=== PATIENT | female | born 1975 | race Caucasian/White ===

== ENCOUNTER 2017-12-26 16:44 | Emergency (ER) | payer BC, MEDICAID ==
[2017-12-26 16:54] VITALS: BP 126/79
--- NOTE | 2017-12-26 18:35 | EDM.PDOC ---
ED HPI GENERAL MEDICAL PROBLEM - General Chief Complaint: [employer] Problem Stated Complaint: CYST ON OVARY Time Seen by Provider: 12/26/17 18:10 Source of Information: Reports: Patient History Limitations: Reports: No Limitations - History of Present Illness INITIAL COMMENTS - FREE TEXT/NARRATIVE: 42-year-old female presents for evaluation and treatment of left pelvic pain. Patient's reports that the pain started about a week ago. She was seen by OB last week and found to have ovarian cyst. She is currently scheduled have the cyst removed on Tuesday. She is to have a preop on Tuesday. Patient states that the pain is not really worsening but she continues to have discomfort despite taking [place]. She is taking 1 [place] at a time and 2 before bed. She states that it "takes the edge off." She is concerned that she is having to miss work due to her pain she feels she cannot wait until surgery on Tuesday. She is here requesting that she go to the OR tonight due to the pain. Reports associated symptoms of a decreased appetite and states that she feels like she was "run over by a truck ". No fevers, chills, nausea, vomiting, lightheadedness or dizziness. She reports that she's had some vaginal bleeding, darker blood and spotting on and off since this all started. [employer] providers Dr. Romero. Treatments ACQUISITION LEAD: Reports: Other (see below) Other Treatments ACQUISITION LEAD: hydrocodone Left Abdomen Pain Score (Numeric/FACES): 7 - Related Data Allergies Allergy/AdvReac Type Severity Reaction Status Date / Time Iodinated Contrast- Oral and Allergy Severe Anaphylactic Verified 11/16/15 12:32 IV Dye Shock [Iodinated Contrast Media - IV Dye] azithromycin Allergy Intermediate Rash Verified 11/16/15 12:32 ciprofloxacin [From Cipro] Allergy Intermediate Hives Verified 11/16/15 12:32 ciprofloxacin HCl Allergy Intermediate Hives Verified 11/16/15 12:32 [From Cipro] erythromycin lactobionate Allergy Intermediate Rash Verified 11/16/15 12:32 [From Erythrocin] Penicillins Allergy Intermediate Rash Verified 11/16/15 12:32 Home Meds: Home Meds Acetaminophen/HYDROcodone [[place] 325-5 MG] 1 tab PO Q4H PRN #20 tablet 12/26/17 [Rx] oxyCODONE HCl/Acetaminophen [oxyCODONE-Acetaminophen 5-325] 5 - 325 mg PO Q6H PRN 12/26/17 [History] Past Medical History - Past Health History Medical/Surgical History: Denies Medical/Surgical History HEENT History: Reports: Impaired Vision Other HEENT History: wears contacts and glasses Cardiovascular History: Reports: Heart Murmur, Other (See Below) Other Cardiovascular History: Mitral valve prolapse [employer] History: Reports: 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, , Other (See Below) Other OB/BYN History: ;ovarian cysts Neurological History: Reports: Migraines - Past Surgical History Cardiovascular Surgical History: Reports: Other (See Below) GI Surgical History: Reports: Appendectomy, Other (See Below) Female Surgical History: Reports: Section Social & Family History - Tobacco Use Smoking Status *Q: Never Smoker Second Hand Smoke Exposure: No - Caffeine Use Caffeine Use: Reports: Coffee, Energy Drinks, Soda, Tea - Recreational Drug Use Recreational Drug Use: No ED ROS GENERAL - Review of Systems Review Of Systems: See Below Constitutional: Denies: Fever, Chills GI/Abdominal: Denies: Abdominal Pain, Nausea, Vomiting : Reports: Pain (left pelvic), Other (intermittent vaginal bleeding) Neurological: Denies: Syncope ED EXAM, GI/ABD - Physical Exam Exam: See Below Exam Limited By: No Limitations General Appearance: Alert, WD/WN, Anxious, Mild Distress Respiratory/Chest: No Respiratory Distress, Lungs Clear, Normal Breath Sounds Cardiovascular: Normal Peripheral Pulses, Regular Rate, Rhythm, No Murmur GI/Abdominal Exam: Normal Bowel Sounds, Soft, Non-Tender (Female) Exam: Other (identifies pain medial to the left iliace creast) Neurological: Alert, Oriented, Normal Cognition Psychiatric: Normal Affect, Normal Mood Skin Exam: Warm, Dry, Normal Color Course - Vital Signs Last Recorded V/S: Last Vital Signs Temp 36.8 C 12/26/17 16:53 Pulse 88 12/26/17 16:53 Resp 20 12/26/17 16:53 BP 126/79 12/26/17 16:53 Pulse Ox 100 12/26/17 16:53 - Re-Assessments/Exams Free Text/Narrative Re-Assessment/Exam: 12/26/17 18:30 I spoke with the patient's [employer] provider Dr. Nick marcelino regarding this patient. Dr. Romero does have some concerns about her cardiac history and would prefer that she has her preop on Tuesday as planned. She states that she is an 8 cm ovarian cyst of the left ovary. No torsion or any findings to suggest she needs an urgent cystectomy. Recommending that she continue with her current plan of care pending there is no any findings tonight to suggest that she needs to go to the ER urgently. The patient does look uncomfortable on the ER but does not look in any obvious distress. Her vitals are normal. I Do not feel she needs to go to the OR tonight for an emergent cystectomy. Does not sound that her pain is any worse. her symptoms have not changed. she just has mostly concerns about missing work due to this. We will discharge her home at this time. Discharge instructions as documented. Departure - Departure Time of Disposition: 18:31 Disposition: Home, Self-Care 01 Condition: Fair Clinical Impression: Ovarian cyst - Discharge Information Prescriptions: Acetaminophen/HYDROcodone [[place] 325-5 MG] 1 tab PO Q4H PRN #20 tablet PRN Reason: Pain Instructions: Ovarian Cyst, [id number] Referrals: PCP,None [Primary Care Provider] - Peggy Romero MD [Physician] - Forms: ED Department Discharge, ED Return to Work/School Form Additional Instructions: Contact Dr. Murrell's office tomorrow. See if there is some of the things he earlier to clear you for surgery. [place] 1 to 2 tabs every 4-6 hours as needed for severe pain not relieved by over -the-counter ibuprofen. norco is habit-forming, take as few of these as needed to control your pain. Do not drive or operate machinery within 12 hours of taking [place]. please return to the er for symptoms change or worsen.
== END 2017-12-26 18:52 | disposition home or self-care (01) ==
LOC: JD.ED 16:44
DX: N83.202 Unspecified ovarian cyst, left side (principal); Z91.041 Radiographic dye allergy status; Z90.49 Acquired absence of other specified parts of digestive tract
CPT/HCPCS: 99283; 99284

== ENCOUNTER 2017-12-30 11:52 | Inpatient (IN) | payer BC ==
[~2017-12-30 11:52] MED LIST: Lactated Ringers 1,000 ML IV SCH; Lidocaine 1%/Sod Bicarbonate in NS 8.4% 1 ML Syringe IDERM PRN; Sodium Chloride 0.9% 10 ML Syringe FLUSH PRN
[2017-12-30] MEDS ORDERED: Propofol 200 MG/20 ML SDV ONE ×2 (12:07→15:32)
[2017-12-30] MEDS ORDERED: Rocuronium 50 MG/5 ML Vial ONE ×2 (12:09→15:05)
[2017-12-30] MEDS ORDERED: fentaNYL 250 MCG/5 ML SDV ONE (12:09)
[2017-12-30] MEDS ORDERED: Bupivacaine 0.5% 30 ML SDV ONE (12:10)
[2017-12-30] MEDS ORDERED: Midazolam 1 MG/ML 2 ML SDV ONE (12:10)
--- NOTE | 2017-12-30 12:35 | PCM.PREANE ---
Preanesthetic Assessment - Anesthesia/Transfusion/Family Hx Anesthesia History: Prior Anesthesia Without Reaction Family History of Anesthesia Reaction: No Transfusion History: No Prior Transfusion(s) Intubation History: Unknown - Review of Systems General: No Symptoms Pulmonary: No Symptoms Cardiovascular: No Symptoms Gastrointestinal: No Symptoms Neurological: No Symptoms Other: Reports: None - Physical Assessment NPO Status Date: 12/29/17 NPO Status Time: 23:00 Pulse: 76 O2 Sat by Pulse Oximetry: 100 Respiratory Rate: 20 Blood Pressure: 118/76 Temperature: 98.5 C ASA Class: 2 Mental Status: Alert & Oriented x3 Airway Class: Mallampati = 1 Dentition: Reports: Normal Dentition Thyro-Mental Finger Breadths: 3 Mouth Opening Finger Breadths: 3 Lungs: Clear to Auscultation, Normal Respiratory Effort Cardiovascular: Regular Rate, Regular Rhythm - Lab Values: Laboratory Last Values Urine HCG, Qual Negative (NEGATIVE) 12/30/17 11:55 - Allergies Allergies/Adverse Reactions: Allergies Allergy/AdvReac Type Severity Reaction Status Date / Time Iodinated Contrast- Oral and Allergy Severe Anaphylactic Verified 11/16/15 12:32 IV Dye Shock [Iodinated Contrast Media - IV Dye] azithromycin Allergy Intermediate Rash Verified 11/16/15 12:32 ciprofloxacin [From Cipro] Allergy Intermediate Hives Verified 11/16/15 12:32 ciprofloxacin HCl Allergy Intermediate Hives Verified 11/16/15 12:32 [From Cipro] erythromycin lactobionate Allergy Intermediate Rash Verified 11/16/15 12:32 [From Erythrocin] Penicillins Allergy Intermediate Rash Verified 11/16/15 12:32 - Acknowledgements Anesthesia Type Planned: General Anesthesia Pt an Appropriate Candidate for the Planned Anesthesia: Yes Alternatives and Risks of Anesthesia Discussed w Pt/Guardian: Yes Pt/Guardian Understands and Agrees with Anesthesia Plan: Yes PreAnesthesia Questionnaire - Past Health History Medical/Surgical History: Denies Medical/Surgical History HEENT History: Reports: Impaired Vision Other HEENT History: wears contacts and glasses Cardiovascular History: Reports: Heart Murmur, Other (See Below) (mitral valve prolapse) Other Cardiovascular History: Mitral valve prolapse Respiratory History: Reports: None Gastrointestinal History: Reports: None Genitourinary History: Reports: None 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, , Other (See Below) Other OB/BYN History: ;ovarian cysts Musculoskeletal History: Reports: None Neurological History: Reports: Migraines (no headache today) Psychiatric History: Reports: None Endocrine/Metabolic History: Reports: None Hematologic History: Reports: None Immunologic History: Reports: None Oncologic (Cancer) History: Reports: None Dermatologic History: Reports: None - Infectious Disease History Infectious Disease History: Reports: None - Past Surgical History Head Surgeries/Procedures: Reports: None HEENT Surgical History: Reports: None, Adenoidectomy, Tonsillectomy Cardiovascular Surgical History: Reports: Other (See Below) (heart cath as a child for murmur per pt mother) GI Surgical History: Reports: Appendectomy, Other (See Below) Female Surgical History: Reports: Section, Other (See Below) ( diagnostic laparoscopies for endometriosis) Male Surgical History: Reports: None - SUBSTANCE USE Smoking Status *Q: Never Smoker Second Hand Smoke Exposure: No Recreational Drug Use History: No - HOME MEDS Home Medications: Home Meds Acetaminophen/HYDROcodone [[place] 325-5 MG] 1 tab PO Q4H PRN #20 tablet 12/26/17 [Rx] oxyCODONE HCl/Acetaminophen [oxyCODONE-Acetaminophen 5-325] 5 - 325 mg PO Q6H PRN 12/26/17 [History] - CURRENT (IN HOUSE) MEDS Current Meds: Current Medications Lactated Ringer's (Ringers, Lactated) 1,000 mls @ 125 mls/hr IV ASDIRECTED MELISSA Stop: 12/30/17 23:00 Lidocaine/Sodium Bicarbonate (Buffered Lidocaine 1% In Ns 8.4%) 0.25 ml IDERM ONETIME PRN PRN Reason: Prior to IV Start Stop: 12/30/17 18:00 Sodium Chloride (Saline Flush) 10 ml FLUSH ASDIRECTED PRN PRN Reason: Keep Vein Open Stop: 12/30/17 18:00 Discontinued Medications Bupivacaine HCl (Marcaine 0.5%) Confirm Administered Dose 30 ml .ROUTE .STK-MED ONE Stop: 12/30/17 12:11 Fentanyl (Sublimaze) Confirm Administered Dose 250 mcg .ROUTE .STK-MED ONE Stop: 12/30/17 12:10 Midazolam HCl (Versed 1 Mg/Ml) Confirm Administered Dose 2 mg .ROUTE .STK-MED ONE Stop: 12/30/17 12:11 Propofol (Diprivan 20 Ml) Confirm Administered Dose 200 mg .ROUTE .STK-MED ONE Stop: 12/30/17 12:08 Rocuronium [place] (Zemuron) Confirm Administered Dose 50 mg .ROUTE .STK-MED ONE Stop: 12/30/17 12:10
[2017-12-30] MEDS ORDERED: Ondansetron 4 MG/2 ML SDV IVPUSH PRN ×2 (13:43→17:56)
[2017-12-30] MEDS ORDERED: fentaNYL 100 MCG/2 ML SDV IVPUSH PRN (13:43)
[2017-12-30] MEDS ORDERED: diphenhydrAMINE 50 MG/ML SDV IVPUSH PRN (13:43)
[2017-12-30] MEDS ORDERED: Meperidine PF 50 MG/ML Syringe IVPUSH PRN ×2 (13:43→16:44)
[2017-12-30] MEDS ORDERED: ceFAZolin 1 GM Vial ONE ×3 (13:50→15:12)
[2017-12-30] MEDS ORDERED: Ondansetron 4 MG/2 ML SDV ONE (13:50)
[2017-12-30] MEDS ORDERED: Ketorolac 30 MG/ML SDV ONE (13:50)
[2017-12-30] MEDS ORDERED: HYDROmorphone 0.5 MG/0.5 ML Syringe ONE ×3 (13:51→16:16)
[2017-12-30] MEDS ORDERED: fentaNYL 100 MCG/2 ML SDV ONE ×2 (14:06→14:31)
[2017-12-30] MEDS ORDERED: HYDROmorphone 0.5 MG/0.5 ML Syringe IVPUSH ONE (14:15)
[2017-12-30] MEDS ORDERED: Dexamethasone 4 MG/ML 5 ML MDV ONE (15:33)
[2017-12-30] MEDS ORDERED: Neostigmine Methylsulfate 1 MG/ML 5 ML Syringe ONE (16:00)
--- NOTE | 2017-12-30 16:32 | PCM.OPNOTE ---
- General Post-Op/Procedure Note Date of Surgery/Procedure: 12/30/17 Operative Procedure(s): Diagnostic laparoscopy with conversion to exploratory laparotomy, extensive lysis of adhesions, and left salpingo-oophorectomy Findings: Enlarged left ovary appearing about 8-9 cm in size. Cyst is simple in appearance. Flimsy and dense adhesive disease between the ovary and bowel and also between the fallopian tube and bowel. Edematous and inflamed infundibulopelvic ligament. Normal appearance of the uterus and right ovary. Pre Op Diagnosis: Ovarian cyst Post-Op Diagnosis: Same Anesthesia Technique: General ET Tube Primary Surgeon: Peggy Romero Anesthesia Provider: Kat Apple Pathology: Left ovary, fallopian tube sent to pathology. Fluid Replacement, Intraop: 2,500 EBL in mLs: 120 Drain/Tube Comments:: None Complications: None Condition: Good Free Text/Narrative:: The risks, benefits, indications, potential complications, and alternatives were explained to the patient and informed consent obtained. The patient was taken to the Operating Room where general anesthesia was induced without complication. The patient was placed in dorsal lithotomy with Triston Stirrups. The patient was then prepped and draped in the usual sterile fashion. A sterile bivalve speculum was placed into the vagina and the anterior lip of the cervix was grasped with a single tooth tenaculum. A [employer] uterine manipulator was then advanced into the cervix and attached to the tenaculum to allow uterine manipulation throughout the procedure. The speculum was removed from the vagina. Attention was then turned to the patients abdomen where a Veress needle was inserted in the left upper quadrant about 2 cm below the inferior margin of the rib and in the midclavicular line. Intraabdominal placement was confirmed with a drop test using a saline filled syringe and low intraabdominal pressure on low flow. A horizontal incision was made and the 5 mm blunt trocar was inserted with the 5 mm laparoscope inserted through the trocar for direct visualization of abdominal entry through the clear view lens. Once intraabdominal placement was confirmed, the blunt obturator was removed and the laparoscope was inserted. A pneumoperitoneum was obtained with C02 gas. The patient was placed in Trendelenburg position and the uterus was manipulated to reveal the pelvic findings detailed above as well. A vertical incision was made in the umbilical fold and an additional 5 mm port was placed. Unfortunately due to adhesive disease between the bowel and ovary/fallopian tube decision made to convert to an open procedure. The two 5 mm trocars were removed under direct visualization. The pneumoperitoneum was allowed to escape. A Pfannenstiel skin incision was made with a scalpel and carried down to the rectus fascia. The fascia was incised and opened the length of the skin incision. The peritoneum was entered sharply and extended. Exploration of the abdomen and pelvis was undertaken with findings noted above. The bowel was then packed with laparotomy sponges and an Manish retractor was placed to optimize visualization of the operating field. Using a combination of sharp dissection and blunt dissection the adhesions between the bowel and the ovary were taken down. The same process was carried out between the fallopian tube and bowel. Bleeding encountered with this dissection was controlled with interrupted sutures of 3-0 vicryl placed in figure of eight fashion and also cautery. Towards the end of this dissection there was rupture of the ovarian cyst with slow release of a large amount of clear fluid. Eventually the infundibulopelvic ligament was able to be isolated , cauterized, and transected with the Ligasure. This was then used to cauterize and transect from the fimbria to the level of the uterine cornua. The utero-ovarian ligament was then cauterized and transected with the Ligasure thus freeing the ovary and fallopian tube. Irrigation performed of the abdomen. All dissection beds and pedicles were inspected one more time and found to be hemostatic. The rectus fascia was closed with a running 0-vicryl suture. Subcutaneous tissues were ensured to be hemostatic and was then closed with a running suture of 0 vicryl. The skin was closed with a running 4-0 Monocryl suture and a sterile dressing applied. The previous laparoscopic skin incisions were re-approximated with 4-0 Monocryl in a running subcuticular fashion. Dermabond was also used to seal the incisions. Attention then turned to the vagina where the hulka manipulator was removed. Hemostasis of site obtained with silver nitrate. A waterman catheter was then placed in a sterile fashion given conversion to open procedure. The patient tolerated the procedure well. All sponge, needle, and instrument counts were correct times two. She was taken to the recovery room in stable condition.
--- NOTE | 2017-12-30 16:44 | PCM.POSTAN ---
POST ANESTHESIA ASSESSMENT - MENTAL STATUS Mental Status: Alert, Oriented - VITAL SIGNS Pulse Rate: 98 SaO2: 100 Resp Rate: 19 Blood Pressure: 107/60 Temperature: 37.3 C - RESPIRATORY Respiratory Status: Respiratory Rate WNL, Airway Patent, O2 Saturation Stable, Supplemental Oxygen - CARDIOVASCULAR CV Status: Pulse Rate WNL, Blood Pressure Stable - GASTROINTESTINAL GI Status: No Symptoms - PAIN Pain Score: 0 - POST OP HYDRATION Hydration Status: Adequate & Stable
[2017-12-30] MEDS: Acetaminophen/oxyCODONE 325-5 MG Tab PO PRN ×2 (18:40→23:22)
[2017-12-30] MEDS ORDERED: Lactated Ringers 1,000 ML IV SCH (18:45)
--- NOTE | 2017-12-30 18:49 | PCM48HPAN ---
Post Anesthesia Note - EVALUATION WITHIN 48HRS OF ANESTHETIC Vital Signs in Normal Range: Yes Patient Participated in Evaluation: Yes Respiratory Function Stable: Yes Airway Patent: Yes Cardiovascular Function Stable: Yes Hydration Status Stable: Yes Pain Control Satisfactory: Yes Nausea and Vomiting Control Satisfactory: Yes Mental Status Recovered: Yes
[2017-12-30] MEDS: ceFAZolin 2 GM in Premix Bag 1 BAG IV SCH (19:00)
[2017-12-30] MEDS: Docusate Sodium 100 MG Cap PO SCH (20:29)
[2017-12-31] MEDS: ceFAZolin 2 GM in Premix Bag 1 BAG IV SCH ×2 (01:55→09:26)
[2017-12-31] MEDS: Ketorolac 15 MG/ML SDV IVPUSH SCH ×2 (01:56→09:24)
[2017-12-31] MEDS: Acetaminophen/oxyCODONE 325-5 MG Tab PO PRN ×5 (05:29→22:46)
--- NOTE | 2017-12-31 08:43 | PCM.SURGPN ---
- General Info Date of Service: 12/31/17 POD#: 1 Functional Status: Reports: Pain Controlled, Tolerating Diet, Ambulating - Review of Systems General: Reports: No Symptoms Pulmonary: Reports: No Symptoms Cardiovascular: Reports: No Symptoms Gastrointestinal: Reports: Abdominal Pain (manageable ) Genitourinary: Reports: No Symptoms Musculoskeletal: Reports: No Symptoms Neurological: Reports: No Symptoms - Patient Data Vitals - Most Recent: Last Vital Signs Temp 36.8 C 12/31/17 08:17 Pulse 76 12/31/17 08:17 Resp 16 12/31/17 08:17 BP 106/85 12/31/17 08:17 Pulse Ox 100 12/31/17 08:17 Weight - Most Recent: 61.32 kg I&O - Last 24 Hours: Intake & Output 12/30/17 12/31/17 12/31/17 22:59 06:59 14:59 Intake Total 3550 925 Output Total 650 1300 Balance 2900 -375 Lab Results Last 24 Hrs: Laboratory Results - last 24 hr 12/30/17 12/30/17 12/30/17 Range/Units 11:55 12:15 12:15 WBC 8.39 (3.98-10.04) K/mm3 RBC 4.53 (3.98-5.22) M/mm3 Hgb 9.7 L (11.2-15.7) gm/L Hct 32.3 L (34.1-44.9) % MCV 71.3 L (79.4-94.8) fl MCH 21.4 L (25.6-32.2) pg MCHC 30.0 L (32.2-35.5) g/dl RDW Std Deviation 37.7 (36.4-46.3) fL Plt Count 304 (182-369) K/mm3 MPV 9.8 (9.4-12.3) fl Neut % (Auto) 71.8 H (34.0-71.1) % Lymph % (Auto) 18.2 L (19.3-51.7) % [place] % (Auto) 8.2 (4.7-12.5) % Eos % (Auto) 1.1 (0.7-5.8) Baso % (Auto) 0.5 (0.1-1.2) % Neut # (Auto) 6.02 (1.56-6.13) K/mm3 Lymph # (Auto) 1.53 (1.18-3.74) K/mm3 [place] # (Auto) 0.69 H (0.24-0.36) K/mm3 Eos # (Auto) 0.09 (0.04-0.36) K/mm3 Baso # (Auto) 0.04 (0.01-0.08) K/mm3 Manual Slide Review Abnormal smear Sodium 138 (136-145) mEq/L Potassium 3.6 (3.5-5.1) mEq/L Chloride 103 (98-107) mEq/L Carbon Dioxide 24 (21-32) mEq/L Anion Gap 14.6 (5-15) BUN 12 (7-18) mg/dL Creatinine 0.6 (0.55-1.02) mg/dL Est Cr Clr Drug Dosing TNP Estimated GFR (MDRD) > 60 (>60) mL/min BUN/Creatinine Ratio 20.0 H (14-18) Glucose 85 (74-106) mg/dL Calcium 9.0 (8.5-10.1) mg/dL Urine HCG, Qual Negative (NEGATIVE) Blood Type Gel Antibody Screen 12/30/17 12/31/17 Range/Units 12:15 05:33 WBC 16.31 H (3.98-10.04) K/mm3 RBC 3.82 L (3.98-5.22) M/mm3 Hgb 8.1 L (11.2-15.7) gm/L Hct 27.5 L (34.1-44.9) % MCV 72.0 L (79.4-94.8) fl MCH 21.2 L (25.6-32.2) pg MCHC 29.5 L (32.2-35.5) g/dl RDW Std Deviation 37.8 (36.4-46.3) fL Plt Count 283 (182-369) K/mm3 MPV 9.9 (9.4-12.3) fl Neut % (Auto) (34.0-71.1) % Lymph % (Auto) (19.3-51.7) % [place] % (Auto) (4.7-12.5) % Eos % (Auto) (0.7-5.8) Baso % (Auto) (0.1-1.2) % Neut # (Auto) (1.56-6.13) K/mm3 Lymph # (Auto) (1.18-3.74) K/mm3 [place] # (Auto) (0.24-0.36) K/mm3 Eos # (Auto) (0.04-0.36) K/mm3 Baso # (Auto) (0.01-0.08) K/mm3 Manual Slide Review Sodium (136-145) mEq/L Potassium (3.5-5.1) mEq/L Chloride (98-107) mEq/L Carbon Dioxide (21-32) mEq/L Anion Gap (5-15) BUN (7-18) mg/dL Creatinine (0.55-1.02) mg/dL Est Cr Clr Drug Dosing Estimated GFR (MDRD) (>60) mL/min BUN/Creatinine Ratio (14-18) Glucose (74-106) mg/dL Calcium (8.5-10.1) mg/dL Urine HCG, Qual (NEGATIVE) Blood Type AB POSITIVE Gel Antibody Screen Negative Med Orders - Current: Current Medications Docusate Sodium (Colace) 100 mg PO BID [facility] Last Admin: 12/30/17 20:29 Dose: Not Given Lactated Ringer's (Ringers, Lactated) 1,000 mls @ 75 mls/hr IV ASDIRECTED [facility] Last Admin: 12/30/17 19:00 Dose: 50 mls/hr Ketorolac Tromethamine (Toradol) 30 mg IVPUSH Q8H [facility] Stop: 12/31/17 09:01 Last Admin: 12/31/17 01:56 Dose: 30 mg Meperidine HCl (Demerol) 12.5 mg IVPUSH ONETIME PRN PRN Reason: Shivering Ondansetron HCl (Zofran) 4 mg IVPUSH Q6H PRN PRN Reason: Nausea/Vomiting Last Admin: 12/30/17 20:57 Dose: 4 mg Oxycodone/Acetaminophen (Percocet 325-5 Mg) 2 tab PO Q4H PRN PRN Reason: Pain (moderate 4-6) Last Admin: 12/31/17 05:29 Dose: 2 tab Discontinued Medications Bupivacaine HCl (Marcaine 0.5%) Confirm Administered Dose 30 ml .ROUTE .STK-MED ONE Stop: 12/30/17 12:11 Last Admin: 12/30/17 13:59 Dose: 8 ml Cefazolin Sodium (Ancef) Confirm Administered Dose 1 gm .ROUTE .STK-MED ONE Stop: 12/30/17 13:51 Cefazolin Sodium (Ancef) Confirm Administered Dose 1 gm .ROUTE .STK-MED ONE Stop: 12/30/17 13:51 Cefazolin Sodium (Ancef) Confirm Administered Dose 2 gm .ROUTE .STK-MED ONE Stop: 12/30/17 15:13 Dexamethasone (Dexamethasone) Confirm Administered Dose 20 mg .ROUTE .STK-MED ONE Stop: 12/30/17 15:34 Diphenhydramine HCl (Benadryl) 25 mg IVPUSH Q6H PRN PRN Reason: pruritis Stop: 12/30/17 18:00 Fentanyl (Sublimaze) Confirm Administered Dose 250 mcg .ROUTE .STK-MED ONE Stop: 12/30/17 12:10 Fentanyl (Sublimaze) 50 mcg IVPUSH Q5M PRN PRN Reason: Pain Stop: 12/30/17 18:00 Last Admin: 12/30/17 17:00 Dose: 50 mcg Fentanyl (Sublimaze) Confirm Administered Dose 100 mcg .ROUTE .STK-MED ONE Stop: 12/30/17 14:07 Fentanyl (Sublimaze) Confirm Administered Dose 100 mcg .ROUTE .STK-MED ONE Stop: 12/30/17 14:32 Glycopyrrolate () Confirm Administered Dose 1 mg .ROUTE .STK-MED ONE Stop: 12/30/17 16:01 Hydromorphone HCl (Dilaudid) 0.5 mg IVPUSH ONETIME ONE Stop: 12/30/17 14:16 Last Admin: 12/30/17 18:50 Dose: Not Given Hydromorphone HCl (Dilaudid) Confirm Administered Dose 0.5 mg .ROUTE .STK-MED ONE Stop: 12/30/17 13:52 Hydromorphone HCl (Dilaudid) Confirm Administered Dose 0.5 mg .ROUTE .STK-MED ONE Stop: 12/30/17 16:07 Hydromorphone HCl (Dilaudid) Confirm Administered Dose 0.5 mg .ROUTE .STK-MED ONE Stop: 04/20/18 16:17 Lactated Ringer's (Ringers, Lactated) 1,000 mls @ 125 mls/hr IV ASDIRECTED [facility] Stop: 12/30/17 23:00 Last Admin: 12/30/17 12:20 Dose: 125 mls/hr Cefazolin Sodium/Dextrose 2 gm (/ Premix) 50 mls @ 100 mls/hr IV Q6H [facility] Stop: 12/31/17 08:29 Last Admin: 12/31/17 01:55 Dose: 100 mls/hr Ketorolac Tromethamine (Toradol) Confirm Administered Dose 30 mg .ROUTE .STK- MED ONE Stop: 12/30/17 13:51 Lidocaine/Sodium Bicarbonate (Buffered Lidocaine 1% In Ns 8.4%) 0.25 ml IDERM ONETIME PRN PRN Reason: Prior to IV Start Stop: 12/30/17 18:00 Last Admin: 12/30/17 12:19 Dose: 0.25 ml Meperidine HCl (Demerol) 12.5 mg IVPUSH ASDIRECTED PRN PRN Reason: Shivering Stop: 12/30/17 18:00 Midazolam HCl (Versed 1 Mg/Ml) Confirm Administered Dose 2 mg .ROUTE .STK-MED ONE Stop: 12/30/17 12:11 Neostigmine Methylsulfate (Neostigmine) Confirm Administered Dose 5 mg .ROUTE .STK-MED ONE Stop: 12/30/17 16:01 Ondansetron HCl (Zofran) 4 mg IVPUSH ONETIME PRN PRN Reason: Nausea/Vomiting Stop: 12/30/17 18:00 Ondansetron HCl (Zofran) Confirm Administered Dose 4 mg .ROUTE .STK-MED ONE Stop: 12/30/17 13:51 Propofol (Diprivan 20 Ml) Confirm Administered Dose 200 mg .ROUTE .STK-MED ONE Stop: 12/30/17 12:08 Propofol (Diprivan 20 Ml) Confirm Administered Dose 200 mg .ROUTE .STK-MED ONE Stop: 12/30/17 15:33 Rocuronium [place] (Zemuron) Confirm Administered Dose 50 mg .ROUTE .STK-MED ONE Stop: 12/30/17 12:10 Rocuronium [place] (Zemuron) Confirm Administered Dose 50 mg .ROUTE .STK-MED ONE Stop: 12/30/17 15:06 Sodium Chloride (Saline Flush) 10 ml FLUSH ASDIRECTED PRN PRN Reason: Keep Vein Open Stop: 12/30/17 18:00 - Exam Wound/Incisions: Healing Well, Dressing Dry and Intact General: Alert, Oriented, Cooperative Lungs: Clear to Auscultation, Normal Respiratory Effort Cardiovascular: Regular Rate, Regular Rhythm GI/Abdominal Exam: Soft, Tender (appropriate post op) Extremities: Normal Inspection Skin: Warm, Dry, Intact - Problem List & Annotations (1) Ovarian cyst SNOMED Code(s): 91530708 Code(s): N83.209 - UNSPECIFIED OVARIAN CYST, UNSPECIFIED SIDE Status: Acute Current Visit: No Qualifiers: Laterality: left Qualified Code(s): N83.202 - Unspecified ovarian cyst, left side (2) S/P exploratory laparotomy SNOMED Code(s): 940056395, 47068644, 144953575 Code(s): Z98.890 - OTHER SPECIFIED POSTPROCEDURAL STATES Status: Acute Current Visit: Yes (3) History of left salpingo-oophorectomy SNOMED Code(s): 479780244, 955976262 Code(s): Z90.79 - ACQUIRED ABSENCE OF OTHER GENITAL ORGAN(S); Z90.721 - ACQUIRED ABSENCE OF OVARIES, UNILATERAL Status: Acute Current Visit: Yes - Problem List Review Problem List Initiated/Reviewed/Updated: Yes - My Orders Last 24 Hours: Active Orders 24 hr Category Date Time Status Patient Status [ADT] Routine ADT 12/31/17 03:25 Active [place] Catheter Insertion [Insert Urinary Catheter] [OM. Care 12/30/17 16:22 Ordered PC] Stat Notify Provider [RC] ASDIRECTED Care 12/30/17 13:43 Active Oxygen Therapy [RC] ASDIRECTED Care 12/30/17 13:43 Active RT Incentive Spirometry [RC] Q2HWA Care 12/30/17 17:56 Active Up ad Jessie [RC] QSHIFT Care 12/30/17 17:56 Active Urinary Catheter Assessment [RC] BID Care 12/30/17 18:51 Active Vital Signs [RC] Q4HR Care 12/30/17 17:56 Active Regular Diet [DIET] Diet 12/30/17 Dinner Active Acetaminophen/oxyCODONE [Percocet 325-5 MG] Med 12/30/17 17:56 Active 2 tab PO Q4H PRN Docusate Sodium [Colace] Med 12/30/17 21:00 Active 100 mg PO BID Ketorolac [Toradol] Med 12/31/17 01:00 Active 30 mg IVPUSH Q8H Lactated Ringers [Ringers, Lactated] 1,000 ml Med 12/30/17 18:45 Active IV ASDIRECTED Meperidine [Demerol] Med 12/30/17 16:44 Active 12.5 mg IVPUSH ONETIME PRN Ondansetron [Zofran] Med 12/30/17 17:56 Active 4 mg IVPUSH Q6H PRN Sequential Compression Device [OM.PC] Per Unit Routine Oth 12/30/17 17:56 Ordered Resuscitation Status Routine Resus Stat 12/30/17 16:34 Ordered Medication Orders Docusate Sodium (Colace) 100 mg PO BID [facility] Last Admin: 12/30/17 20:29 Dose: Not Given Lactated Ringer's (Ringers, Lactated) 1,000 mls @ 75 mls/hr IV ASDIRECTED [facility] Last Admin: 12/30/17 19:00 Dose: 50 mls/hr Ketorolac Tromethamine (Toradol) 30 mg IVPUSH Q8H [facility] Stop: 12/31/17 09:01 Last Admin: 12/31/17 01:56 Dose: 30 mg Meperidine HCl (Demerol) 12.5 mg IVPUSH ONETIME PRN PRN Reason: Shivering Ondansetron HCl (Zofran) 4 mg IVPUSH Q6H PRN PRN Reason: Nausea/Vomiting Last Admin: 12/30/17 20:57 Dose: 4 mg Oxycodone/Acetaminophen (Percocet 325-5 Mg) 2 tab PO Q4H PRN PRN Reason: Pain (moderate 4-6) Last Admin: 12/31/17 05:29 Dose: 2 tab Admin: 12/30/17 23:22 Dose: 2 tab Admin: 12/30/17 18:40 Dose: 2 tab - Assessment Assessment (Free Text/Narrative):: POD#1 from diagnostic lap, converted to ex lap/LSO for large/adherent ovarian cyst - Plan Plan (Free Text/Narrative):: * Routine post op cares * D/c guevara this AM * D/c IVF * Stop antibiotics today * Oral medications to be continued * Potential d/c home tomorrow
[2017-12-31] MEDS: Docusate Sodium 100 MG Cap PO SCH ×2 (09:24→22:45)
[2017-12-31] MEDS: Ibuprofen 600 MG Tab PO PRN (17:49)
[2018-01-01] MEDS: Acetaminophen/oxyCODONE 325-5 MG Tab PO PRN ×2 (06:33→11:03)
--- NOTE | 2018-01-01 07:21 | PCM.SURGPN ---
- General Info Date of Service: 01/01/18 POD#: 2 Functional Status: Reports: Pain Controlled, Tolerating Diet, Ambulating, Urinating - Review of Systems General: Reports: No Symptoms Pulmonary: Reports: No Symptoms Cardiovascular: Reports: No Symptoms Gastrointestinal: Reports: Abdominal Pain (manageable), Flatus (small amounts) Genitourinary: Reports: No Symptoms Musculoskeletal: Reports: No Symptoms - Patient Data Vitals - Most Recent: Last Vital Signs Temp 36.8 C 12/31/17 22:46 Pulse 83 12/31/17 22:46 Resp 14 12/31/17 22:46 BP 97/63 12/31/17 22:46 Pulse Ox 98 12/31/17 22:46 Weight - Most Recent: 61.32 kg I&O - Last 24 Hours: Intake & Output 12/31/17 01/01/18 01/01/18 22:59 06:59 14:59 Intake Total 850 Output Total 300 Balance 550 Med Orders - Current: Current Medications Docusate Sodium (Colace) 100 mg PO BID [facility] Last Admin: 12/31/17 22:45 Dose: 100 mg Ibuprofen (Motrin) 600 mg PO Q6H PRN PRN Reason: Pain Last Admin: 12/31/17 17:49 Dose: 600 mg Meperidine HCl (Demerol) 12.5 mg IVPUSH ONETIME PRN PRN Reason: Shivering Ondansetron HCl (Zofran) 4 mg IVPUSH Q6H PRN PRN Reason: Nausea/Vomiting Last Admin: 12/30/17 20:57 Dose: 4 mg Oxycodone/Acetaminophen (Percocet 325-5 Mg) 2 tab PO Q4H PRN PRN Reason: Pain (moderate 4-6) Last Admin: 01/01/18 06:33 Dose: 2 tab Discontinued Medications Bupivacaine HCl (Marcaine 0.5%) Confirm Administered Dose 30 ml .ROUTE .STK-MED ONE Stop: 12/30/17 12:11 Last Admin: 12/30/17 13:59 Dose: 8 ml Cefazolin Sodium (Ancef) Confirm Administered Dose 1 gm .ROUTE .STK-MED ONE Stop: 12/30/17 13:51 Cefazolin Sodium (Ancef) Confirm Administered Dose 1 gm .ROUTE .STK-MED ONE Stop: 12/30/17 13:51 Cefazolin Sodium (Ancef) Confirm Administered Dose 2 gm .ROUTE .STK-MED ONE Stop: 12/30/17 15:13 Dexamethasone (Dexamethasone) Confirm Administered Dose 20 mg .ROUTE .STK-MED ONE Stop: 12/30/17 15:34 Diphenhydramine HCl (Benadryl) 25 mg IVPUSH Q6H PRN PRN Reason: pruritis Stop: 12/30/17 18:00 Fentanyl (Sublimaze) Confirm Administered Dose 250 mcg .ROUTE .STK-MED ONE Stop: 12/30/17 12:10 Fentanyl (Sublimaze) 50 mcg IVPUSH Q5M PRN PRN Reason: Pain Stop: 12/30/17 18:00 Last Admin: 12/30/17 17:00 Dose: 50 mcg Fentanyl (Sublimaze) Confirm Administered Dose 100 mcg .ROUTE .STK-MED ONE Stop: 12/30/17 14:07 Fentanyl (Sublimaze) Confirm Administered Dose 100 mcg .ROUTE .STK-MED ONE Stop: 12/30/17 14:32 Glycopyrrolate () Confirm Administered Dose 1 mg .ROUTE .STK-MED ONE Stop: 12/30/17 16:01 Hydromorphone HCl (Dilaudid) 0.5 mg IVPUSH ONETIME ONE Stop: 12/30/17 14:16 Last Admin: 12/30/17 18:50 Dose: Not Given Hydromorphone HCl (Dilaudid) Confirm Administered Dose 0.5 mg .ROUTE .STK-MED ONE Stop: 12/30/17 13:52 Hydromorphone HCl (Dilaudid) Confirm Administered Dose 0.5 mg .ROUTE .STK-MED ONE Stop: 12/30/17 16:07 Hydromorphone HCl (Dilaudid) Confirm Administered Dose 0.5 mg .ROUTE .STK-MED ONE Stop: 12/30/17 16:17 Lactated Ringer's (Ringers, Lactated) 1,000 mls @ 125 mls/hr IV ASDIRECTED [facility] Stop: 12/30/17 23:00 Last Admin: 12/30/17 12:20 Dose: 125 mls/hr Cefazolin Sodium/Dextrose 2 gm (/ Premix) 50 mls @ 100 mls/hr IV Q6H [facility] Stop: 12/31/17 08:29 Last Admin: 12/31/17 09:26 Dose: 100 mls/hr Lactated Ringer's (Ringers, Lactated) 1,000 mls @ 75 mls/hr IV ASDIRECTED [facility] Last Admin: 12/30/17 19:00 Dose: 50 mls/hr Ketorolac Tromethamine (Toradol) Confirm Administered Dose 30 mg .ROUTE .STK- MED ONE Stop: 12/30/17 13:51 Ketorolac Tromethamine (Toradol) 30 mg IVPUSH Q8H [facility] Stop: 12/31/17 09:01 Last Admin: 12/31/17 09:24 Dose: 30 mg Lidocaine/Sodium Bicarbonate (Buffered Lidocaine 1% In Ns 8.4%) 0.25 ml IDERM ONETIME PRN PRN Reason: Prior to IV Start Stop: 12/30/17 18:00 Last Admin: 12/30/17 12:19 Dose: 0.25 ml Meperidine HCl (Demerol) 12.5 mg IVPUSH ASDIRECTED PRN PRN Reason: Shivering Stop: 12/30/17 18:00 Midazolam HCl (Versed 1 Mg/Ml) Confirm Administered Dose 2 mg .ROUTE .STK-MED ONE Stop: 12/30/17 12:11 Neostigmine Methylsulfate (Neostigmine) Confirm Administered Dose 5 mg .ROUTE .STK-MED ONE Stop: 12/30/17 16:01 Ondansetron HCl (Zofran) 4 mg IVPUSH ONETIME PRN PRN Reason: Nausea/Vomiting Stop: 12/30/17 18:00 Ondansetron HCl (Zofran) Confirm Administered Dose 4 mg .ROUTE .STK-MED ONE Stop: 12/30/17 13:51 Propofol (Diprivan 20 Ml) Confirm Administered Dose 200 mg .ROUTE .STK-MED ONE Stop: 12/30/17 12:08 Propofol (Diprivan 20 Ml) Confirm Administered Dose 200 mg .ROUTE .STK-MED ONE Stop: 12/30/17 15:33 Rocuronium [place] (Zemuron) Confirm Administered Dose 50 mg .ROUTE .STK-MED ONE Stop: 12/30/17 12:10 Rocuronium [place] (Zemuron) Confirm Administered Dose 50 mg .ROUTE .STK-MED ONE Stop: 12/30/17 15:06 Sodium Chloride (Saline Flush) 10 ml FLUSH ASDIRECTED PRN PRN Reason: Keep Vein Open Stop: 12/30/17 18:00 - Exam Wound/Incisions: Healing Well, No Drainage General: Alert, Oriented, Cooperative Lungs: Clear to Auscultation, Normal Respiratory Effort Cardiovascular: Regular Rate, Regular Rhythm GI/Abdominal Exam: Soft, Tender (appropriate post op) Extremities: Normal Inspection Skin: Warm, Dry, Intact - Problem List & Annotations (1) Ovarian cyst SNOMED Code(s): 46836014 Code(s): N83.209 - UNSPECIFIED OVARIAN CYST, UNSPECIFIED SIDE Status: Acute Current Visit: No Qualifiers: Laterality: left Qualified Code(s): N83.202 - Unspecified ovarian cyst, left side (2) S/P exploratory laparotomy SNOMED Code(s): 596466760, 92741210, 236291077 Code(s): Z98.890 - OTHER SPECIFIED POSTPROCEDURAL STATES Status: Acute Current Visit: Yes (3) History of left salpingo-oophorectomy SNOMED Code(s): 280180909, 238650640 Code(s): Z90.79 - ACQUIRED ABSENCE OF OTHER GENITAL ORGAN(S); Z90.721 - ACQUIRED ABSENCE OF OVARIES, UNILATERAL Status: Acute Current Visit: Yes - Problem List Review Problem List Initiated/Reviewed/Updated: Yes - My Orders Last 24 Hours: Active Orders 24 hr Category Date Time Status Ibuprofen [Motrin] Med 12/31/17 14:25 Active 600 mg PO Q6H PRN Peripheral IV Discontinue [OM.PC] Routine Oth 12/31/17 08:30 Ordered Medication Orders Docusate Sodium (Colace) 100 mg PO BID [facility] Last Admin: 12/31/17 22:45 Dose: 100 mg Admin: 12/31/17 09:24 Dose: 100 mg Admin: 12/30/17 20:29 Dose: Not Given Ibuprofen (Motrin) 600 mg PO Q6H PRN PRN Reason: Pain Last Admin: 12/31/17 17:49 Dose: 600 mg Meperidine HCl (Demerol) 12.5 mg IVPUSH ONETIME PRN PRN Reason: Shivering Ondansetron HCl (Zofran) 4 mg IVPUSH Q6H PRN PRN Reason: Nausea/Vomiting Last Admin: 12/30/17 20:57 Dose: 4 mg Oxycodone/Acetaminophen (Percocet 325-5 Mg) 2 tab PO Q4H PRN PRN Reason: Pain (moderate 4-6) Last Admin: 01/01/18 06:33 Dose: 2 tab Admin: 12/31/17 22:46 Dose: 2 tab Admin: 12/31/17 18:41 Dose: 2 tab Admin: 12/31/17 14:48 Dose: 2 tab Admin: 12/31/17 10:32 Dose: 2 tab Admin: 12/31/17 05:29 Dose: 2 tab Admin: 12/30/17 23:22 Dose: 2 tab Admin: 12/30/17 18:40 Dose: 2 tab - Assessment Assessment (Free Text/Narrative):: POD#2 - Plan Plan (Free Text/Narrative):: Discharge home today Follow up in clinic in 1-2 weeks
[2018-01-01] MEDS ORDERED: Polyethylene Glycol 3350 Powder 17 GM Packet PO ONE (07:50)
[2018-01-01] MEDS: Ibuprofen 600 MG Tab PO PRN (08:02)
--- NOTE | 2018-01-01 09:16 | PCM.DCSUM1 ---
Discharge Summary - Discharge Data Discharge Date: 01/01/18 Discharge Disposition: Home, Self-Care 01 Condition: Good - Discharge Diagnosis/Problem(s) (1) Ovarian cyst SNOMED Code(s): 96544501 ICD Code: N83.209 - UNSPECIFIED OVARIAN CYST, UNSPECIFIED SIDE Status: Acute Current Visit: No Qualifiers: Laterality: left Qualified Code(s): N83.202 - Unspecified ovarian cyst, left side (2) S/P exploratory laparotomy SNOMED Code(s): 626255668, 75867498, 148269177 ICD Code: Z98.890 - OTHER SPECIFIED POSTPROCEDURAL STATES Status: Acute Current Visit: Yes (3) History of left salpingo-oophorectomy SNOMED Code(s): 366746241, 803212216 ICD Code: Z90.79 - ACQUIRED ABSENCE OF OTHER GENITAL ORGAN(S); Z90.721 - ACQUIRED ABSENCE OF OVARIES, UNILATERAL Status: Acute Current Visit: Yes - Patient Summary/Data Operative Procedure(s) Performed: Diagnostic laparoscopy with conversion to exploratory laparotomy, extensive lysis of adhesions, and left salpingo- oophorectomy Consults: None Recommended Follow-up Testing/Procedures: Follow up in 1-2 weeks for incision check Hospital Course: Patient admitted for planned cystectomy/USO for findings of ovarian cyst. Laparoscopic procedure converted to open procedure due to adhesive disease between cyst and bowel/side wall. Procedure otherwise a LSO which was uncomplicated. She did well post op. Discharged home on POD#2 - Patient Instructions Diet: Regular Diet as Tolerated Activity: No Lifting Over 10 Pounds Driving: Do Not Drive (While taking narcotics ) Showering/Bathing: May Shower, No Tub Bathing/Swimming Wound/Incision Care: Keep Operative Site/Wound Site Clean and Dry Notify Provider of: Fever, Increased Pain, Swelling and Redness, Drainage, Nausea and/or Vomiting - Discharge Plan Prescriptions/Med Rec: Acetaminophen/oxyCODONE [Percocet 325-5 MG] 2 tab PO Q4H PRN #20 tablet PRN Reason: Pain (Moderate 4-6) Home Medications: Home Meds Vit W-Ca,Fe,FA(<1 mg) [ Vitamins] 1 tab PO DAILY 12/30/17 [ History] Acetaminophen/oxyCODONE [Percocet 325-5 MG] 2 tab PO Q4H PRN #20 tablet [Rx] Docusate Sodium [Colace] 100 mg PO BID cap 12/31/17 [Rx] Ibuprofen [IJD: Ibuprofen] 600 mg PO Q6H PRN tablet 12/31/17 [Rx] Referrals: Peggy Romero MD [Physician] - (2 weeks for incision check ) - Discharge Summary/Plan Comment DC Time >30 min.: No - Patient Data Vitals - Most Recent: Last Vital Signs Temp 36.7 C 01/01/18 06:28 Pulse 80 01/01/18 06:28 Resp 16 01/01/18 06:28 BP 102/54 L 01/01/18 06:28 Pulse Ox 97 01/01/18 06:28 Weight - Most Recent: 61.32 kg I&O - Last 24 hours: Intake & Output 12/31/17 01/01/18 01/01/18 22:59 06:59 14:59 Intake Total 850 800 Output Total 300 850 Balance 550 -50 Med Orders - Current: Current Medications Docusate Sodium (Colace) 100 mg PO BID MELISSA Last Admin: 12/31/17 22:45 Dose: 100 mg Ibuprofen (Motrin) 600 mg PO Q6H PRN PRN Reason: Pain Last Admin: 01/01/18 08:02 Dose: 600 mg Meperidine HCl (Demerol) 12.5 mg IVPUSH ONETIME PRN PRN Reason: Shivering Ondansetron HCl (Zofran) 4 mg IVPUSH Q6H PRN PRN Reason: Nausea/Vomiting Last Admin: 12/30/17 20:57 Dose: 4 mg Oxycodone/Acetaminophen (Percocet 325-5 Mg) 2 tab PO Q4H PRN PRN Reason: Pain (moderate 4-6) Last Admin: 01/01/18 06:33 Dose: 2 tab Discontinued Medications Bupivacaine HCl (Marcaine 0.5%) Confirm Administered Dose 30 ml .ROUTE .STK-MED ONE Stop: 12/30/17 12:11 Last Admin: 12/30/17 13:59 Dose: 8 ml Cefazolin Sodium (Ancef) Confirm Administered Dose 1 gm .ROUTE .STK-MED ONE Stop: 12/30/17 13:51 Cefazolin Sodium (Ancef) Confirm Administered Dose 1 gm .ROUTE .STK-MED ONE Stop: 12/30/17 13:51 Cefazolin Sodium (Ancef) Confirm Administered Dose 2 gm .ROUTE .STK-MED ONE Stop: 12/30/17 15:13 Dexamethasone (Dexamethasone) Confirm Administered Dose 20 mg .ROUTE .STK-MED ONE Stop: 12/30/17 15:34 Diphenhydramine HCl (Benadryl) 25 mg IVPUSH Q6H PRN PRN Reason: pruritis Stop: 12/30/17 18:00 Fentanyl (Sublimaze) Confirm Administered Dose 250 mcg .ROUTE .STK-MED ONE Stop: 12/30/17 12:10 Fentanyl (Sublimaze) 50 mcg IVPUSH Q5M PRN PRN Reason: Pain Stop: 12/30/17 18:00 Last Admin: 12/30/17 17:00 Dose: 50 mcg Fentanyl (Sublimaze) Confirm Administered Dose 100 mcg .ROUTE .STK-MED ONE Stop: 12/30/17 14:07 Fentanyl (Sublimaze) Confirm Administered Dose 100 mcg .ROUTE .STK-MED ONE Stop: 12/30/17 14:32 Glycopyrrolate () Confirm Administered Dose 1 mg .ROUTE .STK-MED ONE Stop: 12/30/17 16:01 Hydromorphone HCl (Dilaudid) 0.5 mg IVPUSH ONETIME ONE Stop: 12/30/17 14:16 Last Admin: 12/30/17 18:50 Dose: Not Given Hydromorphone HCl (Dilaudid) Confirm Administered Dose 0.5 mg .ROUTE .STK-MED ONE Stop: 12/30/17 13:52 Hydromorphone HCl (Dilaudid) Confirm Administered Dose 0.5 mg .ROUTE .STK-MED ONE Stop: 12/30/17 16:07 Hydromorphone HCl (Dilaudid) Confirm Administered Dose 0.5 mg .ROUTE .STK-MED ONE Stop: 12/30/17 16:17 Lactated Ringer's (Ringers, Lactated) 1,000 mls @ 125 mls/hr IV ASDIRECTED MELISSA Stop: 12/30/17 23:00 Last Admin: 12/30/17 12:20 Dose: 125 mls/hr Cefazolin Sodium/Dextrose 2 gm (/ Premix) 50 mls @ 100 mls/hr IV Q6H [facility], [facility]1983 Stop: 12/31/17 08:29 Last Admin: 12/31/17 09:26 Dose: 100 mls/hr Lactated Ringer's (Ringers, Lactated) 1,000 mls @ 75 mls/hr IV ASDIRECTED MELISSA Last Admin: 12/30/17 19:00 Dose: 50 mls/hr Ketorolac Tromethamine (Toradol) Confirm Administered Dose 30 mg .ROUTE .STK- MED ONE Stop: 12/30/17 13:51 Ketorolac Tromethamine (Toradol) 30 mg IVPUSH Q8H [facility], [facility]1983 Stop: 12/31/17 09:01 Last Admin: 12/31/17 09:24 Dose: 30 mg Lidocaine/Sodium Bicarbonate (Buffered Lidocaine 1% In Ns 8.4%) 0.25 ml IDERM ONETIME PRN PRN Reason: Prior to IV Start Stop: 12/30/17 18:00 Last Admin: 12/30/17 12:19 Dose: 0.25 ml Meperidine HCl (Demerol) 12.5 mg IVPUSH ASDIRECTED PRN PRN Reason: Shivering Stop: 12/30/17 18:00 Midazolam HCl (Versed 1 Mg/Ml) Confirm Administered Dose 2 mg .ROUTE .STK-MED ONE Stop: 12/30/17 12:11 Neostigmine Methylsulfate (Neostigmine) Confirm Administered Dose 5 mg .ROUTE .STK-MED ONE Stop: 12/30/17 16:01 Ondansetron HCl (Zofran) 4 mg IVPUSH ONETIME PRN PRN Reason: Nausea/Vomiting Stop: 12/30/17 18:00 Ondansetron HCl (Zofran) Confirm Administered Dose 4 mg .ROUTE .STK-MED ONE Stop: 12/30/17 13:51 Polyethylene Glycol (Miralax) 17 gm PO ONETIME ONE Stop: 01/01/18 07:51 Last Admin: 01/01/18 08:04 Dose: 17 gm Propofol (Diprivan 20 Ml) Confirm Administered Dose 200 mg .ROUTE .STK-MED ONE Stop: 12/30/17 12:08 Propofol (Diprivan 20 Ml) Confirm Administered Dose 200 mg .ROUTE .STK-MED ONE Stop: 12/30/17 15:33 Rocuronium Millen (Zemuron) Confirm Administered Dose 50 mg .ROUTE .STK-MED ONE Stop: 12/30/17 12:10 Rocuronium Millen (Zemuron) Confirm Administered Dose 50 mg .ROUTE .STK-MED ONE Stop: 12/30/17 15:06 Sodium Chloride (Saline Flush) 10 ml FLUSH ASDIRECTED PRN PRN Reason: Keep Vein Open Stop: 12/30/17 18:00
[2018-01-01] MEDS: Docusate Sodium 100 MG Cap PO SCH (10:59)
[2018-01-01 11:24] VITALS: BP 107/74
== END 2018-01-01 13:14 | disposition home or self-care (01) | DRG 513 ==
LOC: JD.SDS 11:52 → JD.MS 16:32
PROVIDERS: ADMIT Obstetrics & Gynecology; ATTEND Obstetrics & Gynecology
PROC: 0UT10ZZ Resection of Left Ovary, Open Approach (ICD-10-PCS; principal; 2017-12-30)
PROC: 0UT60ZZ Resection of Left Fallopian Tube, Open Approach (ICD-10-PCS; principal; 2017-12-30)
PROC: 0DNW0ZZ Release Peritoneum, Open Approach (ICD-10-PCS; principal; 2017-12-30)
PROC: 0UJ34ZZ Inspection of Ovary, Percutaneous Endoscopic Approach (ICD-10-PCS; principal; 2017-12-30)
DX: N83.202 Unspecified ovarian cyst, left side (principal); K66.0 Peritoneal adhesions (postprocedural) (postinfection); N80.9 Endometriosis, unspecified; Q85.00 Neurofibromatosis, unspecified; D64.9 Anemia, unspecified; H54.7 Unspecified visual loss; I34.1 Nonrheumatic mitral (valve) prolapse; G43.909 Migraine, unspecified, not intractable, without status migrainosus; Z98.891 History of uterine scar from previous surgery; Z88.0 Allergy status to penicillin; Z88.1 Allergy status to other antibiotic agents; Z91.041 Radiographic dye allergy status; Z79.899 Other long term (current) drug therapy
CPT/HCPCS: 36415; 80048; 81025; 85025; 85027; 86850; 86900; 86901; A9270-GY; J0690; J1100; J1170; J1885; J2250; J2405; J2704; J2710; J3010; J7120

== ENCOUNTER 2020-01-03 17:51 | Emergency (ER) | payer MEDICAID ==
[2020-01-03] MEDS ORDERED: Diphtheria,Pertussis(Acell),Tetanus Vaccine 0.5 ML Syringe IM ONE (18:17)
[2020-01-03 18:19] VITALS: BP 123/79; PULSE 76
--- NOTE | 2020-01-03 18:21 | EDM.PDOC ---
ED HPI GENERAL MEDICAL PROBLEM - General Chief Complaint: Laceration Stated Complaint: THUMB LAC Time Seen by Provider: 01/03/20 18:12 Source of Information: Reports: Patient History Limitations: Reports: No Limitations - History of Present Illness INITIAL COMMENTS - FREE TEXT/NARRATIVE: Patient is a 44-year-old female who presents with complaints of a a laceration to her left thumb. States she was cutting carrots and it rolled away causing her to cut her thumb. She thinks that her Tdap is current through 2020. - Related Data Allergies Allergy/AdvReac Type Severity Reaction Status Date / Time Iodinated Contrast Media Allergy Severe Anaphylactic Verified 03/19/19 19:49 [Iodinated Contrast Media - Shock IV Dye] azithromycin Allergy Intermediate Rash Verified 03/19/19 19:49 ciprofloxacin [From Cipro] Allergy Intermediate Hives Verified 03/19/19 19:49 ciprofloxacin HCl Allergy Intermediate Hives Verified 03/19/19 19:49 [From Cipro] erythromycin lactobionate Allergy Intermediate Rash Verified 03/19/19 19:49 [From Erythrocin] Penicillins Allergy Intermediate Rash Verified 03/19/19 19:49 Home Meds: Home Meds Apixaban [Eliquis] 5 mg PO DAILY 03/19/19 [History] medroxyPROGESTERone [Provera] 10 mg PO Q12H #9 tab 03/19/19 [Rx] miSOPROStoL [Cytotec] 200 mcg PO Q6H #19 tablet 03/19/19 [Rx] Past Medical History - Past Health History Medical/Surgical History: Denies Medical/Surgical History HEENT History: Reports: Impaired Vision Other HEENT History: wears contacts and glasses Cardiovascular History: Reports: Heart Murmur, Other (See Below) Other Cardiovascular History: Mitral valve prolapse Respiratory History: Reports: None Gastrointestinal History: Reports: None, Hemorrhoids Genitourinary History: Reports: None 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: 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, , Other (See Below) 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 ROTO ROOTER OPERATOR History: ;ovarian cysts Musculoskeletal History: Reports: None Neurological History: Reports: Migraines Other Neuro History: migraines Psychiatric History: Reports: None Endocrine/Metabolic History: Reports: None Hematologic History: Reports: None Immunologic History: Reports: None Oncologic (Cancer) History: Reports: None Dermatologic History: Reports: None - Infectious Disease History Infectious Disease History: Reports: Influenza - Past Surgical History Head Surgeries/Procedures: Reports: None HEENT Surgical History: Reports: None, Adenoidectomy, Tonsillectomy Cardiovascular Surgical History: Reports: Other (See Below) Other Cardiovascular Surgeries/Procedures: mitral valve GI Surgical History: Reports: Appendectomy, Colonoscopy Other GI Surgeries/Procedures: hemorrhoid banding Female Surgical History: Reports: Section, Salpingo-Oophorectomy, Other (See Below) Other Female Surgeries/Procedures: left side Social & Family History - Family History Family Medical History: Noncontributory Neurological: Reports: Other (See Below) Other Neurological Family History: neurofibromatosis - father & brother Endocrine/Metabolic: Reports: Diabetes, type II Other Oncologic Family History: several cancers in dad's side of family - Caffeine Use Caffeine Use: Reports: Coffee Other Caffeine Use: daily ED ROS GENERAL - Review of Systems Review Of Systems: Comprehensive ROS is negative, except as noted in HPI. ED EXAM, SKIN/RASH Exam: See Below Exam Limited By: No Limitations General Appearance: Alert, WD/WN, No Apparent Distress Respiratory/Chest: No Respiratory Distress, Lungs Clear, Normal Breath Sounds, No Accessory Muscle Use, Chest Non-Tender Cardiovascular: Normal Peripheral Pulses, Regular Rate, Rhythm, No Edema, No Gallop, No JVD, No Murmur, No Rub Neurological: Alert, Oriented, CN II-XII Intact, Normal Cognition, Normal Gait, Normal Reflexes, No Motor/Sensory Deficits Psychiatric: Normal Affect, Normal Mood Skin: Other (1 cm superficial V-shaped laceration to the medial aspect of the left thumb. Scant bleeding present.) ED SKIN PROCEDURES - Laceration/Wound Repair Left Medial Digit - 1st (Thumb) Appearance: Superficial Skin Prep: Chlorhexidine (Hibiciens), Saline Exploration/Debridement/Repair: Wound Explored, No Foreign Material Found Closed with: Dermabond Lac/Wound length In cm: 1 Sterile Dressing Applied: Nurse Tetanus Status Addressed: Yes Complications: Yes Course - Vital Signs Last Recorded V/S: Last Vital Signs Temp 97.9 F 01/03/20 18:15 Pulse 76 01/03/20 18:15 Resp 20 01/03/20 18:15 BP 123/79 01/03/20 18:15 Pulse Ox 100 01/03/20 18:15 - Orders/Labs/Meds Orders: Active Orders 24 hr Category Date Time Status Vaccines to be Administered [RC] PER UNIT ROUTINE Care 01/03/20 18:17 Active Meds: Medications Discontinued Medications Generic Name Dose Route Start Last Admin Trade Name Ludmila PRN Reason Stop Dose Admin Diphtheria/Tetanus/Acell Pertussis 0.5 ml 01/03/20 18:17 01/03/20 18:41 Adacel IM 01/03/20 18:18 0.5 ml .ONCE ONE Administration Departure - Departure Time of Disposition: 18:20 Disposition: Home, Self-Care 01 Condition: Good Clinical Impression: Laceration - Discharge Information *PRESCRIPTION DRUG MONITORING PROGRAM REVIEWED*: No *COPY OF PRESCRIPTION DRUG MONITORING REPORT IN PATIENT SEN: No Instructions: Laceration Care, Adult, [id number], Sutures, [place], or Adhesive Wound Closure, [id number] Referrals: Vicki Torres MD [Primary Care Provider] - Forms: ED Department Discharge Additional Instructions: You were seen in the emergency department today for a laceration to your left thumb. The wound was cleansed and closed with Dermabond wound adhesive. A Band -Aid was applied. Recommend that you keep the wound covered for the next 48 hours to prevent the adhesive from coming off prematurely. After that time you may leave it open to air. The glue will gradually peel off. Do not pick at the adhesive as this will will possibly open the wound back up. Watch for signs of infection including increased redness, swelling, or purulent drainage. If these should occur, please follow-up in the clinic or return to the ER as needed. You did receive a tetanus vaccination today, you are up-to-date for the next 10 years. Sepsis Event Note - Focused Exam Vital Signs: Vital Signs Temp Pulse Resp BP Pulse Ox 01/03/20 18:15 97.9 F 76 20 123/79 100 Date Exam was Performed: 01/03/20 Time Exam was Performed: 21:05 - My Orders Last 24 Hours: My Active Orders 01/03/20 18:17 Vaccines to be Administered [RC] PER UNIT ROUTINE - Assessment/Plan Last 24 Hours: My Active Orders 01/03/20 18:17 Vaccines to be Administered [RC] PER UNIT ROUTINE
== END 2020-01-03 18:50 | disposition home or self-care (01) ==
LOC: JD.ED 17:51
DX: S61.012A Laceration without foreign body of left thumb without damage to nail, initial encounter (principal); Z23 Encounter for immunization; Z91.041 Radiographic dye allergy status; Z88.1 Allergy status to other antibiotic agents; Z88.0 Allergy status to penicillin; Z79.01 Long term (current) use of anticoagulants; W26.0XXA Contact with knife, initial encounter
CPT/HCPCS: 12001; 90471; 90715; 99282

== ENCOUNTER 2020-06-19 17:46 | Emergency (ER) | payer MEDICAID ==
[2020-06-19 18:06] VITALS: BP 107/66; PULSE 84
--- NOTE | 2020-06-19 18:28 | EDM.PDOC ---
ED HPI GENERAL MEDICAL PROBLEM - General Chief Complaint: Lower Extremity Injury/Pain Stated Complaint: POSSIBLE BLOOD CLOT IN LEG Time Seen by Provider: 06/19/20 18:14 Source of Information: Reports: Patient, RN Notes Reviewed History Limitations: Reports: No Limitations - History of Present Illness INITIAL COMMENTS - FREE TEXT/NARRATIVE: Patient is a 44-year-old female who presents to the ED for the evaluation of a possible blood clot in her left lower leg. Patient notes for the last 4 or 5 days, she has been having some pain in her medial calf, with some swelling at times. She notes the pain is a worse when she goes up and down stairs, and when she plantar flexes her foot. She has a history of a blood clot about 2 years ago in the same leg. She was placed on Xarelto at that time, completed her course, and continued aspirin. She states however for the last week or so, she stopped taking her aspirin as she heard you should not be on aspirin due to COVID-19. She is not complaining of any other sick-like symptoms, fever/chills, cough/shortness of breath, nausea/vomiting/diarrhea. She has no numbness or tingling into the foot, and can wiggle her toes in all range of motion. She states that the pain was somewhat like a charley horse, and seemed to get better after she started getting up and moving around for the day. This is worse in the morning. Left Lower Leg Pain Score (Numeric/FACES): 4 - Related Data Allergies Allergy/AdvReac Type Severity Reaction Status Date / Time azithromycin Allergy Severe Rash Verified 06/19/20 18:01 ciprofloxacin [From Cipro] Allergy Severe Hives Verified 06/19/20 18:01 ciprofloxacin HCl Allergy Severe Hives Verified 06/19/20 18:01 [From Cipro] erythromycin lactobionate Allergy Severe Rash Verified 06/19/20 18:01 [From Erythrocin] Iodinated Contrast Media Allergy Severe Anaphylactic Verified 03/19/19 19:49 [Iodinated Contrast Media - Shock IV Dye] Penicillins Allergy Severe Rash Verified 06/19/20 18:01 Home Meds: Home Meds Rivaroxaban [Xarelto] 15 mg PO BID 21 Days #42 tab 06/19/20 [Rx] Past Medical History - Past Health History Medical/Surgical History: Denies Medical/Surgical History HEENT History: Reports: Impaired Vision Other HEENT History: wears contacts and glasses Cardiovascular History: Reports: Heart Murmur, Other (See Below) Other Cardiovascular History: Mitral valve prolapse Respiratory History: Reports: None Gastrointestinal History: Reports: None, Hemorrhoids Genitourinary History: Reports: None 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: Reports: 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, , Other (See Below) 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: ;ovarian cysts Musculoskeletal History: Reports: None Neurological History: Reports: Migraines Other Neuro History: migraines Psychiatric History: Reports: None Endocrine/Metabolic History: Reports: None Hematologic History: Reports: None Immunologic History: Reports: None Oncologic (Cancer) History: Reports: None Dermatologic History: Reports: None - Infectious Disease History Infectious Disease History: Reports: Influenza - Past Surgical History Head Surgeries/Procedures: Reports: None HEENT Surgical History: Reports: None, Adenoidectomy, Tonsillectomy Cardiovascular Surgical History: Reports: Other (See Below) Other Cardiovascular Surgeries/Procedures: mitral valve GI Surgical History: Reports: Appendectomy, Colonoscopy Other GI Surgeries/Procedures: hemorrhoid banding Female Surgical History: Reports: Section, Salpingo-Oophorectomy, Other (See Below) Other Female Surgeries/Procedures: left side Social & Family History - Family History Family Medical History: Noncontributory Neurological: Reports: Other (See Below) Other Neurological Family History: neurofibromatosis - father & brother Endocrine/Metabolic: Reports: Diabetes, type II Other Oncologic Family History: several cancers in dad's side of family - Tobacco Use Smoking Status *Q: Never Smoker - Caffeine Use Caffeine Use: Reports: Coffee Other Caffeine Use: daily - Recreational Drug Use Recreational Drug Use: No Review of Systems - Review of Systems Review Of Systems: Comprehensive ROS is negative, except as noted in HPI. ED EXAM, GENERAL - Physical Exam Exam: See Below Exam Limited By: No Limitations General Appearance: Alert, WD/WN, No Apparent Distress Respiratory/Chest: No Respiratory Distress, Lungs Clear, Normal Breath Sounds, No Accessory Muscle Use, Chest Non-Tender Cardiovascular: Normal Peripheral Pulses, Regular Rate, Rhythm, No Murmur Peripheral Pulses: 2+: Dorsalis Pedis (L), Dorsalis Pedis (R) Extremities: Normal Inspection, Normal Range of Motion, Non-Tender, No Pedal Edema, Normal Capillary Refill Neurological: Alert, Oriented, Normal Cognition, No Motor/Sensory Deficits Psychiatric: Normal Affect, Normal Mood Skin Exam: Warm, Dry, Intact, Normal Color, No Rash Course - Vital Signs Last Recorded V/S: Last Vital Signs Temp 98.4 F 06/19/20 18:03 Pulse 84 06/19/20 18:03 Resp 20 06/19/20 18:03 BP 107/66 06/19/20 18:03 Pulse Ox 97 06/19/20 18:03 - Orders/Labs/Meds Orders: Active Orders 24 hr Category Date Time Status VL Duplex Lwr Ext Veins Ltd Lt [US] Stat Exams 06/19/20 18:22 Ordered - Re-Assessments/Exams Free Text/Narrative Re-Assessment/Exam: 06/19/20 18:27 Patient presents to the ED for evaluation of her left lower leg issue. Have ordered ultrasound of the lower leg to evaluate for blood clot at this time. 06/19/20 19:50 Ultrasound demonstrates areas in the posterior tibial veins that are suspect for DVT. Patient be placed on Xarelto, and she will have to follow-up with her regular care provider for continuation of this medication after the first 3 weeks are done. Departure - Departure Time of Disposition: 19:51 Disposition: Home, Self-Care 01 Condition: Good Clinical Impression: Deep vein thrombosis (DVT) of left lower extremity Qualifiers: Affected thrombotic vein of extremity: tibial Chronicity: acute Qualified Code(s): I82.442 - Acute embolism and thrombosis of left tibial vein - Discharge Information *PRESCRIPTION DRUG MONITORING PROGRAM REVIEWED*: No *COPY OF PRESCRIPTION DRUG MONITORING REPORT IN PATIENT SEN: No Prescriptions: Rivaroxaban [Xarelto] 15 mg PO BID 21 Days #42 tab Instructions: Bleeding Precautions When on Anticoagulant Therapy, Adult, Deep Vein Thrombosis Referrals: Vicki Torres MD [Primary Care Provider] - Forms: ED Department Discharge Additional Instructions: You were evaluated in the ER today for your possible blood clot in your left lower leg. An ultrasound was performed, and there is an area that is suspicious for a DVT in your left lower leg. You have been started on medication called Xarelto, you will need to take 1 tablet 2 times a day for the next 21 days. You will need to continue anticoagulant therapy at 20 mg tablets once daily after the 3 weeks. You will need to get this second prescription or the 20 mg tablets from your primary care provider for continuation of therapy. You have only been provided with medication for the first 3 weeks. This medication was electronically prescribed to the [place] [facility]. Please follow-up with your care provider, sometime within the next week or so, for reevaluation and to make sure that your symptoms are getting better as expected. Please return to the ER at any time however if your symptoms change or worsen. Sepsis Event Note (ED) - Evaluation Sepsis Screening Result: No Definite Risk - Focused Exam Vital Signs: Vital Signs Temp Pulse Resp BP Pulse Ox 06/19/20 18:03 98.4 F 84 20 107/66 97 - My Orders Last 24 Hours: My Active Orders 06/19/20 18:22 VL Duplex Lwr Ext Veins Ltd Lt [US] Stat - Assessment/Plan Last 24 Hours: My Active Orders 06/19/20 18:22 VL Duplex Lwr Ext Veins Ltd Lt [US] Stat
--- NOTE | 2020-07-21 10:36 | US ---
PROCEDURE INFORMATION: Exam: US Duplex Left Lower Extremity Veins, Limited Exam date and time: 06/19/2020 6:52 PM Age: 44 years old Clinical indication: Pain; Leg, lower; Patient HX: Previous left lower extremity clot per patient TECHNIQUE: Imaging protocol: Real-time Duplex ultrasound of the Left Lower Extremity with 2-D wasserman scale, color Doppler flow and spectral waveform analysis with image documentation. Limited exam focused on the left lower extremity veins. COMPARISON: No relevant prior studies available. FINDINGS: Left deep veins: The common femoral, femoral, proximal profunda femoral and popliteal veins are patent without thrombus. Normal Doppler waveforms. Normal compressibility and/or augmentation response. One of the 2 paired posterior tibial veins shows absence of flow on Doppler waveform and color imaging within a lower segment. Left superficial veins: Unremarkable. Saphenofemoral junction is patent without thrombus. Soft tissues: Unremarkable. IMPRESSION: 1. No evidence of deep vein thrombosis above the knee. 2. Deep venous thrombosis of lower portion of 1 of the 2 posterior tibial veins. Thank you for allowing us to participate in the care of your patient. Dictated and Authenticated by: Triston Echavarria MD 07/14/2020 3:26 PM Central Time ([place] & [place]) [employer]
== END 2020-06-19 20:00 | disposition home or self-care (01) ==
LOC: JD.ED 17:46
DX: I82.442 Acute embolism and thrombosis of left tibial vein (principal); Z88.1 Allergy status to other antibiotic agents; Z91.041 Radiographic dye allergy status; Z88.0 Allergy status to penicillin; Z79.01 Long term (current) use of anticoagulants
CPT/HCPCS: 93971-26-LT; 93971-LT; 99283; 99283-25

== ENCOUNTER 2020-09-01 19:58 | Emergency (ER) | payer MEDICAID ==
--- NOTE | 2020-09-01 20:08 | EDM.PDOC ---
ED HPI GENERAL MEDICAL PROBLEM - General Chief Complaint: ENT Problem Stated Complaint: TOOTH PAIN Time Seen by Provider: 09/01/20 20:08 - History of Present Illness INITIAL COMMENTS - FREE TEXT/NARRATIVE: 44-year-old female presents the emergency room with dental pain. Patient was seen in the walk-in clinic they started on clindamycin told her to use Tylenol for pain. Tylenol is not working. Patient cannot use ibuprofen or nonsteroidals because she is on Xarelto for a blood clot in her leg. Patient denies any fevers or chills and is otherwise doing okay Tooth/Teeth Pain Score (Numeric/FACES): 10 - Related Data Allergies Allergy/AdvReac Type Severity Reaction Status Date / Time azithromycin Allergy Severe Rash Verified 06/19/20 18:01 ciprofloxacin [From Cipro] Allergy Severe Hives Verified 06/19/20 18:01 ciprofloxacin HCl Allergy Severe Hives Verified 06/19/20 18:01 [From Cipro] erythromycin lactobionate Allergy Severe Rash Verified 06/19/20 18:01 [From Erythrocin] Iodinated Contrast Media Allergy Severe Anaphylactic Verified 03/19/19 19:49 [Iodinated Contrast Media - Shock IV Dye] Penicillins Allergy Severe Rash Verified 06/19/20 18:01 Home Meds: Home Meds Rivaroxaban [Xarelto] 15 mg PO BID 21 Days #42 tab 06/19/20 [Rx] Acetaminophen/HYDROcodone [Red Bud 325-5 MG] 1 tab PO Q4H PRN #10 tablet 09/01/20 [Rx] Clindamycin HCl 300 mg PO TID 09/01/20 [History] Ferrous Sulfate [Slow Fe] 50 mg PO DAILY 09/01/20 [History] Past Medical History - Past Health History Medical/Surgical History: Denies Medical/Surgical History HEENT History: Reports: Impaired Vision Other HEENT History: wears contacts and glasses Cardiovascular History: Reports: Heart Murmur, Other (See Below) Other Cardiovascular History: Mitral valve prolapse Respiratory History: Reports: None Gastrointestinal History: Reports: None, Hemorrhoids Genitourinary History: Reports: None 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: 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, , Other (See Below) 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: ;ovarian cysts Musculoskeletal History: Reports: None Neurological History: Reports: Migraines Other Neuro History: migraines Psychiatric History: Reports: None Endocrine/Metabolic History: Reports: None Hematologic History: Reports: None Immunologic History: Reports: None Oncologic (Cancer) History: Reports: None Dermatologic History: Reports: None - Infectious Disease History Infectious Disease History: Reports: Influenza - Past Surgical History Head Surgeries/Procedures: Reports: None HEENT Surgical History: Reports: None, Adenoidectomy, Tonsillectomy Cardiovascular Surgical History: Reports: Other (See Below) Other Cardiovascular Surgeries/Procedures: mitral valve GI Surgical History: Reports: Appendectomy, Colonoscopy Other GI Surgeries/Procedures: hemorrhoid banding Female Surgical History: Reports: Section, Salpingo-Oophorectomy, Other (See Below) Other Female Surgeries/Procedures: left side Social & Family History - Family History Family Medical History: No Pertinent Family History Neurological: Reports: Other (See Below) Other Neurological Family History: neurofibromatosis - father & brother Endocrine/Metabolic: Reports: Diabetes, type II Other Oncologic Family History: several cancers in dad's side of family - Caffeine Use Caffeine Use: Reports: Coffee Other Caffeine Use: daily ED ROS ENT - Review of Systems Review Of Systems: See Below Constitutional: Reports: No Symptoms HEENT: Reports: Dental Pain Respiratory: Reports: No Symptoms Cardiovascular: Reports: No Symptoms GI/Abdominal: Reports: No Symptoms ED EXAM, ENT - Physical Exam Exam: See Below Exam Limited By: No Limitations Ears: Normal External Exam, Normal Canal, Hearing Grossly Normal, Normal TMs Nose: Normal Inspection, Normal Mucousa, No Blood Mouth/Throat: Normal Inspection, Normal Gums, Normal Oropharynx, Dental Pain, Dental Tenderness, Other (Mild swelling and redness around affected teeth). No: Dental Abcess Head: Atraumatic, Normocephalic Neck: Normal Inspection. No: Lymphadenopathy (L), Lymphadenopathy (R) Course - Vital Signs Last Recorded V/S: Last Vital Signs Temp 36.8 C 09/01/20 20:09 Pulse 84 09/01/20 20:09 Resp 20 09/01/20 20:09 BP 131/86 09/01/20 20:09 Pulse Ox 99 09/01/20 20:09 Departure - Departure Time of Disposition: 20:23 Disposition: Home, Self-Care 01 Clinical Impression: Pain, dental - Discharge Information Referrals: Vicki Torres MD [Primary Care Provider] - Forms: ED Department Discharge Additional Instructions: Return to the emergency room with any questions problems or worsening symptoms. Follow-up with a dentist as soon as you can. I given you a few pain pills use only as needed. Take 1 every 4 hours to help but allow 12 hours after using this medication before driving or returning to work Sepsis Event Note (ED) - Focused Exam Vital Signs: Vital Signs Temp Pulse Resp BP Pulse Ox 09/01/20 20:09 36.8 C 84 20 131/86 99
[2020-09-01 20:10] VITALS: BP 131/86; PULSE 84
== END 2020-09-01 20:38 | disposition home or self-care (01) ==
LOC: JD.ED 19:58
DX: K08.89 Other specified disorders of teeth and supporting structures (principal); Z88.1 Allergy status to other antibiotic agents; Z91.041 Radiographic dye allergy status; Z88.0 Allergy status to penicillin; Z79.01 Long term (current) use of anticoagulants
CPT/HCPCS: 99282

== ENCOUNTER 2020-11-09 10:41 | Emergency (ER) | payer MEDICAID ==
[2020-11-09] MEDS ORDERED: Sodium Chloride 0.9% 10 ML Syringe FLUSH PRN (11:20)
--- NOTE | 2020-11-09 12:21 | EDM.PDOC ---
ED HPI GENERAL MEDICAL PROBLEM - General Chief Complaint: Genitourinary Problem Stated Complaint: VAGINAL BLEEDING X2WEEK Time Seen by Provider: 11/09/20 11:06 Source of Information: Reports: Patient History Limitations: Reports: No Limitations - History of Present Illness INITIAL COMMENTS - FREE TEXT/NARRATIVE: 44-year-old female presents to the emergency department today with complaints of heavy vaginal bleeding. Patient states she started her period on October 24 and bleeding was fairly normal however it has not stopped and on which was 3 days ago she started passing large clots which she states are approximately the size of a golf ball. She states that she is passing numerous clots per day, too numerous to count. And she has been going through 1 pad abiel ry hour since . She currently is taking Xarelto due to having a blood clot in her right leg. This was initiated back in June. Patient's primary care physician, Dr. León, suggested to the patient that she may require Xarelto for the rest of her life as she has a history of a blood clot in her leg approximately a year prior. Patient states up until now her periods have been regular coming every 28 to 32 days and lasting for 5 to 7 days at a time. She denies any lightheaded, blurred vision or dizziness associated with the heavy vaginal bleeding. She states that she has normal menstrual cramping. She denies any issues with voiding or bowel. The patient's ANGLE FURNACEMAN is Dr. Romero. Lower Abdomen Pain Score (Numeric/FACES): 3 - Related Data Allergies Allergy/AdvReac Type Severity Reaction Status Date / Time azithromycin Allergy Severe Rash Verified 11/09/20 10:53 ciprofloxacin [From Cipro] Allergy Severe Hives Verified 11/09/20 10:53 ciprofloxacin HCl Allergy Severe Hives Verified 11/09/20 10:53 [From Cipro] erythromycin lactobionate Allergy Severe Rash Verified 11/09/20 10:53 [From Erythrocin] Iodinated Contrast Media Allergy Severe Anaphylactic Verified 11/09/20 10:53 [Iodinated Contrast Media - Shock IV Dye] Penicillins Allergy Severe Rash Verified 11/09/20 10:53 Home Meds: Home Meds Ferrous Sulfate [Slow Fe] 50 mg PO DAILY 09/01/20 [History] Rivaroxaban [Xarelto] 20 mg PO DAILY 11/09/20 [History] medroxyPROGESTERone [Provera] 10 mg PO BID #10 tab 11/09/20 [Rx] Past Medical History - Past Health History Medical/Surgical History: Denies Medical/Surgical History HEENT History: Reports: Impaired Vision Other HEENT History: wears contacts and glasses Cardiovascular History: Reports: Heart Murmur, Other (See Below) Other Cardiovascular History: Mitral valve prolapse Respiratory History: Reports: None Gastrointestinal History: Reports: Hemorrhoids Genitourinary History: Reports: None ANGLE FURNACEMAN History: Reports: 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, , Other (See Below) Other ANGLE FURNACEMAN History: ;ovarian cysts laparoscopies Musculoskeletal History: Reports: None Neurological History: Reports: Migraines Other Neuro History: migraines Psychiatric History: Reports: None Endocrine/Metabolic History: Reports: None Hematologic History: Reports: Anticoagulation Therapy Immunologic History: Reports: None Oncologic (Cancer) History: Reports: None Dermatologic History: Reports: None - Infectious Disease History Infectious Disease History: Reports: Influenza - Past Surgical History HEENT Surgical History: Reports: Adenoidectomy, Tonsillectomy Cardiovascular Surgical History: Reports: Other (See Below) Other Cardiovascular Surgeries/Procedures: mitral valve GI Surgical History: Reports: Appendectomy, Colonoscopy Other GI Surgeries/Procedures: hemorrhoid banding Female Surgical History: Reports: Section, Salpingo-Oophorectomy, Other (See Below) Other Female Surgeries/Procedures: left side Social & Family History - Family History Family Medical History: No Pertinent Family History Neurological: Reports: Other (See Below) Other Neurological Family History: neurofibromatosis - father & brother Endocrine/Metabolic: Reports: Diabetes, type II Other Oncologic Family History: several cancers in dad's side of family - Tobacco Use Tobacco Use Status *Q: Never Tobacco User - Caffeine Use Caffeine Use: Reports: Coffee Other Caffeine Use: daily - Recreational Drug Use Recreational Drug Use: No ED ROS GENERAL - Review of Systems Review Of Systems: Comprehensive ROS is negative, except as noted in HPI. ED EXAM, RENAL/ - Physical Exam Exam: See Below Exam Limited By: No Limitations General Appearance: Alert, WD/WN, No Apparent Distress Eye Exam: Bilateral Eye: PERRL Ears: Hearing Grossly Normal Nose: Normal Inspection Throat/Mouth: Normal Inspection, Normal Voice, No Airway Compromise Head: Atraumatic, Normocephalic Neck: Normal Inspection, Supple, Non-Tender, Full Range of Motion Respiratory/Chest: No Respiratory Distress, Lungs Clear, Normal Breath Sounds, No Accessory Muscle Use, Chest Non-Tender Cardiovascular: Normal Peripheral Pulses, Regular Rate, Rhythm, No Edema, No Murmur GI/Abdominal: Normal Bowel Sounds, Soft, Non-Tender, No Distention Rectal (Female) Exam: Deferred Back Exam: Normal Inspection, Full Range of Motion Extremities: Normal Inspection, Normal Range of Motion, Non-Tender, No Pedal Edema, Normal Capillary Refill Neurological: Alert, Oriented, Normal Cognition Psychiatric: Normal Affect, Normal Mood Skin Exam: Warm, Dry, Intact, Normal Color, No Rash Lymphatic: No Adenopathy Course - Vital Signs Text/Narrative:: 44-year-old female with heavy left vaginal bleeding that started 24 October. She is currently on day 17 of her period. She states that approximately 4 days ago she began passing golf ball sized blood clots. She states that they are too numerous to count throughout the day and this has been steady for the past 4 days. She states she is using 1 sanitary pad per hour. Currently taking Xarelto for a history of a blood clot in her right leg that was diagnosed in June. She states that her primary care provider, Dr. León, has done a complete workout for any rare clotting disorders, and she states that they all came back unremarkable. They are not finding a cause to why the patient is having issues with blood clots. Patient denies any dizziness, blurred vision, double double vision, chest pain or palpitations associated with the blood loss. She denies any acute abdominal pain, she states she has normal menstrual cramps. She denies any recent fever, chills, nausea, vomiting or diarrhea. I have ordered labs, type and cross, and a transvaginal ultrasound. I have also ordered for a saline lock to be placed. I have not ordered IV fluids at this time as the patient's blood pressure and heart rate are stable. Last Recorded V/S: Last Vital Signs Temp 98.2 F 11/09/20 10:50 Pulse 80 11/09/20 10:50 Resp 16 11/09/20 10:50 BP 134/87 11/09/20 10:50 Pulse Ox 97 11/09/20 10:50 - Orders/Labs/Meds Orders: Active Orders 24 hr Category Date Time Status Sodium Chloride 0.9% [Saline Flush] Med 11/09/20 11:20 Active 10 ml FLUSH ASDIRECTED PRN Saline Lock Insert [OM.PC] Stat Oth 11/09/20 11:20 Ordered Medication Orders Sodium Chloride (Saline Flush) 10 ml FLUSH ASDIRECTED PRN PRN Reason: Keep Vein Open Last Admin: 11/09/20 11:35 Dose: 10 ml Documented by: TIA Labs: Laboratory Tests 11/09/20 11/09/20 11/09/20 Range/Units 11:30 11:30 11:30 WBC 6.33 (3.98-10.04) K/mm3 RBC 4.07 (3.98-5.22) M/mm3 Hgb 10.8 L D (11.2-15.7) gm/dl Hct 34.5 (34.1-44.9) % MCV 84.8 D (79.4-94.8) fl MCH 26.5 (25.6-32.2) pg MCHC 31.3 L (32.2-35.5) g/dl RDW Std Deviation 44.3 (36.4-46.3) fL Plt Count 254 D (182-369) K/mm3 MPV 9.6 (9.4-12.3) fl Neut % (Auto) 67.2 (34.0-71.1) % Lymph % (Auto) 19.3 (19.3-51.7) % [place] % (Auto) 10.6 (4.7-12.5) % Eos % (Auto) 1.9 (0.7-5.8) Baso % (Auto) 0.8 (0.1-1.2) % Neut # (Auto) 4.26 (1.56-6.13) K/mm3 Lymph # (Auto) 1.22 (1.18-3.74) K/mm3 [place]ford # (Auto) 0.67 H (0.24-0.36) K/mm3 Eos # (Auto) 0.12 (0.04-0.36) K/mm3 Baso # (Auto) 0.05 (0.01-0.08) K/mm3 Manual Slide Review Normal smear PT 11.6 (9.7-12.0) SECONDS INR 1.09 APTT 28.7 (21.7-31.4) SECONDS Sodium 141 (136-145) mEq/L Potassium 4.0 (3.5-5.1) mEq/L Chloride 104 (98-107) mEq/L Carbon Dioxide 24 (21-32) mEq/L Anion Gap 17.0 H (5-15) BUN 13 (7-18) mg/dL Creatinine 0.7 (0.55-1.02) mg/dL Est Cr Clr Drug Dosing 81.11 mL/min Estimated GFR (MDRD) > 60 (>60) mL/min BUN/Creatinine Ratio 18.6 H (14-18) Glucose 89 (74-106) mg/dL Calcium 8.5 (8.5-10.1) mg/dL Total Bilirubin 0.3 (0.2-1.0) mg/dL AST 12 L (15-37) U/L ALT 19 (14-59) U/L Alkaline Phosphatase 38 L (46-116) U/L Total Protein 6.9 (6.4-8.2) g/dl Albumin 3.6 (3.4-5.0) g/dl Globulin 3.3 gm/dL Albumin/Globulin Ratio 1.1 (1-2) Blood Type Gel Antibody Screen 11/09/20 Range/Units 11:30 WBC (3.98-10.04) K/mm3 RBC (3.98-5.22) M/mm3 Hgb (11.2-15.7) gm/dl Hct (34.1-44.9) % MCV (79.4-94.8) fl MCH (25.6-32.2) pg MCHC (32.2-35.5) g/dl RDW Std Deviation (36.4-46.3) fL Plt Count (182-369) K/mm3 MPV (9.4-12.3) fl Neut % (Auto) (34.0-71.1) % Lymph % (Auto) (19.3-51.7) % Blackford % (Auto) (4.7-12.5) % Eos % (Auto) (0.7-5.8) Baso % (Auto) (0.1-1.2) % Neut # (Auto) (1.56-6.13) K/mm3 Lymph # (Auto) (1.18-3.74) K/mm3 Blackford # (Auto) (0.24-0.36) K/mm3 Eos # (Auto) (0.04-0.36) K/mm3 Baso # (Auto) (0.01-0.08) K/mm3 Manual Slide Review PT (9.7-12.0) SECONDS INR APTT (21.7-31.4) SECONDS Sodium (136-145) mEq/L Potassium (3.5-5.1) mEq/L Chloride (98-107) mEq/L Carbon Dioxide (21-32) mEq/L Anion Gap (5-15) BUN (7-18) mg/dL Creatinine (0.55-1.02) mg/dL Est Cr Clr Drug Dosing mL/min Estimated GFR (MDRD) (>60) mL/min BUN/Creatinine Ratio (14-18) Glucose (74-106) mg/dL Calcium (8.5-10.1) mg/dL Total Bilirubin (0.2-1.0) mg/dL AST (15-37) U/L ALT (14-59) U/L Alkaline Phosphatase (46-116) U/L Total Protein (6.4-8.2) g/dl Albumin (3.4-5.0) g/dl Globulin gm/dL Albumin/Globulin Ratio (1-2) Blood Type AB POSITIVE Gel Antibody Screen Negative Meds: Medications Generic Name Dose Route Start Last Admin Trade Name Freq PRN Reason Stop Dose Admin Sodium Chloride 10 ml 11/09/20 11:20 11/09/20 11:35 Saline Flush FLUSH 10 ml ASDIRECTED PRN Administration Keep Vein Open - Radiology Interpretation Free Text/Narrative:: Non-OB transvaginal ultrasound radiologist impression: 1. Heterogeneously appe aring endometrium which is slightly thickened at 1.8 cm. 2. Prior left oophorectomy. 3. Small nabothian distal. No additional abnormality is appreciated - Re-Assessments/Exams Free Text/Narrative Re-Assessment/Exam: 11/09/20 13:01 Labs reveal a WBC of 6.33, hemoglobin 10.8, hematocrit 34.5, PT 11.6, INR 1.09, PTT 28.7, anion gap 17.0, BUN 13, creatinine 0.7, AST 12, ALT 19, alk phos 38 11/09/20 13:[address] Lee, the die cleaner bone drier operator, regarding this patient's case. He recommend the patient be prescribed Provera 10 mg twice daily x5 days and then follow-up this week with her color paste mixer Dr. Romero. I did discuss this with the patient and she is agreeable to this plan of care. Departure - Departure Time of Disposition: 13:27 Disposition: Home, Self-Care 01 Condition: Good Clinical Impression: Menorrhagia Qualifiers: Menorrhagia type: with regular cycle Qualified Code(s): N92.0 - Excessive and frequent menstruation with regular cycle - Discharge Information Prescriptions: medroxyPROGESTERone [Provera] 10 mg PO BID #10 tab Referrals: Vicki Torres MD [Primary Care Provider] - Forms: ED Department Discharge Additional Instructions: You were seen in the emergency department today with complaints of heavy vaginal bleeding that started on . Labs were completed today and this revealed that you did have a hemoglobin of 10.4 however you state that you do have chronic anemia for which you have been taking iron supplementation for several years and this is actually a normal value for you. Your vital signs were stable. Vaginal ultrasound was completed. I spoke with Dr. Lee, the ANGLE FURNACEMAN on-call, and he recommended that you take Provera 10 mg twice daily for 5 days. A prescription for this has been sent to [facility]. You will need to follow-up with your ANGLE FURNACEMAN, Dr. Romero sometime this week regarding the vaginal bleeding. Should your condition worsen or change or you feel shortness of breath, dizzy, you have chest pain or the bleeding become significantly worse, do not hesitate to turn to the emergency department. Sepsis Event Note (ED) - Evaluation Sepsis Screening Result: No Definite Risk - Focused Exam Vital Signs: Vital Signs Temp Pulse Resp BP Pulse Ox 11/09/20 10:50 98.2 F 80 16 134/87 97 - My Orders Last 24 Hours: My Active Orders 11/09/20 11:20 Sodium Chloride 0.9% [Saline Flush] 10 ml FLUSH ASDIRECTED PRN Saline Lock Insert [OM.PC] Stat - Assessment/Plan Last 24 Hours: My Active Orders 11/09/20 11:20 Sodium Chloride 0.9% [Saline Flush] 10 ml FLUSH ASDIRECTED PRN Saline Lock Insert [OM.PC] Stat
--- NOTE | 2020-11-09 13:05 | US ---
Pelvic ultrasound: Multiple real-time images were obtained transvaginally. Comparison: No prior pelvic imaging is available. Uterus is anteverted. Endometrial thickness is heterogeneous and measures up to 1.8 cm which is slightly abnormal. No discrete myometrial abnormality is identified. Small nabothian cyst appears to be present. Right ovary shows follicles. Left ovary is removed. No free fluid is seen. Measurements: Uterus: Length 8.3 cm, AP height 3.8 cm, transverse width 4.3 cm Right ovary: 3.6 x 2.2 x 3.6 cm Impression: 1. Heterogeneously appearing endometrium which is slightly thickened at 1.8 cm. 2. Prior left oophorectomy. 3. Small nabothian cyst. No additional abnormality is appreciated. Diagnostic code #3
[2020-11-09 13:52] VITALS: BP 110/72; PULSE 70
== END 2020-11-09 13:52 | disposition home or self-care (01) ==
LOC: JD.ED 10:41
DX: N92.0 Excessive and frequent menstruation with regular cycle (principal); Z79.01 Long term (current) use of anticoagulants; Z91.041 Radiographic dye allergy status; Z88.0 Allergy status to penicillin; Z88.1 Allergy status to other antibiotic agents
CPT/HCPCS: 36415; 76830; 76830-26; 80053; 85025; 85610; 85730; 86850; 86900; 86901; 99283; 99284-25

== ENCOUNTER 2020-11-13 02:54 | Emergency (ER) | payer MEDICAID ==
--- NOTE | 2020-11-13 04:25 | EDM.PDOC ---
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 Since about 24 October the patient has had some vaginal bleeding this really escalated over the last week or so. She was seen here in the emergency room on Tuesday and yesterday she was seen again by her supervisor felting, Dr. Romero, Who had her stop the Provera and gave her a shot of Lupron she is still spotting went through 9 pads in 8 hours at work and on the way home still saturated the pad and soiled her clothing. Patient is now developing some lightheadedness especially with change in position and is feeling weak and more fatigued. - Related Data Allergies Allergy/AdvReac Type Severity Reaction Status Date / Time azithromycin Allergy Severe Rash Verified 11/13/20 03:15 ciprofloxacin [From Cipro] Allergy Severe Hives Verified 11/13/20 03:15 ciprofloxacin HCl Allergy Severe Hives Verified 11/13/20 03:15 [From Cipro] erythromycin lactobionate Allergy Severe Rash Verified 11/13/20 03:15 [From Erythrocin] Iodinated Contrast Media Allergy Severe Anaphylactic Verified 11/13/20 03:15 [Iodinated Contrast Media - Shock IV Dye] Penicillins Allergy Severe Rash Verified 11/13/20 03:15 Home Meds: Home Meds Ferrous Sulfate [Slow Fe] 50 mg PO DAILY 09/01/20 [History] Rivaroxaban [Xarelto] 20 mg PO DAILY 11/09/20 [History] Past Medical History - Past Health History Medical/Surgical History: Denies Medical/Surgical History HEENT History: Reports: Impaired Vision Other HEENT History: wears contacts and glasses Cardiovascular History: Reports: Heart Murmur, Other (See Below) Other Cardiovascular History: Mitral valve prolapse Respiratory History: Reports: None Gastrointestinal History: Reports: Hemorrhoids Genitourinary History: Reports: None GLASS LATHE OPERATOR History: Reports: Dysfunctional Uterine Bleeding, 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, , Other (See Below) Other GLASS LATHE OPERATOR History: ;ovarian cysts laparoscopies,. nabothian cyst Musculoskeletal History: Reports: None Neurological History: Reports: Migraines Other Neuro History: migraines Psychiatric History: Reports: None Endocrine/Metabolic History: Reports: None Hematologic History: Reports: Anticoagulation Therapy Immunologic History: Reports: None Oncologic (Cancer) History: Reports: None Dermatologic History: Reports: None - Infectious Disease History Infectious Disease History: Reports: Influenza - Past Surgical History Head Surgeries/Procedures: Reports: None HEENT Surgical History: Reports: Adenoidectomy, Tonsillectomy Cardiovascular Surgical History: Reports: Other (See Below) Other Cardiovascular Surgeries/Procedures: mitral valve GI Surgical History: Reports: Appendectomy, Colonoscopy Other GI Surgeries/Procedures: hemorrhoid banding Female Surgical History: Reports: Section, Salpingo-Oophorectomy, Other (See Below) Other Female Surgeries/Procedures: left side Social & Family History - Family History Family Medical History: No Pertinent Family History Neurological: Reports: Other (See Below) Other Neurological Family History: neurofibromatosis - father & brother Endocrine/Metabolic: Reports: Diabetes, type II Other Oncologic Family History: several cancers in dad's side of family - Tobacco Use Tobacco Use Status *Q: Never Tobacco User - Caffeine Use Caffeine Use: Reports: Coffee Other Caffeine Use: daily - Recreational Drug Use Recreational Drug Use: No ED ROS GENERAL - Review of Systems Review Of Systems: See Below Constitutional: Reports: Weakness, Fatigue. Denies: No Symptoms HEENT: Reports: No Symptoms Respiratory: Reports: Shortness of Breath (With activity). Denies: No Symptoms Cardiovascular: Reports: Lightheadedness Endocrine: Reports: Fatigue GI/Abdominal: Reports: No Symptoms : Reports: Other (Persistent heavy vaginal bleeding) Musculoskeletal: Reports: No Symptoms Skin: Reports: No Symptoms Neurological: Reports: No Symptoms ED EXAM, GENERAL - Physical Exam Exam: See Below Exam Limited By: No Limitations General Appearance: Alert, No Apparent Distress Head: Atraumatic, Normocephalic Neck: Normal Inspection, Supple, Non-Tender, Full Range of Motion Respiratory/Chest: No Respiratory Distress, Lungs Clear, Normal Breath Sounds Cardiovascular: Regular Rate, Rhythm, No Edema, No Murmur GI/Abdominal: Normal Bowel Sounds, Soft, Non-Tender Back Exam: Normal Inspection. No: CVA Tenderness (L), CVA Tenderness (R) Extremities: Normal Inspection, No Pedal Edema Course - Vital Signs Last Recorded V/S: Last Vital Signs Temp 36.7 C 11/13/20 12:03 Pulse 84 11/13/20 12:03 Resp 14 11/13/20 12:03 BP 109/66 11/13/20 12:03 Pulse Ox 99 11/13/20 08:00 - Orders/Labs/Meds Labs: Laboratory Tests 11/13/20 11/13/20 11/13/20 Range/Units 04:35 04:35 04:35 WBC 8.17 (3.98-10.04) K/mm3 RBC 2.29 L (3.98-5.22) M/mm3 Hgb 6.0 L* D (11.2-15.7) gm/dl Hct 19.8 L (34.1-44.9) % MCV 86.5 (79.4-94.8) fl MCH 26.2 (25.6-32.2) pg MCHC 30.3 L (32.2-35.5) g/dl RDW Std Deviation 43.1 (36.4-46.3) fL Plt Count 247 (182-369) K/mm3 MPV 9.2 L (9.4-12.3) fl Neut % (Auto) 68.8 (34.0-71.1) % Lymph % (Auto) 19.7 (19.3-51.7) % [place] % (Auto) 9.4 (4.7-12.5) % Eos % (Auto) 1.0 (0.7-5.8) Baso % (Auto) 0.7 (0.1-1.2) % Neut # (Auto) 5.62 (1.56-6.13) K/mm3 Lymph # (Auto) 1.61 (1.18-3.74) K/mm3 [place] # (Auto) 0.77 H (0.24-0.36) K/mm3 Eos # (Auto) 0.08 (0.04-0.36) K/mm3 Baso # (Auto) 0.06 (0.01-0.08) K/mm3 Manual Slide Review Abnormal smear Sodium (136-145) mEq/L Potassium (3.5-5.1) mEq/L Chloride (98-107) mEq/L Carbon Dioxide (21-32) mEq/L Anion Gap (5-15) BUN (7-18) mg/dL Creatinine (0.55-1.02) mg/dL Est Cr Clr Drug Dosing mL/min Estimated GFR (MDRD) (>60) mL/min BUN/Creatinine Ratio (14-18) Glucose (74-106) mg/dL Calcium (8.5-10.1) mg/dL Total Bilirubin (0.2-1.0) mg/dL AST (15-37) U/L ALT (14-59) U/L Alkaline Phosphatase (46-116) U/L Total Protein (6.4-8.2) g/dl Albumin (3.4-5.0) g/dl Globulin gm/dL Albumin/Globulin Ratio (1-2) HCG, Qual Negative (NEGATIVE) Blood Type AB POSITIVE Gel Antibody Screen Negative Crossmatch See Detail 11/13/20 Range/Units 04:35 WBC (3.98-10.04) K/mm3 RBC (3.98-5.22) M/mm3 Hgb (11.2-15.7) gm/dl Hct (34.1-44.9) % MCV (79.4-94.8) fl MCH (25.6-32.2) pg MCHC (32.2-35.5) g/dl RDW Std Deviation (36.4-46.3) fL Plt Count (182-369) K/mm3 MPV (9.4-12.3) fl Neut % (Auto) (34.0-71.1) % Lymph % (Auto) (19.3-51.7) % [place] % (Auto) (4.7-12.5) % Eos % (Auto) (0.7-5.8) Baso % (Auto) (0.1-1.2) % Neut # (Auto) (1.56-6.13) K/mm3 Lymph # (Auto) (1.18-3.74) K/mm3 [place] # (Auto) (0.24-0.36) K/mm3 Eos # (Auto) (0.04-0.36) K/mm3 Baso # (Auto) (0.01-0.08) K/mm3 Manual Slide Review Sodium 139 (136-145) mEq/L Potassium 3.5 (3.5-5.1) mEq/L Chloride 106 (98-107) mEq/L Carbon Dioxide 24 (21-32) mEq/L Anion Gap 12.5 (5-15) BUN 16 (7-18) mg/dL Creatinine 0.7 (0.55-1.02) mg/dL Est Cr Clr Drug Dosing 81.11 mL/min Estimated GFR (MDRD) > 60 (>60) mL/min BUN/Creatinine Ratio 22.9 H (14-18) Glucose 102 (74-106) mg/dL Calcium 8.1 L (8.5-10.1) mg/dL Total Bilirubin 0.2 (0.2-1.0) mg/dL AST 12 L (15-37) U/L ALT 17 (14-59) U/L Alkaline Phosphatase 26 L (46-116) U/L Total Protein 5.8 L (6.4-8.2) g/dl Albumin 3.2 L (3.4-5.0) g/dl Globulin 2.6 gm/dL Albumin/Globulin Ratio 1.2 (1-2) HCG, Qual (NEGATIVE) Blood Type Gel Antibody Screen Crossmatch Meds: Medications Discontinued Medications Generic Name Dose Route Start Last Admin Trade Name Freq PRN Reason Stop Dose Admin Sodium Chloride 250 mls @ 50 mls/hr 11/13/20 06:15 11/13/20 07:12 Normal Saline IV 50 mls/hr ASDIRECTED [facility] Administration - Re-Assessments/Exams Free Text/Narrative Re-Assessment/Exam: 11/13/20 05:24 The patient's hemoglobin came back at 6.0. She was 10.8 on the 28 of this last month. I discussed the pros and cons with the patient we will transfuse 1 unit of packed red cells and see how she does. 11/13/20 08:32 Patient's case reviewed with Dr. Romero. The patient is receiving her first unit of packed red cells now anticipating her to get a second unit. Dr. Romero saw the patient yesterday started her on Lupron hoping the patient would be willing to have an IUD placed. However the patient is quite reluctant going to an IUD. She wants a hysterectomy. I explained to the patient that it would be unwise and unsafe to take her to surgery for hysterectomy at this time she needs to get stabilized she is really quite sick with as much blood and she is lost and her coagulopathy. The Lupron, on its own, can take quite a long time to really be effective. I warned the patient she may require multiple transfusions if the bleeding does not slow down so anything that could be done to help slow the bleeding down is highly recommended at this time. I have urged the patient to give the IUD serious consideration. Dr. Romero said she would make time at any time during the day to put this IUD in at her office. At this time it is change of shift further care if needed per Dr. Maldonado. Departure - Departure Time of Disposition: 13:10 Disposition: Home, Self-Care 01 Clinical Impression: Abnormal uterine bleeding, Coagulopathy, Recurrent deep vein thrombosis, At risk for hemorrhage associated with anticoagulation therapy - Discharge Information Instructions: Abnormal Uterine Bleeding, [id number] Referrals: PCP,None [Primary Care Provider] - Forms: ED Department Discharge Additional Instructions: Return to the emergency room with any questions problems or worsening symptoms. Follow-up with Dr. Romero as soon as you can. Give strong consideration to the IUD placement. Sepsis Event Note (ED) - Evaluation Sepsis Screening Result: No Definite Risk - Focused Exam Vital Signs: Vital Signs Temp Pulse Resp BP Pulse Ox 11/13/20 12:03 36.7 C 84 14 109/66 11/13/20 11:45 36.6 C 85 14 108/58 L 11/13/20 10:13 36.6 C 92 14 108/66 11/13/20 09:57 36.8 C 88 14 103/64 11/13/20 09:35 36.7 C 92 14 106/69 11/13/20 08:00 100 14 110/72 99 11/13/20 07:29 36.6 C 92 16 110/70 11/13/20 07:15 36.5 C 95 14 107/65
[2020-11-13] MEDS ORDERED: Sodium Chloride 0.9% 250 ML IV SCH (06:15)
[2020-11-13 12:05] VITALS: BP 109/66; PULSE 84
== END 2020-11-13 13:10 | disposition home or self-care (01) ==
LOC: JD.ED 02:54
DX: N93.9 Abnormal uterine and vaginal bleeding, unspecified (principal); D68.9 Coagulation defect, unspecified; I82.409 Acute embolism and thrombosis of unspecified deep veins of unspecified lower extremity; Z79.01 Long term (current) use of anticoagulants; Z88.1 Allergy status to other antibiotic agents; Z91.041 Radiographic dye allergy status; Z88.0 Allergy status to penicillin; Z79.899 Other long term (current) drug therapy
CPT/HCPCS: 36415; 36430; 80053; 84703; 85025; 86850; 86900; 86901; 86922; 99284; J7050; P9016

== ENCOUNTER 2020-11-16 16:58 | Emergency (ER) | payer MEDICAID ==
[2020-11-16] MEDS ORDERED: Sodium Chloride 0.9% 250 ML IV SCH (18:45)
--- NOTE | 2020-11-16 18:55 | EDM.PDOC ---
ED HPI GENERAL MEDICAL PROBLEM - General Chief Complaint: COUNTY TAX ASSESSOR Problem Stated Complaint: VAGINAL BLEEDING Time Seen by Provider: 11/16/20 17:33 Source of Information: Reports: Patient, RN Notes Reviewed History Limitations: Reports: No Limitations - History of Present Illness INITIAL COMMENTS - FREE TEXT/NARRATIVE: Patient a 44-year-old female presenting to the emergency department with complaints of ongoing heavy vaginal bleeding. This bleeding has been occurring since October 23. She has been seeing her COUNTY TAX ASSESSOR, Dr. Romero. She is gone through treatment of Provera, Lupron, and most recently had an IUD inserted on of this week. She has been seen in this emergency department a number of occasions with her most recent visit being 3 days ago. On that visit, her hemoglobin was found to be low at 6, therefore she received 2 units of packed RBCs. The day after is when she had her IUD inserted. She states that the bleeding has improved somewhat. Previously she was saturating a pad an hour, however now it is decreased to a pad every 2 hours. She presents today because she is feeling lightheaded and short of breath with exertion as she was prior to her last ER visit. She is on Xarelto for blood clots. Her last DVT was in June and she states this was her second blood clot, therefore she will likely need to be on Xarelto long-term. She is scheduled to see school cafeteria cook head, Dr. Boykin, on November 26 with a follow-up with her primary care, Dr. Mead, on November 27. She denies any pain associate with the bleeding, however states she does occasionally get some light period cramps. She has discussed hysterectomy with her COUNTY TAX ASSESSOR, however has been told that with her bleeding disorder and low hemoglobin, she would be too high of a risk. She is supposed to see her COUNTY TAX ASSESSOR this week to have blood work repeated, however, she does not currently have an appointment scheduled. - Related Data Allergies Allergy/AdvReac Type Severity Reaction Status Date / Time azithromycin Allergy Severe Rash Verified 11/16/20 20:22 ciprofloxacin [From Cipro] Allergy Severe Hives Verified 11/16/20 20:22 ciprofloxacin HCl Allergy Severe Hives Verified 11/16/20 20:22 [From Cipro] erythromycin lactobionate Allergy Severe Rash Verified 11/16/20 20:22 [From Erythrocin] Iodinated Contrast Media Allergy Severe Anaphylactic Verified 11/16/20 17:09 [Iodinated Contrast Media - Shock IV Dye] Penicillins Allergy Severe Rash Verified 11/16/20 20:22 Home Meds: Home Meds Ferrous Sulfate [Slow Fe] 50 mg PO DAILY 09/01/20 [History] Rivaroxaban [Xarelto] 20 mg PO DAILY 11/09/20 [History] Past Medical History - Past Health History Medical/Surgical History: Denies Medical/Surgical History HEENT History: Reports: Impaired Vision Other HEENT History: wears contacts and glasses Cardiovascular History: Reports: Heart Murmur, Other (See Below) Other Cardiovascular History: Mitral valve prolapse Respiratory History: Reports: None Gastrointestinal History: Reports: Hemorrhoids Genitourinary History: Reports: None COUNTY TAX ASSESSOR History: Reports: Dysfunctional Uterine Bleeding, 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, , Other (See Below) Other COUNTY TAX ASSESSOR History: ;ovarian cysts laparoscopies,. nabothian cyst Musculoskeletal History: Reports: None Neurological History: Reports: Migraines Other Neuro History: migraines Psychiatric History: Reports: None Endocrine/Metabolic History: Reports: None Hematologic History: Reports: Anticoagulation Therapy Immunologic History: Reports: None Oncologic (Cancer) History: Reports: None Dermatologic History: Reports: None - Infectious Disease History Infectious Disease History: Reports: Influenza - Past Surgical History Head Surgeries/Procedures: Reports: None HEENT Surgical History: Reports: Adenoidectomy, Tonsillectomy Cardiovascular Surgical History: Reports: Other (See Below) Other Cardiovascular Surgeries/Procedures: mitral valve GI Surgical History: Reports: Appendectomy, Colonoscopy Other GI Surgeries/Procedures: hemorrhoid banding Female Surgical History: Reports: Section, Salpingo-Oophorectomy, Other (See Below) Other Female Surgeries/Procedures: left side Social & Family History - Family History Family Medical History: No Pertinent Family History Neurological: Reports: Other (See Below) Other Neurological Family History: neurofibromatosis - father & brother Endocrine/Metabolic: Reports: Diabetes, type II Other Oncologic Family History: several cancers in dad's side of family - Tobacco Use Tobacco Use Status *Q: Never Tobacco User - Caffeine Use Caffeine Use: Reports: Coffee Other Caffeine Use: daily - Recreational Drug Use Recreational Drug Use: No ED ROS GENERAL - Review of Systems Review Of Systems: See Below Constitutional: Reports: Fatigue HEENT: Reports: No Symptoms Respiratory: Reports: No Symptoms Cardiovascular: Reports: Dyspnea on Exertion, Lightheadedness. Denies: Chest Pain Endocrine: Reports: No Symptoms GI/Abdominal: Reports: No Symptoms : Reports: Irregular Menses Musculoskeletal: Reports: No Symptoms Skin: Reports: No Symptoms Neurological: Reports: No Symptoms Psychiatric: Reports: No Symptoms Hematologic/Lymphatic: Reports: No Symptoms Immunologic: Reports: No Symptoms ED EXAM, RENAL/ - Physical Exam Exam: See Below Exam Limited By: No Limitations General Appearance: Alert, WD/WN, No Apparent Distress Respiratory/Chest: No Respiratory Distress, Lungs Clear, Normal Breath Sounds, No Accessory Muscle Use, Chest Non-Tender Cardiovascular: Normal Peripheral Pulses, Regular Rate, Rhythm, No Edema, No Gallop, No JVD, No Murmur, No Rub GI/Abdominal: Normal Bowel Sounds, Soft, Non-Tender, No Organomegaly, No Distention, No Abnormal Bruit, No Mass Neurological: Alert, Oriented, CN II-XII Intact, Normal Cognition, Normal Gait, Normal Reflexes, No Motor/Sensory Deficits Psychiatric: Normal Affect, Normal Mood Skin Exam: Warm, Dry, Intact, No Rash, Pallor Course - Vital Signs Last Recorded V/S: Last Vital Signs Temp 97.9 F 11/16/20 22:00 Pulse 80 11/16/20 22:00 Resp 16 11/16/20 22:00 BP 104/79 11/16/20 22:00 Pulse Ox 99 11/16/20 22:00 - Orders/Labs/Meds Labs: Laboratory Tests 11/16/20 11/16/20 11/16/20 Range/Units 17:47 17:47 17:47 WBC 9.50 (3.98-10.04) K/mm3 RBC 2.45 L (3.98-5.22) M/mm3 Hgb 6.5 L* (11.2-15.7) gm/dl Hct 20.8 L (34.1-44.9) % MCV 84.9 (79.4-94.8) fl MCH 26.5 (25.6-32.2) pg MCHC 31.3 L (32.2-35.5) g/dl RDW Std Deviation 42.4 (36.4-46.3) fL Plt Count 275 (182-369) K/mm3 MPV 8.9 L (9.4-12.3) fl Neut % (Auto) 78.0 H (34.0-71.1) % Lymph % (Auto) 12.2 L (19.3-51.7) % [place] % (Auto) 8.7 (4.7-12.5) % Eos % (Auto) 0.3 L (0.7-5.8) Baso % (Auto) 0.4 (0.1-1.2) % Neut # (Auto) 7.40 H (1.56-6.13) K/mm3 Lymph # (Auto) 1.16 L (1.18-3.74) K/mm3 [place] # (Auto) 0.83 H (0.24-0.36) K/mm3 Eos # (Auto) 0.03 L (0.04-0.36) K/mm3 Baso # (Auto) 0.04 (0.01-0.08) K/mm3 Manual Slide Review Abnormal smear Sodium 139 (136-145) mEq/L Potassium 3.7 (3.5-5.1) mEq/L Chloride 106 (98-107) mEq/L Carbon Dioxide 24 (21-32) mEq/L Anion Gap 12.7 (5-15) BUN 14 (7-18) mg/dL Creatinine 0.7 (0.55-1.02) mg/dL Est Cr Clr Drug Dosing 81.11 mL/min Estimated GFR (MDRD) > 60 (>60) mL/min BUN/Creatinine Ratio 20.0 H (14-18) Glucose 92 (74-106) mg/dL Calcium 8.4 L (8.5-10.1) mg/dL Total Bilirubin 0.4 (0.2-1.0) mg/dL AST 10 L (15-37) U/L ALT 15 (14-59) U/L Alkaline Phosphatase 23 L (46-116) U/L Total Protein 5.8 L (6.4-8.2) g/dl Albumin 3.1 L (3.4-5.0) g/dl Globulin 2.7 gm/dL Albumin/Globulin Ratio 1.2 (1-2) Blood Type AB POSITIVE Gel Antibody Screen Negative Crossmatch See Detail Meds: Medications Discontinued Medications Generic Name Dose Route Start Last Admin Trade Name Freq PRN Reason Stop Dose Admin Sodium Chloride 250 mls @ 25 mls/hr 11/16/20 18:45 11/16/20 18:52 Normal Saline IV 25 mls/hr ASDIRECTED [facility] Administration - Re-Assessments/Exams Free Text/Narrative Re-Assessment/Exam: Patient is a 44-year-old female presenting to the emergency department with complaints of ongoing vaginal bleeding which has been occurring since 23 October. She was seen in this emergency department 3 days ago and received a transfusion of 2 units of packed RBCs. She saw her COUNTY TAX ASSESSOR, Dr. Romero, the next day and had IUD inserted. She states that she continues to have bleeding, however it has decreased slightly. Previously she was saturating a pad an hour and she is now saturating a pad every 2 hours. She is supposed to see Dr. Romero in follow-up this week to have her blood work rechecked. She is also scheduled to see school cafeteria cook head, Dr. Boykin and her primary care in approximately 10 days. We will check her blood values today and transfuse if needed. I have ordered CBC, CMP, and a type and screen 11/16/20 1800 Patient's hemoglobin is found to be low at 6.5. I have ordered 2 units of packed RBCs to be transfused. Risk discussed with patient and she is in agreement with the transfusion. Appropriate written consent was obtained. 11/16/20 22:17 Patient has completed her second unit of packed RBCs. She is feeling somewhat better and is ready go home and go to bed. Color has improved. We will discharge her home with instructions to contact Dr. Romero tomorrow morning to make her aware of the transfusion and for ongoing monitoring. Discussed return precautions. Discharge instructions as documented. Departure - Departure Time of Disposition: 22:18 Disposition: Home, Self-Care 01 Condition: Good Clinical Impression: Abnormal uterine bleeding, At risk for hemorrhage associated with anticoagulation therapy, Coagulopathy, Low hemoglobin - Discharge Information Instructions: Dysmenorrhea, [id number] Referrals: Vicki Torres MD [Primary Care Provider] - Peggy Romero MD [Physician] - Forms: ED Department Discharge Additional Instructions: You were seen in the emergency department today for ongoing vaginal bleeding with increased shortness of breath and dizziness. Blood work was completed your hemoglobin is found to be low at 6.5. While in the ER, you received a transfusion of 2 units of blood. This will increase your hemoglobin, however it is important that you follow-up with Dr. Romero as planned this week. I would also recommend that you keep your appointment with your school cafeteria cook head and primary care provider as currently scheduled. If you should experience any new or worsening symptoms of concern, please do not hesitate to return to the emergency department. Sepsis Event Note (ED) - Evaluation Sepsis Screening Result: No Definite Risk
[2020-11-16 22:36] VITALS: BP 104/79; PULSE 80
== END 2020-11-16 22:29 | disposition home or self-care (01) ==
LOC: JD.ED 16:58
DX: N93.9 Abnormal uterine and vaginal bleeding, unspecified (principal); D68.9 Coagulation defect, unspecified; D64.9 Anemia, unspecified; Z88.1 Allergy status to other antibiotic agents; Z91.041 Radiographic dye allergy status; Z88.0 Allergy status to penicillin; Z79.899 Other long term (current) drug therapy; Z79.01 Long term (current) use of anticoagulants
CPT/HCPCS: 36415; 36430; 80053; 85025; 86850; 86900; 86901; 86922; 99283; J7050; P9016

== ENCOUNTER 2020-11-24 16:28 | Emergency (ER) | payer MEDICAID ==
[2020-11-24] MEDS ORDERED: Acetaminophen 325 MG Tab PO ONE (17:07)
--- NOTE | 2020-11-24 17:14 | EDM.PDOC ---
ED HPI GENERAL MEDICAL PROBLEM - General Chief Complaint: OFFICE EQUIPMENT MECHANIC Problem Stated Complaint: HEAVY VAGINAL BLEEDING Time Seen by Provider: 11/24/20 16:40 Source of Information: Reports: Patient, RN Notes Reviewed History Limitations: Reports: No Limitations - History of Present Illness INITIAL COMMENTS - FREE TEXT/NARRATIVE: Patient is a 44-year-old female presenting to the emergency department with complaints of continued heavy vaginal bleeding as well as intermittent cramping. She has been having problems with constant vaginal bleeding for last few months. She estimates that she is saturating a pad an hour. She complains of dizziness, shortness of breath, and extreme fatigue. She is on Xarelto with a history of 2 clotting events, therefore will likely be on this medication for life. She has been doctoring with her OFFICE EQUIPMENT MECHANIC, Dr. Romero. She is scheduled for hysterectomy on December 10. She has required blood transfusions 2 times prior to this visit in this emergency department. The last visits were November 13 and November 16. On each of these visits, she received 2 units of red blood cells. Earlier this morning, she took Tylenol for the cramping but has not taken anything since then. Pelvic Pain Score (Numeric/FACES): 8 - Related Data Allergies Allergy/AdvReac Type Severity Reaction Status Date / Time Iodinated Contrast Media Allergy Severe Anaphylactic Verified 11/24/20 16:39 [Iodinated Contrast Media - Shock IV Dye] azithromycin Allergy Intermediate Rash Verified 11/26/20 12:01 erythromycin lactobionate Allergy Intermediate Rash Verified 11/26/20 12:01 [From Erythrocin] Penicillins Allergy Intermediate Rash Verified 11/26/20 12:01 ciprofloxacin [From Cipro] Allergy Mild Hives Verified 11/26/20 12:01 ciprofloxacin HCl Allergy Mild Hives Verified 11/26/20 12:01 [From Cipro] Home Meds: Home Meds Ferrous Sulfate [Slow Fe] 50 mg PO DAILY 09/01/20 [History] Rivaroxaban [Xarelto] 20 mg PO DAILY 11/09/20 [History] Past Medical History - Past Health History Medical/Surgical History: Denies Medical/Surgical History HEENT History: Reports: Impaired Vision Other HEENT History: wears contacts and glasses Cardiovascular History: Reports: Heart Murmur, Other (See Below) Other Cardiovascular History: Mitral valve prolapse Respiratory History: Reports: None Gastrointestinal History: Reports: Hemorrhoids Genitourinary History: Reports: None OFFICE EQUIPMENT MECHANIC History: Reports: Dysfunctional Uterine Bleeding, 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, , Other (See Below) Other OFFICE EQUIPMENT MECHANIC History: ;ovarian cysts laparoscopies,. nabothian cyst Musculoskeletal History: Reports: None Neurological History: Reports: Migraines Other Neuro History: migraines Psychiatric History: Reports: None Endocrine/Metabolic History: Reports: None Hematologic History: Reports: Anticoagulation Therapy Immunologic History: Reports: None Oncologic (Cancer) History: Reports: None Dermatologic History: Reports: None - Infectious Disease History Infectious Disease History: Reports: Influenza - Past Surgical History Head Surgeries/Procedures: Reports: None HEENT Surgical History: Reports: Adenoidectomy, Tonsillectomy Cardiovascular Surgical History: Reports: Other (See Below) Other Cardiovascular Surgeries/Procedures: mitral valve GI Surgical History: Reports: Appendectomy, Colonoscopy Other GI Surgeries/Procedures: hemorrhoid banding Female Surgical History: Reports: Section, Salpingo-Oophorectomy, Other (See Below) Other Female Surgeries/Procedures: left side Social & Family History - Family History Family Medical History: No Pertinent Family History Neurological: Reports: Other (See Below) Other Neurological Family History: neurofibromatosis - father & brother Endocrine/Metabolic: Reports: Diabetes, type II Other Oncologic Family History: several cancers in dad's side of family - Tobacco Use Tobacco Use Status *Q: Never Tobacco User - Caffeine Use Caffeine Use: Reports: Coffee Other Caffeine Use: daily - Recreational Drug Use Recreational Drug Use: No ED ROS GENERAL - Review of Systems Review Of Systems: See Below Constitutional: Reports: Fatigue. Denies: Fever, Chills HEENT: Reports: No Symptoms Respiratory: Reports: No Symptoms Cardiovascular: Reports: Dyspnea on Exertion, Lightheadedness. Denies: Chest Pain, Palpitations, Syncope Endocrine: Reports: No Symptoms GI/Abdominal: Reports: No Symptoms : Reports: Irregular Menses, Pain (pelvic cramping) Musculoskeletal: Reports: No Symptoms Skin: Reports: No Symptoms Neurological: Reports: No Symptoms Psychiatric: Reports: No Symptoms Hematologic/Lymphatic: Reports: No Symptoms Immunologic: Reports: No Symptoms ED EXAM, RENAL/ - Physical Exam Exam: See Below General Appearance: Alert, WD/WN, No Apparent Distress Respiratory/Chest: No Respiratory Distress, Lungs Clear, Normal Breath Sounds, No Accessory Muscle Use, Chest Non-Tender Cardiovascular: Normal Peripheral Pulses, Regular Rate, Rhythm, No Edema, No Gallop, No JVD, No Murmur, No Rub GI/Abdominal: Normal Bowel Sounds, Soft, No Organomegaly, No Distention, No Abn ormal Bruit, No Mass, Tender (mild suprapubuc) Neurological: Alert, Oriented, CN II-XII Intact, Normal Cognition, Normal Gait, Normal Reflexes, No Motor/Sensory Deficits Psychiatric: Normal Affect, Normal Mood Skin Exam: Warm, Dry, Intact, No Rash, Pallor Course - Vital Signs Last Recorded V/S: Last Vital Signs Temp 97.8 F 11/24/20 20:10 Pulse 83 11/24/20 20:10 Resp 16 11/24/20 20:10 BP 101/63 11/24/20 20:10 Pulse Ox 100 11/24/20 20:10 - Orders/Labs/Meds Labs: Laboratory Tests 11/24/20 11/24/20 11/24/20 Range/Units 17:13 17:13 17:13 WBC 10.63 H (3.98-10.04) K/mm3 RBC 2.57 L (3.98-5.22) M/mm3 Hgb 6.7 L* (11.2-15.7) gm/dl Hct 21.6 L (34.1-44.9) % MCV 84.0 (79.4-94.8) fl MCH 26.1 (25.6-32.2) pg MCHC 31.0 L (32.2-35.5) g/dl RDW Std Deviation 41.0 (36.4-46.3) fL Plt Count 309 (182-369) K/mm3 MPV 9.4 (9.4-12.3) fl Neut % (Auto) 77.0 H (34.0-71.1) % Lymph % (Auto) 12.2 L (19.3-51.7) % [place] % (Auto) 9.2 (4.7-12.5) % Eos % (Auto) 0.8 (0.7-5.8) Baso % (Auto) 0.4 (0.1-1.2) % Neut # (Auto) 8.19 H (1.56-6.13) K/mm3 Lymph # (Auto) 1.30 (1.18-3.74) K/mm3 [place] # (Auto) 0.98 H (0.24-0.36) K/mm3 Eos # (Auto) 0.08 (0.04-0.36) K/mm3 Baso # (Auto) 0.04 (0.01-0.08) K/mm3 Manual Slide Review Abnormal smear Sodium 140 (136-145) mEq/L Potassium 3.7 (3.5-5.1) mEq/L Chloride 106 (98-107) mEq/L Carbon Dioxide 24 (21-32) mEq/L Anion Gap 13.7 (5-15) BUN 11 (7-18) mg/dL Creatinine 0.6 (0.55-1.02) mg/dL Est Cr Clr Drug Dosing 94.63 mL/min Estimated GFR (MDRD) > 60 (>60) mL/min BUN/Creatinine Ratio 18.3 H (14-18) Glucose 92 (74-106) mg/dL Calcium 8.8 (8.5-10.1) mg/dL Total Bilirubin 0.2 (0.2-1.0) mg/dL AST 13 L (15-37) U/L ALT 16 (14-59) U/L Alkaline Phosphatase 36 L (46-116) U/L Total Protein 6.4 (6.4-8.2) g/dl Albumin 3.2 L (3.4-5.0) g/dl Globulin 3.2 gm/dL Albumin/Globulin Ratio 1.0 (1-2) HCG, Qual (NEGATIVE) SARS-CoV-2 RNA (BRETT) (NEGATIVE) Blood Type AB POSITIVE Gel Antibody Screen Negative Crossmatch See Detail 11/24/20 11/24/20 Range/Units 17:13 17:52 WBC (3.98-10.04) K/mm3 RBC (3.98-5.22) M/mm3 Hgb (11.2-15.7) gm/dl Hct (34.1-44.9) % MCV (79.4-94.8) fl MCH (25.6-32.2) pg MCHC (32.2-35.5) g/dl RDW Std Deviation (36.4-46.3) fL Plt Count (182-369) K/mm3 MPV (9.4-12.3) fl Neut % (Auto) (34.0-71.1) % Lymph % (Auto) (19.3-51.7) % [place] % (Auto) (4.7-12.5) % Eos % (Auto) (0.7-5.8) Baso % (Auto) (0.1-1.2) % Neut # (Auto) (1.56-6.13) K/mm3 Lymph # (Auto) (1.18-3.74) K/mm3 [place] # (Auto) (0.24-0.36) K/mm3 Eos # (Auto) (0.04-0.36) K/mm3 Baso # (Auto) (0.01-0.08) K/mm3 Manual Slide Review Sodium (136-145) mEq/L Potassium (3.5-5.1) mEq/L Chloride (98-107) mEq/L Carbon Dioxide (21-32) mEq/L Anion Gap (5-15) BUN (7-18) mg/dL Creatinine (0.55-1.02) mg/dL Est Cr Clr Drug Dosing mL/min Estimated GFR (MDRD) (>60) mL/min BUN/Creatinine Ratio (14-18) Glucose (74-106) mg/dL Calcium (8.5-10.1) mg/dL Total Bilirubin (0.2-1.0) mg/dL AST (15-37) U/L ALT (14-59) U/L Alkaline Phosphatase (46-116) U/L Total Protein (6.4-8.2) g/dl Albumin (3.4-5.0) g/dl Globulin gm/dL Albumin/Globulin Ratio (1-2) HCG, Qual Negative (NEGATIVE) SARS-CoV-2 RNA (BRETT) Negative (NEGATIVE) Blood Type Gel Antibody Screen Crossmatch Meds: Medications Discontinued Medications Generic Name Dose Route Start Last Admin Trade Name Freq PRN Reason Stop Dose Admin Acetaminophen 975 mg 11/24/20 17:07 11/24/20 17:30 Acetaminophen 325 Mg Tab PO 11/24/20 17:08 975 mg NOW ONE Administration Sodium Chloride 250 mls @ 25 mls/hr 11/24/20 20:30 11/24/20 19:46 Normal Saline IV 25 mls/hr ASDIRECTED MELISSA Administration - Re-Assessments/Exams Free Text/Narrative Re-Assessment/Exam: Patient is a 44-year-old female presenting to the emergency department complaints of ongoing heavy vaginal bleeding, pelvic cramping, dizziness, shortness of breath, and fatigue. She has been seen in this emergency department on 2 other occasions with similar symptoms and on both times received blood transfusions due to low hemoglobin. At this point, she states that she is saturating a 12-hour pad an hour. She is scheduled to have a hysterectomy completed at the end of November as well as see sausage meat trimmer on the . I have ordered CBC, CMP, and type and screen. Once his results available, I will call and discuss the case with her OFFICE EQUIPMENT MECHANIC, Dr. Poe 11/24/[id number] Case discussed with the patient's OFFICE EQUIPMENT MECHANIC, Dr. Romero. She verbalized that patient is not stable to undergo hysterectomy, however she is scheduled to have a uterine embolization completed on November 27 with interventional radiology at [facility] in [place]. This should help in order for her to be stabilized for hysterectomy at the end of the month. She does state that unfortunately of the soonest they were able to get her her in, however given that this will be her third blood transfusion, we could try contacting [facility] and see if they would move that up. Called and spoke with the interventional radiologist at [facility], Dr. Ramirez. He has recommended the patient be transferred to [place] and they will plan to complete the uterine embolization either tomorrow or Tuesday. If she would become unstable, they would do it emergently. I have ordered 2 units of packed RBCs, however given that she is transferred to [place], we did notify lab that she will only require 1. We will plan to transfer her via ambulance once the transfusion has started, so that it may infuse in route. Patient is in agreement with this plan. Departure - Departure Time of Disposition: 20:00 Disposition: DC/Tfer to Acute Hospital 02 Condition: Good Clinical Impression: At risk for hemorrhage associated with anticoagulation therapy, Abnormal uterine bleeding Menorrhagia Qualifiers: Menorrhagia type: with regular cycle Qualified Code(s): N92.0 - Excessive and frequent menstruation with regular cycle - Discharge Information Referrals: Vicki Torres MD [Primary Care Provider] - Forms: ED Department Discharge Sepsis Event Note (ED) - Evaluation Sepsis Screening Result: No Definite Risk
[2020-11-24 20:29] VITALS: BP 101/63; PULSE 83
[2020-11-24] MEDS ORDERED: Sodium Chloride 0.9% 250 ML IV SCH (20:30)
== END 2020-11-24 20:15 ==
LOC: JD.ED 16:28
DX: N92.0 Excessive and frequent menstruation with regular cycle (principal); D68.32 Hemorrhagic disorder due to extrinsic circulating anticoagulants; T45.515A Adverse effect of anticoagulants, initial encounter; Z91.041 Radiographic dye allergy status; Z88.1 Allergy status to other antibiotic agents; Z88.0 Allergy status to penicillin; Z79.899 Other long term (current) drug therapy; Z79.01 Long term (current) use of anticoagulants; Z20.822 Contact with and (suspected) exposure to COVID-19
CPT/HCPCS: 36415; 36430; 80053; 84703; 85025; 86850; 86900; 86901; 86922; 87635; 99285; A9270; J7050; P9016; 99284; U0002

== ENCOUNTER 2020-12-10 06:59 | Inpatient (IN) | payer MEDICAID ==
[2020-12-10] MEDS ORDERED: Lidocaine 1% with EPINEPHrine 1:100,000 10 ML MDV ONE (07:19)
[2020-12-10] MEDS ORDERED: Bupivacaine 0.5% 30 ML SDV ONE (07:19)
[2020-12-10] MEDS ORDERED: Ondansetron 4 MG/2 ML SDV IVPUSH PRN ×3 (07:24→12:24)
[2020-12-10] MEDS ORDERED: Scopolamine 1.5 MG Transdermal Patch TRDERM ONE (07:24)
--- NOTE | 2020-12-10 07:26 | PCM.OPNOTE ---
- General Post-Op/Procedure Note Date of Surgery/Procedure: 12/10/20 Operative Procedure(s): Diagnostic laparoscopy. Exploratory laparotomy. Lysis of adhesions. Abdominal hysterectomy Findings: Extensive adhesive disease between the bowel and posterior/left aspect of the uterus. Scarring noted between uterus and bladder. Normal appearance to right ovary. Right fallopian tube adherent to ovary/pelvic side wall. Pre Op Diagnosis: Abnormal uterine bleeding. Use of chronic anticoagulant. History of uterine artery embolization Post-Op Diagnosis: Same Anesthesia Technique: General ET Tube Primary Surgeon: Peggy Romero Secondary Surgeon: Veerna Duncan Anesthesia Provider: Lorena Gonzalez Reason Refinisher Was Necessary: Adhesive disease, speed/safety of procedure Pathology: Cervix and uterus sent to pathology Fluid Replacement, Intraop: 3,300 Output, Urine Amount: 600 EBL in mLs: 100 Complications: None Condition: Good Free Text/Narrative:: The patient was taken to the Operating Room where general anesthesia was induced without complication. The patient was placed in dorsal lithotomy with Triston Sti rrups and an exam under anesthesia revealed the findings detailed above. The patient was then prepped and draped in the usual sterile fashion. A sterile bivalve speculum was placed into the vagina and the anterior lip of the cervix was grasped with a single tooth tenaculum and a Skyword uterine manipulator was placed to allow uterine manipulation throughout the procedure. The speculum and single tooth tenaculum were removed from the vagina. A [place]cia catheter was placed in sterile fashion. Attention was then turned to the patients abdomen where a Veress needle was carefully introduced into the peritoneal cavity while tenting the abdominal wall. Intraperitoneal placement was confirmed by free flow of saline into the abdomen from a syringe open to gravity and with a low intraabdominal pressure with insufflation of C02 gas on low flow. The gas was increased to high flow and a pneumoperitoneum was obtained with C02 gas to a pressure of 15 mm Hg. A 5 mm skin incision was made in a vertical fashion in the umbilical fold and a 5 mm blunt trocar was inserted into the abdomen with direct visualization of the laparoscope through the clear view trocar lens. 5 mm skin incisions were made in both the left and right lower quadrants approximately 10 cm lateral and 3 cm inferior to the umbilicus. 5 mm blunt trocars were inserted into the abdomen under direct visualization with care to avoid the abdominal wall vasculature. A blunt probe and grasper were inserted through the accessory ports and a survey of the abdomen revealed the findings detailed above. Due to extensive adhesive disease decision made to convert to open procedure. Insufflation discontinued and trocars removed. A Pfannenstiel skin incision was made with a scalpel and carried down to the rectus fascia. The fascia was incised and opened the length of the skin incision. The peritoneum was entered sharply and extended. Exploration of the abdomen and pelvis was undertaken with findings noted above. The bowel was very slowly dissected away from the posterior aspect of the uterus using a combination of sharp and blunt dissection. The utero-ovarian ligament and fallopian tube was then cauterized and transected on the right. The bladder was then slowly dissected off the cervix down below the cervicovaginal junction using sharp dissection and cautery. The uterine vessels were skeletonized, clamped, transected and suture ligated bilaterally. Next the cardinal and uterosacral ligaments were serially clamped, transected and suture ligated bilaterally. Clamps were placed bilaterally across the vagina below the cervico- vaginal junction. The cervix and uterus were then resected. The vaginal cuff was then closed with several interrupted sutures of running, locked 0 Vicryl. The abdomen was irrigated copiously with warm normal saline. Inspection of dissection beds and pedicles showed good hemostasis. Julián seal was placed across all pedicles. Fascia then closed with a running 0 Vicryl sutures. Subcutaneous tissue was irrigated and closed with a running 0 Vicryl suture. All trocar sites and Pfannenstiel incision were then closed with a running 4-0 Monocryl and sealed with Dermabond. Due to no IUD being present in uterus specimen at time of surgery an abdominal X-ray was done at the end of the case which did not show IUD. Presumed to be expelled. Patient then woken and taken to PACU in stable condition
--- NOTE | 2020-12-10 07:34 | PCM.PREANE ---
Preanesthetic Assessment - Procedure Proposed Procedure: [facility] - Anesthesia/Transfusion/Family Hx Anesthesia History: Prior Anesthesia Without Reaction Family History of Anesthesia Reaction: No Transfusion History: No Prior Transfusion(s) Intubation History: Unknown - Review of Systems General: No Symptoms Pulmonary: No Symptoms Cardiovascular: No Symptoms, Other (murmur she has been told ) Gastrointestinal: No Symptoms Neurological: No Symptoms Other: Reports: Easy Bleeding (on xarltro ), Easy Bruising - Physical Assessment NPO Status Date: 12/10/20 Vital Signs: 103/76 84 98 % RA Height: 1.57 m Weight: 58 kg ASA Class: 3 Mental Status: Alert & Oriented x3 Dentition: Reports: Normal Dentition, Broken Tooth/Teeth, Missing Tooth/Teeth (multiple missing ) Thyro-Mental Finger Breadths: 3 Mouth Opening Finger Breadths: 3 ROM/Head Extension: Full Lungs: Clear to Auscultation, Normal Respiratory Effort Cardiovascular: Regular Rate, Regular Rhythm, Murmurs - Lab Values: Laboratory Last Values Urine HCG, Qual Negative (NEGATIVE) 12/10/20 06:55 - Allergies Allergies/Adverse Reactions: Allergies Allergy/AdvReac Type Severity Reaction Status Date / Time Iodinated Contrast Media Allergy Severe Anaphylactic Verified 12/09/20 12:05 [Iodinated Contrast Media - Shock IV Dye] azithromycin Allergy Intermediate Rash Verified 12/09/20 12:05 erythromycin lactobionate Allergy Intermediate Rash Verified 12/09/20 12:05 [From Erythrocin] Penicillins Allergy Intermediate Rash Verified 12/09/20 12:05 ciprofloxacin [From Cipro] Allergy Mild Hives Verified 12/09/20 12:05 ciprofloxacin HCl Allergy Mild Hives Verified 12/09/20 12:05 [From Cipro] - Anesthesia Plan Pre-Op Medication Ordered: Other (scopalamine ) - Acknowledgements Anesthesia Type Planned: General Anesthesia Pt an Appropriate Candidate for the Planned Anesthesia: Yes Alternatives and Risks of Anesthesia Discussed w Pt/Guardian: Yes Pt/Guardian Understands and Agrees with Anesthesia Plan: Yes PreAnesthesia Questionnaire - Past Health History Medical/Surgical History: Denies Medical/Surgical History HEENT History: Reports: Impaired Vision Other HEENT History: wears contacts and glasses Cardiovascular History: Reports: Arrhythmia, Blood Clots/VTE/DVT, Heart Murmur, Other (See Below) Other Cardiovascular History: pulmonary valve insufficiency, pulmonary stenosis, heart catheterization as child Respiratory History: Reports: None Gastrointestinal History: Reports: Hemorrhoids Genitourinary History: Reports: None VOLCANOLOGIST History: Reports: Dysfunctional Uterine Bleeding, 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, , Other (See Below) Other OB/BYN History: abnormal uterine bleeding, menorrhagia, endometriosis, multiple laparoscopies, diagnostic laparotomy Musculoskeletal History: Reports: None Neurological History: Reports: Migraines Other Neuro History: neurofibromatosis Psychiatric History: Reports: None Endocrine/Metabolic History: Reports: None Hematologic History: Reports: Anemia, Anticoagulation Therapy, Blood Transfusion(s), Iron Deficiency Immunologic History: Reports: None Oncologic (Cancer) History: Reports: None Dermatologic History: Reports: None - Infectious Disease History Infectious Disease History: Reports: Influenza - Past Surgical History Head Surgeries/Procedures: Reports: None HEENT Surgical History: Reports: Adenoidectomy, Tonsillectomy Cardiovascular Surgical History: Reports: Other (See Below) Other Cardiovascular Surgeries/Procedures: interventional radiology uterine artery embolization Respiratory Surgical History: Reports: None GI Surgical History: Reports: Appendectomy, Colonoscopy, EGD Other GI Surgeries/Procedures: hemorrhoid banding Female Surgical History: Reports: Section, Oophorectomy, Salpingo- Oophorectomy, Other (See Below) Other Female Surgeries/Procedures: left side Male Surgical History: Reports: None Endocrine Surgical History: Reports: None Neurological Surgical History: Reports: None Musculoskeletal Surgical History: Reports: None Oncologic Surgical History: Reports: None Dermatological Surgical History: Reports: None - SUBSTANCE USE Tobacco Use Status *Q: Never Tobacco User Recreational Drug Use History: No - HOME MEDS Home Medications: Home Meds Rivaroxaban [Xarelto] 20 mg PO DAILY 11/09/20 [History] Ferrous Sulfate [Iron] 325 mg PO BID 12/09/20 [History] - CURRENT (IN HOUSE) MEDS Current Meds: Current Medications Lactated Ringer's (Ringers, Lactated) 1,000 mls @ 125 mls/hr IV ASDIRECTED MELISSA Stop: 12/10/20 23:00 Lidocaine/Sodium Bicarbonate (Lidocaine 1%/Sod Bicarbonate In Ns 8.4% 1 Ml Syringe) 0.25 ml IDERM ONETIME PRN PRN Reason: Prior to IV Start Stop: 12/10/20 18:00 Ondansetron HCl (Ondansetron 4 Mg/2 Ml Sdv) 4 mg IVPUSH ONETIME PRN PRN Reason: Nausea/Vomiting Stop: 12/10/20 12:00 Sodium Chloride (Sodium Chloride 0.9% 10 Ml Syringe) 10 ml FLUSH ASDIRECTED PRN PRN Reason: Keep Vein Open Stop: 12/10/20 18:00 Discontinued Medications Bupivacaine HCl (Bupivacaine 0.5% 30 Ml Sdv) Confirm Administered Dose 30 ml .ROUTE .STK-MED ONE Stop: 12/10/20 07:20 Lidocaine/Epinephrine (Lidocaine 1% With Epinephrine 1:100,000 10 Ml Mdv) Confirm Administered Dose 20 ml .ROUTE .STK-MED ONE Stop: 12/10/20 07:20 Scopolamine (Scopolamine 1.5 Mg Transdermal Patch) 1.5 mg TRDERM ONETIME ONE Stop: 12/10/20 07:25
[2020-12-10] MEDS ORDERED: Midazolam 1 MG/ML 2 ML SDV ONE (07:47)
[2020-12-10] MEDS ORDERED: Propofol 200 MG/20 ML SDV ONE (07:47)
[2020-12-10] MEDS ORDERED: fentaNYL 250 MCG/5 ML SDV ONE (07:47)
[2020-12-10] MEDS ORDERED: Lidocaine 1% 4 ML ONE (07:49)
[2020-12-10] MEDS ORDERED: ceFAZolin 1 GM Vial ONE (08:18)
[2020-12-10] MEDS ORDERED: Ondansetron 4 MG/2 ML SDV ONE (08:22)
[2020-12-10] MEDS ORDERED: Dexamethasone 4 MG/ML 5 ML MDV ONE (08:22)
[2020-12-10] MEDS ORDERED: Ketamine 500 mg/10 ML MDV ONE (08:35)
[2020-12-10] MEDS ORDERED: HYDROmorphone 0.5 MG/0.5 ML Syringe ONE ×5 (08:35→11:03)
[2020-12-10] MEDS ORDERED: Lactated Ringers 1,000 ML ONE ×3 (08:45→10:15)
[2020-12-10] MEDS ORDERED: Rocuronium 50 MG/5 ML Vial ONE (09:14)
[2020-12-10] MEDS ORDERED: Ketorolac 15 MG/ML SDV ONE (10:39)
[2020-12-10] MEDS ORDERED: HYDROmorphone 0.5 MG/0.5 ML Syringe IVPUSH PRN (11:16)
[2020-12-10] MEDS ORDERED: fentaNYL 100 MCG/2 ML SDV ONE (11:17)
[2020-12-10] MEDS ORDERED: fentaNYL 100 MCG/2 ML SDV IVPUSH PRN (11:25)
[2020-12-10] MEDS ORDERED: fentaNYL 100 MCG/2 ML SDV IVPUSH ONE (11:30)
--- NOTE | 2020-12-10 11:34 | PCM.POSTAN ---
POST ANESTHESIA ASSESSMENT - MENTAL STATUS Mental Status: Alert - VITAL SIGNS Vital Signs: Last Vital Signs 1108 112/58 100% 78 17 98.3 Temp 36.8 C 12/10/20 11:08 Pulse 83 12/10/20 11:08 Resp 20 12/10/20 11:15 BP 112/58 L 12/10/20 11:15 Pulse Ox 100 12/10/20 11:15 - RESPIRATORY Respiratory Status: Respiratory Rate WNL, Airway Patent, O2 Saturation Stable, Supplemental Oxygen - CARDIOVASCULAR CV Status: Pulse Rate WNL, Blood Pressure Stable - GASTROINTESTINAL GI Status: No Symptoms - PAIN Pain Score: 0 - POST OP HYDRATION Hydration Status: Adequate & Stable
--- NOTE | 2020-12-10 12:23 | CR ---
Abdomen: Portable supine view of the abdomen was obtained. Comparison: No prior abdominal x-ray is available. Scattered gas within small bowel and colon are seen. This is felt to be within normal limits. No IUD is noted. No abnormal calcifications or soft tissue abnormality is seen. Partial transitional segment is seen on the left side at the lumbosacral junction with pseudoarticulation of enlarged left transverse process to the sacrum. No acute abnormality is seen within the osseous structures. Impression: 1. Findings believed to be incidental. 2. Nothing is seen to indicate IUD. Diagnostic code #2
[2020-12-10] MEDS ORDERED: Promethazine 12.5 MG in Sodium Chloride 0.9% 50 ML IV PRN (12:24)
[2020-12-10] MEDS: Morphine 2 MG/ML SYRINGE IVPUSH PRN ×2 (12:46→16:35)
[2020-12-10] MEDS: Lactated Ringers 1,000 ML IV SCH (14:52)
[2020-12-10] MEDS: Ketorolac 30 MG/ML SDV IVPUSH SCH ×2 (16:16→23:53)
[2020-12-10] MEDS: Acetaminophen/oxyCODONE 325-5 MG Tab PO PRN (20:10)
[2020-12-10] MEDS: Docusate Sodium 100 MG Cap PO SCH (20:11)
[2020-12-11] MEDS: Acetaminophen/oxyCODONE 325-5 MG Tab PO PRN ×6 (02:46→20:41)
[2020-12-11] MEDS: Lactated Ringers 1,000 ML IV SCH (05:08)
--- NOTE | 2020-12-11 07:06 | PCM.SURGPN ---
- General Info Date of Service: 12/11/20 POD#: 1 Functional Status: Reports: Pain Controlled, Ambulating - Review of Systems General: Reports: No Symptoms Pulmonary: Reports: No Symptoms Cardiovascular: Reports: No Symptoms Gastrointestinal: Reports: Abdominal Pain (Has required some IV morphine overnight ) Genitourinary: Reports: No Symptoms Musculoskeletal: Reports: No Symptoms Neurological: Reports: No Symptoms - Patient Data Vitals - Most Recent: Last Vital Signs Temp 37.2 C 12/11/20 05:00 Pulse 86 12/11/20 04:56 Resp 18 12/11/20 04:56 BP 123/69 12/11/20 04:56 Pulse Ox 99 12/11/20 04:56 Weight - Most Recent: 59.421 kg I&O - Last 24 Hours: Intake & Output 12/10/20 12/11/20 12/11/20 22:59 06:59 14:59 Intake Total 4300 Output Total 1150 1700 Balance 3150 -1700 Lab Results Last 24 Hrs: Laboratory Results - last 24 hr 12/10/20 12/10/20 12/10/20 Range/Units 06:55 07:20 07:20 WBC 12.60 H (3.98-10.04) K/mm3 RBC 4.54 (3.98-5.22) M/mm3 Hgb 12.0 D (11.2-15.7) gm/dl Hct 38.9 (34.1-44.9) % MCV 85.7 (79.4-94.8) fl MCH 26.4 (25.6-32.2) pg MCHC 30.8 L (32.2-35.5) g/dl RDW Std Deviation 50.5 H (36.4-46.3) fL Plt Count 350 (182-369) K/mm3 MPV 9.0 L (9.4-12.3) fl Neut % (Auto) 79.6 H (34.0-71.1) % Lymph % (Auto) 9.3 L (19.3-51.7) % Reynolds % (Auto) 8.3 (4.7-12.5) % Eos % (Auto) 1.6 (0.7-5.8) Baso % (Auto) 0.4 (0.1-1.2) % Neut # (Auto) 10.04 H (1.56-6.13) K/mm3 Lymph # (Auto) 1.17 L (1.18-3.74) K/mm3 Reynolds # (Auto) 1.04 H (0.24-0.36) K/mm3 Eos # (Auto) 0.20 (0.04-0.36) K/mm3 Baso # (Auto) 0.05 (0.01-0.08) K/mm3 Manual Slide Review Abnormal smear PT 10.7 (9.7-12.0) SECONDS INR 1.00 APTT 26.5 (21.7-31.4) SECONDS Sodium (136-145) mEq/L Potassium (3.5-5.1) mEq/L Chloride (98-107) mEq/L Carbon Dioxide (21-32) mEq/L Anion Gap (5-15) BUN (7-18) mg/dL Creatinine (0.55-1.02) mg/dL Est Cr Clr Drug Dosing mL/min Estimated GFR (MDRD) (>60) mL/min BUN/Creatinine Ratio (14-18) Glucose (74-106) mg/dL Calcium (8.5-10.1) mg/dL Urine HCG, Qual Negative (NEGATIVE) Blood Type Gel Antibody Screen 12/10/20 12/10/20 12/11/20 Range/Units 07:20 07:20 05:25 WBC 20.77 H (3.98-10.04) K/mm3 RBC 3.71 L (3.98-5.22) M/mm3 Hgb 9.7 L D (11.2-15.7) gm/dl Hct 31.3 L (34.1-44.9) % MCV 84.4 (79.4-94.8) fl MCH 26.1 (25.6-32.2) pg MCHC 31.0 L (32.2-35.5) g/dl RDW Std Deviation 48.1 H (36.4-46.3) fL Plt Count 361 (182-369) K/mm3 MPV 9.7 (9.4-12.3) fl Neut % (Auto) (34.0-71.1) % Lymph % (Auto) (19.3-51.7) % Reynolds % (Auto) (4.7-12.5) % Eos % (Auto) (0.7-5.8) Baso % (Auto) (0.1-1.2) % Neut # (Auto) (1.56-6.13) K/mm3 Lymph # (Auto) (1.18-3.74) K/mm3 Reynolds # (Auto) (0.24-0.36) K/mm3 Eos # (Auto) (0.04-0.36) K/mm3 Baso # (Auto) (0.01-0.08) K/mm3 Manual Slide Review PT (9.7-12.0) SECONDS INR APTT (21.7-31.4) SECONDS Sodium 141 (136-145) mEq/L Potassium 3.8 (3.5-5.1) mEq/L Chloride 103 (98-107) mEq/L Carbon Dioxide 24 (21-32) mEq/L Anion Gap 17.8 H (5-15) BUN 9 (7-18) mg/dL Creatinine 0.9 (0.55-1.02) mg/dL Est Cr Clr Drug Dosing 63.09 mL/min Estimated GFR (MDRD) > 60 (>60) mL/min BUN/Creatinine Ratio 10.0 L (14-18) Glucose 99 (74-106) mg/dL Calcium 9.4 (8.5-10.1) mg/dL Urine HCG, Qual (NEGATIVE) Blood Type AB POSITIVE Gel Antibody Screen Negative 12/11/20 Range/Units 05:25 WBC (3.98-10.04) K/mm3 RBC (3.98-5.22) M/mm3 Hgb (11.2-15.7) gm/dl Hct (34.1-44.9) % MCV (79.4-94.8) fl MCH (25.6-32.2) pg MCHC (32.2-35.5) g/dl RDW Std Deviation (36.4-46.3) fL Plt Count (182-369) K/mm3 MPV (9.4-12.3) fl Neut % (Auto) (34.0-71.1) % Lymph % (Auto) (19.3-51.7) % Reynolds % (Auto) (4.7-12.5) % Eos % (Auto) (0.7-5.8) Baso % (Auto) (0.1-1.2) % Neut # (Auto) (1.56-6.13) K/mm3 Lymph # (Auto) (1.18-3.74) K/mm3 Reynolds # (Auto) (0.24-0.36) K/mm3 Eos # (Auto) (0.04-0.36) K/mm3 Baso # (Auto) (0.01-0.08) K/mm3 Manual Slide Review PT (9.7-12.0) SECONDS INR APTT (21.7-31.4) SECONDS Sodium 140 (136-145) mEq/L Potassium 3.7 (3.5-5.1) mEq/L Chloride 105 (98-107) mEq/L Carbon Dioxide 24 (21-32) mEq/L Anion Gap 14.7 (5-15) BUN 6 L (7-18) mg/dL Creatinine 0.7 (0.55-1.02) mg/dL Est Cr Clr Drug Dosing 77.39 mL/min Estimated GFR (MDRD) > 60 (>60) mL/min BUN/Creatinine Ratio 8.6 L (14-18) Glucose 112 H (74-106) mg/dL Calcium 8.7 (8.5-10.1) mg/dL Urine HCG, Qual (NEGATIVE) Blood Type Gel Antibody Screen Med Orders - Current: Current Medications Docusate Sodium (Docusate Sodium 100 Mg Cap) 100 mg PO BID MELISSA Last Admin: 12/10/20 20:11 Dose: 100 mg Documented by: Promethazine HCl 12.5 mg/ (Sodium Chloride) 50.5 mls @ 200 mls/hr IV Q6H PRN PRN Reason: Nausea/Vomiting Morphine Sulfate (Morphine 2 Mg/Ml Syringe) 2 mg IVPUSH Q2H PRN PRN Reason: Pain (severe 7-10) Last Admin: 12/10/20 16:35 Dose: 2 mg Documented by: Ondansetron HCl (Ondansetron 4 Mg/2 Ml Sdv) 4 mg IVPUSH Q4H PRN PRN Reason: Nausea/Vomiting Oxycodone/Acetaminophen (Acetaminophen/Oxycodone 325-5 Mg Tab) 1 tab PO Q4H PRN PRN Reason: Pain (moderate 4-6) Last Admin: 12/11/20 02:46 Dose: 1 tab Documented by: Oxycodone/Acetaminophen (Acetaminophen/Oxycodone 325-5 Mg Tab) 2 tab PO Q4H PRN PRN Reason: Pain (severe 7-10) Last Admin: 12/11/20 06:30 Dose: 2 tab Documented by: Discontinued Medications Bupivacaine HCl (Bupivacaine 0.5% 30 Ml Sdv) Confirm Administered Dose 30 ml .ROUTE .STK-MED ONE Stop: 12/10/20 07:20 Last Admin: 12/10/20 08:26 Dose: 6 ml Documented by: Cefazolin Sodium (Cefazolin 1 Gm Vial) Confirm Administered Dose 2 gm .ROUTE .STK-MED ONE Stop: 12/10/20 08:19 Dexamethasone (Dexamethasone 4 Mg/Ml 5 Ml Mdv) Confirm Administered Dose 20 mg .ROUTE .STK-MED ONE Stop: 12/10/20 08:23 Fentanyl (Fentanyl 250 Mcg/5 Ml Sdv) Confirm Administered Dose 250 mcg .ROUTE .STK-MED ONE Stop: 12/10/20 07:48 Fentanyl (Fentanyl 100 Mcg/2 Ml Sdv) Confirm Administered Dose 100 mcg .ROUTE .STK-MED ONE Stop: 12/10/20 11:18 Last Admin: 12/10/20 11:35 Dose: Not Given Documented by: Fentanyl (Fentanyl 100 Mcg/2 Ml Sdv) 100 mcg IVPUSH ONETIME ONE Stop: 12/10/20 11:31 Last Admin: 12/10/20 11:30 Dose: 100 mcg Documented by: Fentanyl (Fentanyl 100 Mcg/2 Ml Sdv) 50 mcg IVPUSH Q5M PRN PRN Reason: Pain Stop: 12/10/20 18:00 Last Admin: 12/10/20 11:41 Dose: 50 mcg Documented by: Glycopyrrolate (Glycopyrrolate 0.2 Mg/Ml 2 Ml Syringe) Confirm Administered Dose 0.8 mg .ROUTE .STK-MED ONE Stop: 12/10/20 08:23 Hydromorphone HCl (Hydromorphone 0.5 Mg/0.5 Ml Syringe) Confirm Administered Dose 0.5 mg .ROUTE .STK-MED ONE Stop: 12/10/20 08:36 Hydromorphone HCl (Hydromorphone 0.5 Mg/0.5 Ml Syringe) Confirm Administered Dose 0.5 mg .ROUTE .STK-MED ONE Stop: 12/10/20 09:16 Hydromorphone HCl (Hydromorphone 0.5 Mg/0.5 Ml Syringe) Confirm Administered Do se 0.5 mg .ROUTE .STK-MED ONE Stop: 12/10/20 09:35 Hydromorphone HCl (Hydromorphone 0.5 Mg/0.5 Ml Syringe) Confirm Administered Dose 0.5 mg .ROUTE .STK-MED ONE Stop: 12/10/20 10:15 Hydromorphone HCl (Hydromorphone 0.5 Mg/0.5 Ml Syringe) Confirm Administered Dose 0.5 mg .ROUTE .STK-MED ONE Stop: 12/10/20 11:04 Hydromorphone HCl (Hydromorphone 0.5 Mg/0.5 Ml Syringe) 0.5 mg IVPUSH Q1H PRN PRN Reason: Pain Stop: 12/10/20 18:00 Last Admin: 12/10/20 11:25 Dose: 0.5 mg Documented by: Lactated Ringer's (Ringers, Lactated) 1,000 mls @ 125 mls/hr IV ASDIRECTED [facility] Stop: 12/10/20 23:00 Last Admin: 12/10/20 07:22 Dose: 125 mls/hr Documented by: Lidocaine HCl (Xylocaine-Mpf 1%) Confirm Administered Dose 4 mls @ as directed .ROUTE .STK-MED ONE Stop: 12/10/20 07:50 Lactated Ringer's (Ringers, Lactated) Confirm Administered Dose 1,000 mls @ as directed .ROUTE .STK-MED ONE Stop: 12/10/20 08:46 Lactated Ringer's (Ringers, Lactated) Confirm Administered Dose 1,000 mls @ as directed .ROUTE .STK-MED ONE Stop: 12/10/20 08:47 Lactated Ringer's (Ringers, Lactated) Confirm Administered Dose 1,000 mls @ as directed .ROUTE .STK-MED ONE Stop: 12/10/20 10:16 Lactated Ringer's (Ringers, Lactated) 1,000 mls @ 75 mls/hr IV ASDIRECTED [facility] Last Admin: 12/11/20 05:08 Dose: 75 mls/hr Documented by: Ketamine HCl (Ketamine 500 Mg/10 Ml Mdv) Confirm Administered Dose 500 mg .ROUTE .STK-MED ONE Stop: 12/10/20 08:36 Ketorolac Tromethamine (Ketorolac 15 Mg/Ml Sdv) Confirm Administered Dose 15 mg .ROUTE .STK-MED ONE Stop: 12/10/20 10:40 Ketorolac Tromethamine (Ketorolac 30 Mg/Ml Sdv) 30 mg IVPUSH Q6H MELISSA Stop: 12/10/20 22:46 Last Admin: 12/10/20 23:53 Dose: 30 mg Documented by: Lidocaine/Epinephrine (Lidocaine 1% With Epinephrine 1:100,000 10 Ml Mdv) Confirm Administered Dose 20 ml .ROUTE [employer]-MED ONE Stop: 12/10/20 07:20 Lidocaine/Sodium Bicarbonate (Lidocaine 1%/Sod Bicarbonate In Ns 8.4% 1 Ml Syringe) 0.25 ml IDERM ONETIME PRN PRN Reason: Prior to IV Start Stop: 12/10/20 18:00 Last Admin: 12/10/20 07:20 Dose: 0.25 ml Documented by: Midazolam HCl (Midazolam 1 Mg/Ml 2 Ml Sdv) Confirm Administered Dose 2 mg .ROUTE [employer]-MED ONE Stop: 12/10/20 07:48 Miscellaneous Medication (Phenylephrine Hcl In 0.9% Nacl 1 Mg/10 Ml Syringe) Confirm Administered Dose 0 mg .ROUTE .STK-MED ONE Stop: 12/10/20 09:15 Neostigmine Methylsulfate (Neostigmine Methylsulfate 5 Mg/5 Ml Syringe) Confirm Administered Dose 5 mg .ROUTE [employer]-MED ONE Stop: 12/10/20 08:56 Ondansetron HCl (Ondansetron 4 Mg/2 Ml Sdv) 4 mg IVPUSH ONETIME PRN PRN Reason: Nausea/Vomiting Stop: 12/10/20 12:00 Ondansetron HCl (Ondansetron 4 Mg/2 Ml Sdv) Confirm Administered Dose 4 mg .ROUTE .STK-MED ONE Stop: 12/10/20 08:23 Ondansetron HCl (Ondansetron 4 Mg/2 Ml Sdv) 4 mg IVPUSH ONETIME PRN PRN Reason: Nausea/Vomiting Stop: 12/10/20 18:00 Propofol (Propofol 200 Mg/20 Ml Sdv) Confirm Administered Dose 400 mg .ROUTE .STK-MED ONE Stop: 12/10/20 07:48 Rocuronium [place] (Rocuronium 50 Mg/5 Ml Vial) Confirm Administered Dose 50 mg .ROUTE .STK-MED ONE Stop: 12/10/20 09:15 Scopolamine (Scopolamine 1.5 Mg Transdermal Patch) 1.5 mg TRDERM ONETIME ONE Stop: 12/10/20 07:25 Last Admin: 12/10/20 07:44 Dose: 1.5 mg Documented by: Sodium Chloride (Sodium Chloride 0.9% 10 Ml Syringe) 10 ml FLUSH ASDIRECTED PRN PRN Reason: Keep Vein Open Stop: 12/10/20 18:00 - Exam General: Alert, Oriented, Cooperative Lungs: Clear to Auscultation, Normal Respiratory Effort Cardiovascular: Regular Rate, Regular Rhythm GI/Abdominal Exam: Soft, Tender (seems appropraite post op) Extremities: Normal Inspection Sepsis Event Note - Evaluation Sepsis Screening Result: No Definite Risk - Focused Exam Vital Signs: Vital Signs Temp Temp Pulse Resp BP Pulse Ox 12/11/20 05:00 37.2 C 12/11/20 04:56 37.2 C 86 18 123/69 99 12/10/20 23:58 37.3 C 77 18 129/71 99 12/10/20 20:20 37.4 C 77 20 130/69 100 - Problem List & Annotations (1) History of abdominal hysterectomy SNOMED Code(s): 573292943, 969709788 Code(s): Z90.710 - ACQUIRED ABSENCE OF BOTH CERVIX AND UTERUS Status: Acute Current Visit: Yes (2) Abnormal uterine bleeding SNOMED Code(s): 80611277288199 Code(s): N93.9 - ABNORMAL UTERINE AND VAGINAL BLEEDING, UNSPECIFIED Status: Acute Current Visit: No (3) At risk for hemorrhage associated with anticoagulation therapy SNOMED Code(s): 010574213, 048605670 Code(s): Z91.89 - OTH PERSONAL RISK FACTORS, NOT ELSEWHERE CLASSIFIED Status: Acute Current Visit: No - Problem List Review Problem List Initiated/Reviewed/Updated: Yes - My Orders Last 24 Hours: Active Orders 24 hr Category Date Time Status Patient Status [ADT] Routine ADT 12/10/20 12:24 Active Antiembolic Devices [RC] PER UNIT ROUTINE Care 12/10/20 12:24 Active Intake and Output [RC] Q4HR Care 12/10/20 12:24 Active Notify Provider Vital Signs [RC] ASDIRECTED Care 12/10/20 12:24 Active RT Incentive Spirometry [RC] Q2HWA Care 12/10/20 12:24 Active Up ad Jessie [RC] PER UNIT ROUTINE Care 12/10/20 12:24 Active Urinary Catheter Removal [RC] PER UNIT ROUTINE Care 12/11/20 07:00 Active Vital Signs [RC] Q4HR Care 12/10/20 12:24 Active Regular Diet [DIET] Diet 12/10/20 Lunch Active Acetaminophen/oxyCODONE [Percocet 325-5 MG] Med 12/10/20 12:24 Active 1 tab PO Q4H PRN Acetaminophen/oxyCODONE [Percocet 325-5 MG] Med 12/10/20 12:24 Active 2 tab PO Q4H PRN Docusate Sodium [Colace] Med 12/10/20 21:00 Active 100 mg PO BID Lactated Ringers [Ringers, Lactated] 1,000 ml Med 12/10/20 12:24 Stop Req IV ASDIRECTED Morphine Med 12/10/20 12:24 Active 2 mg IVPUSH Q2H PRN Ondansetron [Zofran] Med 12/10/20 12:24 Active 4 mg IVPUSH Q4H PRN Promethazine [Phenergan] 12.5 mg Med 12/10/20 12:24 Active Sodium Chloride 0.9% [Normal Saline] 50 ml IV Q6H Sequential Compression Device [OM.PC] Per Unit Routine Oth 12/10/20 12:24 Ordered Resuscitation Status Routine Resus Stat 12/10/20 11:17 Ordered Medication Orders Docusate Sodium (Docusate Sodium 100 Mg Cap) 100 mg PO BID MELISSA Last Admin: 12/10/20 20:11 Dose: 100 mg Documented by: PATRICIA Promethazine HCl 12.5 mg/ (Sodium Chloride) 50.5 mls @ 200 mls/hr IV Q6H PRN PRN Reason: Nausea/Vomiting Morphine Sulfate (Morphine 2 Mg/Ml Syringe) 2 mg IVPUSH Q2H PRN PRN Reason: Pain (severe 7-10) Last Admin: 12/10/20 16:35 Dose: 2 mg Documented by: Admin: 12/10/20 12:46 Dose: 2 mg Documented by: ABRAN Ondansetron HCl (Ondansetron 4 Mg/2 Ml Sdv) 4 mg IVPUSH Q4H PRN PRN Reason: Nausea/Vomiting Oxycodone/Acetaminophen (Acetaminophen/Oxycodone 325-5 Mg Tab) 1 tab PO Q4H PRN PRN Reason: Pain (moderate 4-6) Last Admin: 12/11/20 02:46 Dose: 1 tab Documented by: PATRICIA Oxycodone/Acetaminophen (Acetaminophen/Oxycodone 325-5 Mg Tab) 2 tab PO Q4H PRN PRN Reason: Pain (severe 7-10) Last Admin: 12/11/20 06:30 Dose: 2 tab Documented by: Admin: 12/10/20 20:10 Dose: 2 tab Documented by: PATRICIA - Assessment Assessment (Free Text/Narrative):: POD#1 - Plan Plan (Free Text/Narrative):: * Transition more to oral medications to manage pain * SLIV, encourage PO intake * Catheter to be removed * CBC appropriate today, will recheck POD#2 and restart home anticoagulation POD#2 * Discharge home in 1-2 days
--- NOTE | 2020-12-11 07:24 | PCM48HPAN ---
Post Anesthesia Note - EVALUATION WITHIN 48HRS OF ANESTHETIC Vital Signs in Normal Range: Yes Patient Participated in Evaluation: Yes Respiratory Function Stable: Yes Airway Patent: Yes Cardiovascular Function Stable: Yes Hydration Status Stable: Yes Pain Control Satisfactory: Yes Nausea and Vomiting Control Satisfactory: Yes (Had nausea last eveing- better today) Mental Status Recovered: Yes Vital Signs: Last Vital Signs Temp 98.9 F 12/11/20 05:00 Pulse 86 12/11/20 04:56 Resp 18 12/11/20 04:56 BP 123/69 12/11/20 04:56 Pulse Ox 99 12/11/20 04:56
[2020-12-11] MEDS: Docusate Sodium 100 MG Cap PO SCH ×2 (08:16→20:40)
[2020-12-11] MEDS ORDERED: Simethicone 80 MG Tab.Chew PO PRN (19:51)
[2020-12-12] MEDS: Acetaminophen/oxyCODONE 325-5 MG Tab PO PRN ×2 (01:14→05:18)
--- NOTE | 2020-12-12 07:27 | PCM.SURGPN ---
- General Info Date of Service: 12/12/20 POD#: 2 Functional Status: Reports: Pain Controlled, Tolerating Diet (no nausea or vomiting, but does endorse low appetite ), Ambulating, Urinating - Review of Systems General: Reports: No Symptoms Pulmonary: Reports: No Symptoms Cardiovascular: Reports: No Symptoms Gastrointestinal: Reports: Abdominal Pain (managed with medications ) Genitourinary: Reports: No Symptoms Musculoskeletal: Reports: No Symptoms - Patient Data Vitals - Most Recent: Last Vital Signs Temp 36.5 C 12/12/20 03:42 Pulse 79 12/12/20 03:42 Resp 16 12/12/20 03:42 BP 122/65 12/12/20 03:42 Pulse Ox 97 12/12/20 03:42 Weight - Most Recent: 58.627 kg I&O - Last 24 Hours: Intake & Output 12/11/20 12/12/20 12/12/20 22:59 06:59 14:59 Intake Total 0 Output Total 700 500 Balance -700 -500 Med Orders - Current: Current Medications Docusate Sodium (Docusate Sodium 100 Mg Cap) 100 mg PO BID MELISSA Last Admin: 12/11/20 20:40 Dose: 100 mg Documented by: Promethazine HCl 12.5 mg/ (Sodium Chloride) 50.5 mls @ 200 mls/hr IV Q6H PRN PRN Reason: Nausea/Vomiting Ondansetron HCl (Ondansetron 4 Mg/2 Ml Sdv) 4 mg IVPUSH Q4H PRN PRN Reason: Nausea/Vomiting Oxycodone/Acetaminophen (Acetaminophen/Oxycodone 325-5 Mg Tab) 1 tab PO Q4H PRN PRN Reason: Pain (moderate 4-6) Last Admin: 12/11/20 12:16 Dose: 1 tab Documented by: Oxycodone/Acetaminophen (Acetaminophen/Oxycodone 325-5 Mg Tab) 2 tab PO Q4H PRN PRN Reason: Pain (severe 7-10) Last Admin: 12/12/20 05:18 Dose: 2 tab Documented by: Simethicone (Simethicone 80 Mg Tab.Chew) 80 mg PO ASDIRECTED PRN PRN Reason: Abdominal Pain Last Admin: 12/11/20 20:41 Dose: 80 mg Documented by: Discontinued Medications Bupivacaine HCl (Bupivacaine 0.5% 30 Ml Sdv) Confirm Administered Dose 30 ml .ROUTE .STK-MED ONE Stop: 12/10/20 07:20 Last Admin: 12/10/20 08:26 Dose: 6 ml Documented by: Cefazolin Sodium (Cefazolin 1 Gm Vial) Confirm Administered Dose 2 gm .ROUTE .STK-MED ONE Stop: 12/10/20 08:19 Dexamethasone (Dexamethasone 4 Mg/Ml 5 Ml Mdv) Confirm Administered Dose 20 mg .ROUTE .STK-MED ONE Stop: 12/10/20 08:23 Fentanyl (Fentanyl 250 Mcg/5 Ml Sdv) Confirm Administered Dose 250 mcg .ROUTE .STK-MED ONE Stop: 12/10/20 07:48 Fentanyl (Fentanyl 100 Mcg/2 Ml Sdv) Confirm Administered Dose 100 mcg .ROUTE .STK-MED ONE Stop: 12/10/20 11:18 Last Admin: 12/10/20 11:35 Dose: Not Given Documented by: Fentanyl (Fentanyl 100 Mcg/2 Ml Sdv) 100 mcg IVPUSH ONETIME ONE Stop: 12/10/20 11:31 Last Admin: 12/10/20 11:30 Dose: 100 mcg Documented by: Fentanyl (Fentanyl 100 Mcg/2 Ml Sdv) 50 mcg IVPUSH Q5M PRN PRN Reason: Pain Stop: 12/10/20 18:00 Last Admin: 12/10/20 11:41 Dose: 50 mcg Documented by: Glycopyrrolate (Glycopyrrolate 0.2 Mg/Ml 2 Ml Syringe) Confirm Administered Dose 0.8 mg .ROUTE .STK-MED ONE Stop: 12/10/20 08:23 Hydromorphone HCl (Hydromorphone 0.5 Mg/0.5 Ml Syringe) Confirm Administered Dose 0.5 mg .ROUTE .STK-MED ONE Stop: 12/10/20 08:36 Hydromorphone HCl (Hydromorphone 0.5 Mg/0.5 Ml Syringe) Confirm Administered Dose 0.5 mg .ROUTE .STK-MED ONE Stop: 12/10/20 09:16 Hydromorphone HCl (Hydromorphone 0.5 Mg/0.5 Ml Syringe) Confirm Administered Dose 0.5 mg .ROUTE .STK-MED ONE Stop: 12/10/20 09:35 Hydromorphone HCl (Hydromorphone 0.5 Mg/0.5 Ml Syringe) Confirm Administered Dose 0.5 mg .ROUTE .STK-MED ONE Stop: 12/10/20 10:15 Hydromorphone HCl (Hydromorphone 0.5 Mg/0.5 Ml Syringe) Confirm Administered Dose 0.5 mg .ROUTE .STK-MED ONE Stop: 12/10/20 11:04 Hydromorphone HCl (Hydromorphone 0.5 Mg/0.5 Ml Syringe) 0.5 mg IVPUSH Q1H PRN PRN Reason: Pain Stop: 12/10/20 18:00 Last Admin: 12/10/20 11:25 Dose: 0.5 mg Documented by: Lactated Ringer's (Ringers, Lactated) 1,000 mls @ 125 mls/hr IV ASDIRECTED [facility] Stop: 12/10/20 23:00 Last Admin: 12/10/20 07:22 Dose: 125 mls/hr Documented by: Lidocaine HCl (Xylocaine-Mpf 1%) Confirm Administered Dose 4 mls @ as directed .ROUTE .ST-MED ONE Stop: 12/10/20 07:50 Lactated Ringer's (Ringers, Lactated) Confirm Administered Dose 1,000 mls @ as directed .ROUTE .STK-MED ONE Stop: 12/10/20 08:46 Lactated Ringer's (Ringers, Lactated) Confirm Administered Dose 1,000 mls @ as directed .ROUTE .STK-MED ONE Stop: 12/10/20 08:47 Lactated Ringer's (Ringers, Lactated) Confirm Administered Dose 1,000 mls @ as directed .ROUTE .STK-MED ONE Stop: 12/10/20 10:16 Lactated Ringer's (Ringers, Lactated) 1,000 mls @ 75 mls/hr IV ASDIRECTED [facility] Last Admin: 12/11/20 05:08 Dose: 75 mls/hr Documented by: Ketamine HCl (Ketamine 500 Mg/10 Ml Mdv) Confirm Administered Dose 500 mg .ROUTE .STK-MED ONE Stop: 12/10/20 08:36 Ketorolac Tromethamine (Ketorolac 15 Mg/Ml Sdv) Confirm Administered Dose 15 mg .ROUTE .STK-MED ONE Stop: 12/10/20 10:40 Ketorolac Tromethamine (Ketorolac 30 Mg/Ml Sdv) 30 mg IVPUSH Q6H MELISSA Stop: 12/10/20 22:46 Last Admin: 12/10/20 23:53 Dose: 30 mg Documented by: Lidocaine/Epinephrine (Lidocaine 1% With Epinephrine 1:100,000 10 Ml Mdv) Confirm Administered Dose 20 ml .ROUTE .STK-MED ONE Stop: 12/10/20 07:20 Lidocaine/Sodium Bicarbonate (Lidocaine 1%/Sod Bicarbonate In Ns 8.4% 1 Ml Syringe) 0.25 ml IDERM ONETIME PRN PRN Reason: Prior to IV Start Stop: 12/10/20 18:00 Last Admin: 12/10/20 07:20 Dose: 0.25 ml Documented by: Midazolam HCl (Midazolam 1 Mg/Ml 2 Ml Sdv) Confirm Administered Dose 2 mg .ROUTE .STK-MED ONE Stop: 12/10/20 07:48 Miscellaneous Medication (Phenylephrine Hcl In 0.9% Nacl 1 Mg/10 Ml Syringe) Confirm Administered Dose 0 mg .ROUTE .STK-MED ONE Stop: 12/10/20 09:15 Morphine Sulfate (Morphine 2 Mg/Ml Syringe) 2 mg IVPUSH Q2H PRN PRN Reason: Pain (severe 7-10) Last Admin: 12/10/20 16:35 Dose: 2 mg Documented by: Neostigmine Methylsulfate (Neostigmine Methylsulfate 5 Mg/5 Ml Syringe) Confirm Administered Dose 5 mg .ROUTE .STK-MED ONE Stop: 12/10/20 08:56 Ondansetron HCl (Ondansetron 4 Mg/2 Ml Sdv) 4 mg IVPUSH ONETIME PRN PRN Reason: Nausea/Vomiting Stop: 12/10/20 12:00 Ondansetron HCl (Ondansetron 4 Mg/2 Ml Sdv) Confirm Administered Dose 4 mg .ROUTE .STK-MED ONE Stop: 12/10/20 08:23 Ondansetron HCl (Ondansetron 4 Mg/2 Ml Sdv) 4 mg IVPUSH ONETIME PRN PRN Reason: Nausea/Vomiting Stop: 12/10/20 18:00 Propofol (Propofol 200 Mg/20 Ml Sdv) Confirm Administered Dose 400 mg .ROUTE .STK-MED ONE Stop: 12/10/20 07:48 Rocuronium [place] (Rocuronium 50 Mg/5 Ml Vial) Confirm Administered Dose 50 mg .ROUTE .STK-MED ONE Stop: 12/10/20 09:15 Scopolamine (Scopolamine 1.5 Mg Transdermal Patch) 1.5 mg TRDERM ONETIME ONE Stop: 12/10/20 07:25 Last Admin: 12/10/20 07:44 Dose: 1.5 mg Documented by: Sodium Chloride (Sodium Chloride 0.9% 10 Ml Syringe) 10 ml FLUSH ASDIRECTED PRN PRN Reason: Keep Vein Open Stop: 12/10/20 18:00 - Exam Wound/Incisions: Healing Well, No Drainage Lungs: Clear to Auscultation, Normal Respiratory Effort Cardiovascular: Regular Rate, Regular Rhythm GI/Abdominal Exam: Soft, Tender (appropriate ) Extremities: Normal Inspection Skin: Warm, Dry, Intact Sepsis Event Note - Evaluation Sepsis Screening Result: No Definite Risk - Focused Exam Vital Signs: Vital Signs Temp Pulse Resp BP Pulse Ox 12/12/20 03:42 36.5 C 79 16 122/65 97 12/12/20 00:20 36.6 C 74 15 116/62 98 12/11/20 20:41 36.4 C 76 132/73 98 12/11/20 20:34 16 - Problem List & Annotations (1) History of abdominal hysterectomy SNOMED Code(s): 149317142, 053066993 Code(s): Z90.710 - ACQUIRED ABSENCE OF BOTH CERVIX AND UTERUS Status: Acute (2) Abnormal uterine bleeding SNOMED Code(s): 04924577703278 Code(s): N93.9 - ABNORMAL UTERINE AND VAGINAL BLEEDING, UNSPECIFIED Status: Acute (3) At risk for hemorrhage associated with anticoagulation therapy SNOMED Code(s): 743613042, 362287011 Code(s): Z91.89 - OTH PERSONAL RISK FACTORS, NOT ELSEWHERE CLASSIFIED Status: Acute - Problem List Review Problem List Initiated/Reviewed/Updated: Yes - My Orders Last 24 Hours: Active Orders 24 hr Category Date Time Status Ready for Discharge [RC] PER UNIT ROUTINE Care 12/12/20 07:25 Active Consult to Dietary [Consult to Glacing Machine Tender] [CONS] Cons 12/11/20 14:56 Active Routine Regular Diet [DIET] Diet 12/11/20 Dinner Active CBC W/O DIFF,HEMOGRAM [HEME] Stat Lab 12/12/20 06:36 Ordered Simethicone Med 12/11/20 19:51 Active 80 mg PO ASDIRECTED PRN Medication Orders Docusate Sodium (Docusate Sodium 100 Mg Cap) 100 mg PO BID MELISSA Last Admin: 12/11/20 20:40 Dose: 100 mg Documented by: Admin: 12/11/20 08:16 Dose: 100 mg Documented by: Admin: 12/10/20 20:11 Dose: 100 mg Documented by: PATRICIA Promethazine HCl 12.5 mg/ (Sodium Chloride) 50.5 mls @ 200 mls/hr IV Q6H PRN PRN Reason: Nausea/Vomiting Ondansetron HCl (Ondansetron 4 Mg/2 Ml Sdv) 4 mg IVPUSH Q4H PRN PRN Reason: Nausea/Vomiting Oxycodone/Acetaminophen (Acetaminophen/Oxycodone 325-5 Mg Tab) 1 tab PO Q4H PRN PRN Reason: Pain (moderate 4-6) Last Admin: 12/11/20 12:16 Dose: 1 tab Documented by: Admin: 12/11/20 11:05 Dose: 1 tab Documented by: Admin: 12/11/20 02:46 Dose: 1 tab Documented by: PATRICIA Oxycodone/Acetaminophen (Acetaminophen/Oxycodone 325-5 Mg Tab) 2 tab PO Q4H PRN PRN Reason: Pain (severe 7-10) Last Admin: 12/12/20 05:18 Dose: 2 tab Documented by: Admin: 12/12/20 01:14 Dose: 2 tab Documented by: Admin: 12/11/20 20:41 Dose: 2 tab Documented by: Admin: 12/11/20 16:33 Dose: 2 tab Documented by: Admin: 12/11/20 06:30 Dose: 2 tab Documented by: Admin: 12/10/20 20:10 Dose: 2 tab Documented by: PATRICIA Simethicone (Simethicone 80 Mg Tab.Chew) 80 mg PO ASDIRECTED PRN PRN Reason: Abdominal Pain Last Admin: 12/11/20 20:41 Dose: 80 mg Documented by: JOSH - Assessment Assessment (Free Text/Narrative):: POD#2 - Plan Plan (Free Text/Narrative):: * Routine cares * Blood count stable this AM compared to yesterday's value. Will have patient restart Xarelto today. Prefers to take her own medication at home. Usually takes dose at 0600, but should be able to take today's dose by 0900. * Patient to continue her iron on discharge * Reviewed need to keep stool softener in regimen given use of pain medication, iron, and abdominal surgery * Follow up in 3 weeks. Return sooner if any other concerns
--- NOTE | 2020-12-12 08:20 | PCM.DCSUM1 ---
Discharge Summary - Discharge Data Discharge Date: 12/12/20 Discharge Disposition: Home, Self-Care 01 Condition: Good - Referral to Home Health Primary Care Physician: Vicki Torres MD - Discharge Diagnosis/Problem(s) (1) History of abdominal hysterectomy SNOMED Code(s): 585941715, [id number] ICD Code: Z90.710 - ACQUIRED ABSENCE OF BOTH CERVIX AND UTERUS Status: Acute (2) Abnormal uterine bleeding SNOMED Code(s): 50039120648789 ICD Code: N93.9 - ABNORMAL UTERINE AND VAGINAL BLEEDING, UNSPECIFIED Status: Acute (3) At risk for hemorrhage associated with anticoagulation therapy SNOMED Code(s): 063374914, 235500126 ICD Code: Z91.89 - OTH PERSONAL RISK FACTORS, NOT ELSEWHERE CLASSIFIED Status: Acute - Patient Summary/Data Operative Procedure(s) Performed: Diagnostic laparoscopy. Exploratory laparotomy. Lysis of adhesions. Abdominal hysterectomy Complications: None Consults: Consultations 12/11/20 14:56 Consult to Dietary [Consult to Well Service Derrick Worker] [CONS] Routine Recommended Follow-up Testing/Procedures: Follow up in 3 weeks Hospital Course: 44 y/o woman with significant abnormal uterine bleeding requiring multiple transfusions and stabilization with [place]. Bleeding thought to be aggravated by patient's chronic anticoagulation. Eventually once stabilized was taken for definitive surgery. Patient known to have extensive adhesive disease at last surgery and this was found again with initial laparoscopic evaluation. See operative note. Patient eventually underwent DULCE with extensive AISLINN. Postoperatively she did well. Was discharged home on POD#2 and was to restart her Xarelto on POD#2. Will follow up in clinic in 3 weeks - Patient Instructions Diet: Regular Diet as Tolerated Activity: No Lifting Over 10 Pounds Activity, Other: Pelvic rest for 6 weeks Driving: Do Not Drive (While taking percocet ) Showering/Bathing: May Shower, No Tub Bathing/Swimming Wound/Incision Care: Keep Operative Site/Wound Site Clean and Dry Notify Provider of: Fever, Increased Pain, Swelling and Redness, Drainage, Nausea and/or Vomiting - Discharge Plan *PRESCRIPTION DRUG MONITORING PROGRAM REVIEWED*: No *COPY OF PRESCRIPTION DRUG MONITORING REPORT IN PATIENT SEN: No Prescriptions/Med Rec: Acetaminophen/oxyCODONE [Percocet 325-5 MG] 1 - 2 tab PO Q6HR PRN #10 tablet PRN Reason: Pain (Severe 7-10) Home Medications: Home Meds Rivaroxaban [Xarelto] 20 mg PO DAILY 11/09/20 [History] Acetaminophen/oxyCODONE [Percocet 325-5 MG] 1 - 2 tab PO Q6HR PRN #10 tablet 12/12/20 [Rx] Docusate Sodium [Colace] 100 mg PO BID cap 12/12/20 [Rx] Patient Handouts: Abdominal Hysterectomy, Care After, [id number], Total Laparoscopic Hysterectomy, Care After Referrals: Peggy Romero MD [Physician] - (3 weeks for post op ) - Discharge Summary/Plan Comment DC Time >30 min.: No - Patient Data Vitals - Most Recent: Last Vital Signs Temp 36.5 C 12/12/20 03:42 Pulse 79 12/12/20 03:42 Resp 16 12/12/20 03:42 BP 122/65 12/12/20 03:42 Pulse Ox 97 12/12/20 03:42 Weight - Most Recent: 58.627 kg I&O - Last 24 hours: Intake & Output 12/11/20 12/12/20 12/12/20 22:59 06:59 14:59 Intake Total 0 Output Total 700 500 Balance -700 -500 Lab Results - Last 24 hrs: Laboratory Results - last 24 hr 12/12/20 Range/Units 07:35 WBC 12.84 H (3.98-10.04) K/mm3 RBC 3.57 L (3.98-5.22) M/mm3 Hgb 9.4 L (11.2-15.7) gm/dl Hct 30.6 L (34.1-44.9) % MCV 85.7 (79.4-94.8) fl MCH 26.3 (25.6-32.2) pg MCHC 30.7 L (32.2-35.5) g/dl RDW Std Deviation 48.3 H (36.4-46.3) fL Plt Count 318 (182-369) K/mm3 MPV 9.2 L (9.4-12.3) fl Med Orders - Current: Current Medications Docusate Sodium (Docusate Sodium 100 Mg Cap) 100 mg PO BID MELISSA Last Admin: 12/11/20 20:40 Dose: 100 mg Documented by: Promethazine HCl 12.5 mg/ (Sodium Chloride) 50.5 mls @ 200 mls/hr IV Q6H PRN PRN Reason: Nausea/Vomiting Ondansetron HCl (Ondansetron 4 Mg/2 Ml Sdv) 4 mg IVPUSH Q4H PRN PRN Reason: Nausea/Vomiting Oxycodone/Acetaminophen (Acetaminophen/Oxycodone 325-5 Mg Tab) 1 tab PO Q4H PRN PRN Reason: Pain (moderate 4-6) Last Admin: 12/11/20 12:16 Dose: 1 tab Documented by: Oxycodone/Acetaminophen (Acetaminophen/Oxycodone 325-5 Mg Tab) 2 tab PO Q4H PRN PRN Reason: Pain (severe 7-10) Last Admin: 12/12/20 05:18 Dose: 2 tab Documented by: Simethicone (Simethicone 80 Mg Tab.Chew) 80 mg PO ASDIRECTED PRN PRN Reason: Abdominal Pain Last Admin: 12/11/20 20:41 Dose: 80 mg Documented by: Discontinued Medications Bupivacaine HCl (Bupivacaine 0.5% 30 Ml Sdv) Confirm Administered Dose 30 ml .ROUTE .STK-MED ONE Stop: 12/10/20 07:20 Last Admin: 12/10/20 08:26 Dose: 6 ml Documented by: Cefazolin Sodium (Cefazolin 1 Gm Vial) Confirm Administered Dose 2 gm .ROUTE .STK-MED ONE Stop: 12/10/20 08:19 Dexamethasone (Dexamethasone 4 Mg/Ml 5 Ml Mdv) Confirm Administered Dose 20 mg .ROUTE .STK-MED ONE Stop: 12/10/20 08:23 Fentanyl (Fentanyl 250 Mcg/5 Ml Sdv) Confirm Administered Dose 250 mcg .ROUTE .STK-MED ONE Stop: 12/10/20 07:48 Fentanyl (Fentanyl 100 Mcg/2 Ml Sdv) Confirm Administered Dose 100 mcg .ROUTE .STK-MED ONE Stop: 12/10/20 11:18 Last Admin: 12/10/20 11:35 Dose: Not Given Documented by: Fentanyl (Fentanyl 100 Mcg/2 Ml Sdv) 100 mcg IVPUSH ONETIME ONE Stop: 12/10/20 11:31 Last Admin: 12/10/20 11:30 Dose: 100 mcg Documented by: Fentanyl (Fentanyl 100 Mcg/2 Ml Sdv) 50 mcg IVPUSH Q5M PRN PRN Reason: Pain Stop: 12/10/20 18:00 Last Admin: 12/10/20 11:41 Dose: 50 mcg Documented by: Glycopyrrolate (Glycopyrrolate 0.2 Mg/Ml 2 Ml Syringe) Confirm Administered Dose 0.8 mg .ROUTE .STK-MED ONE Stop: 12/10/20 08:23 Hydromorphone HCl (Hydromorphone 0.5 Mg/0.5 Ml Syringe) Confirm Administered Dose 0.5 mg .ROUTE .STK-MED ONE Stop: 12/10/20 08:36 Hydromorphone HCl (Hydromorphone 0.5 Mg/0.5 Ml Syringe) Confirm Administered Dose 0.5 mg .ROUTE .STK-MED ONE Stop: 12/10/20 09:16 Hydromorphone HCl (Hydromorphone 0.5 Mg/0.5 Ml Syringe) Confirm Administered Dose 0.5 mg .ROUTE .STK-MED ONE Stop: 12/10/20 09:35 Hydromorphone HCl (Hydromorphone 0.5 Mg/0.5 Ml Syringe) Confirm Administered Dose 0.5 mg .ROUTE .STK-MED ONE Stop: 12/10/20 10:15 Hydromorphone HCl (Hydromorphone 0.5 Mg/0.5 Ml Syringe) Confirm Administered Dose 0.5 mg .ROUTE .STK-MED ONE Stop: 12/10/20 11:04 Hydromorphone HCl (Hydromorphone 0.5 Mg/0.5 Ml Syringe) 0.5 mg IVPUSH Q1H PRN PRN Reason: Pain Stop: 12/10/20 18:00 Last Admin: 12/10/20 11:25 Dose: 0.5 mg Documented by: Lactated Ringer's (Ringers, Lactated) 1,000 mls @ 125 mls/hr IV ASDIRECTED MELISSA Stop: 12/10/20 23:00 Last Admin: 12/10/20 07:22 Dose: 125 mls/hr Documented by: Lidocaine HCl (Xylocaine-Mpf 1%) Confirm Administered Dose 4 mls @ as directed .ROUTE .STK-MED ONE Stop: 12/10/20 07:50 Lactated Ringer's (Ringers, Lactated) Confirm Administered Dose 1,000 mls @ as directed .ROUTE .STK-MED ONE Stop: 12/10/20 08:46 Lactated Ringer's (Ringers, Lactated) Confirm Administered Dose 1,000 mls @ as directed .ROUTE .STK-MED ONE Stop: 12/10/20 08:47 Lactated Ringer's (Ringers, Lactated) Confirm Administered Dose 1,000 mls @ as directed .ROUTE .STK-MED ONE Stop: 12/10/20 10:16 Lactated Ringer's (Ringers, Lactated) 1,000 mls @ 75 mls/hr IV ASDIRECTED [facility] Last Admin: 12/11/20 05:08 Dose: 75 mls/hr Documented by: Ketamine HCl (Ketamine 500 Mg/10 Ml Mdv) Confirm Administered Dose 500 mg .ROUTE .STK-MED ONE Stop: 12/10/20 08:36 Ketorolac Tromethamine (Ketorolac 15 Mg/Ml Sdv) Confirm Administered Dose 15 mg .ROUTE .STK-MED ONE Stop: 12/10/20 10:40 Ketorolac Tromethamine (Ketorolac 30 Mg/Ml Sdv) 30 mg IVPUSH Q6H [facility] Stop: 12/10/20 22:46 Last Admin: 12/10/20 23:53 Dose: 30 mg Documented by: Lidocaine/Epinephrine (Lidocaine 1% With Epinephrine 1:100,000 10 Ml Mdv) Confirm Administered Dose 20 ml .ROUTE .STK-MED ONE Stop: 12/10/20 07:20 Lidocaine/Sodium Bicarbonate (Lidocaine 1%/Sod Bicarbonate In Ns 8.4% 1 Ml Syringe) 0.25 ml IDERM ONETIME PRN PRN Reason: Prior to IV Start Stop: 12/10/20 18:00 Last Admin: 12/10/20 07:20 Dose: 0.25 ml Documented by: Midazolam HCl (Midazolam 1 Mg/Ml 2 Ml Sdv) Confirm Administered Dose 2 mg .ROUTE .STK-MED ONE Stop: 12/10/20 07:48 Miscellaneous Medication (Phenylephrine Hcl In 0.9% Nacl 1 Mg/10 Ml Syringe) Confirm Administered Dose 0 mg .ROUTE .STK-MED ONE Stop: 12/10/20 09:15 Morphine Sulfate (Morphine 2 Mg/Ml Syringe) 2 mg IVPUSH Q2H PRN PRN Reason: Pain (severe 7-10) Last Admin: 12/10/20 16:35 Dose: 2 mg Documented by: Neostigmine Methylsulfate (Neostigmine Methylsulfate 5 Mg/5 Ml Syringe) Confirm Administered Dose 5 mg .ROUTE .STK-MED ONE Stop: 12/10/20 08:56 Ondansetron HCl (Ondansetron 4 Mg/2 Ml Sdv) 4 mg IVPUSH ONETIME PRN PRN Reason: Nausea/Vomiting Stop: 12/10/20 12:00 Ondansetron HCl (Ondansetron 4 Mg/2 Ml Sdv) Confirm Administered Dose 4 mg .ROUTE .STK-MED ONE Stop: 12/10/20 08:23 Ondansetron HCl (Ondansetron 4 Mg/2 Ml Sdv) 4 mg IVPUSH ONETIME PRN PRN Reason: Nausea/Vomiting Stop: 12/10/20 18:00 Propofol (Propofol 200 Mg/20 Ml Sdv) Confirm Administered Dose 400 mg .ROUTE .STK-MED ONE Stop: 12/10/20 07:48 Rocuronium [place] (Rocuronium 50 Mg/5 Ml Vial) Confirm Administered Dose 50 mg .ROUTE .STK-MED ONE Stop: 12/10/20 09:15 Scopolamine (Scopolamine 1.5 Mg Transdermal Patch) 1.5 mg TRDERM ONETIME ONE Stop: 12/10/20 07:25 Last Admin: 12/10/20 07:44 Dose: 1.5 mg Documented by: Sodium Chloride (Sodium Chloride 0.9% 10 Ml Syringe) 10 ml FLUSH ASDIRECTED PRN PRN Reason: Keep Vein Open Stop: 12/10/20 18:00
[2020-12-12 08:38] VITALS: BP 106/69; PULSE 65
== END 2020-12-12 08:35 | disposition home or self-care (01) | DRG 743 ==
LOC: JD.SDS 06:59 → JD.OB 12:24
PROVIDERS: ADMIT Obstetrics & Gynecology; ATTEND Obstetrics & Gynecology
PROC: 0UT90ZZ Resection of Uterus, Open Approach (ICD-10-PCS; principal; 2020-12-10)
DX: N93.9 Abnormal uterine and vaginal bleeding, unspecified (principal); H54.7 Unspecified visual loss; Z91.041 Radiographic dye allergy status; Z88.1 Allergy status to other antibiotic agents; Z88.0 Allergy status to penicillin; Z86.718 Personal history of other venous thrombosis and embolism; Z79.01 Long term (current) use of anticoagulants; Z98.890 Other specified postprocedural states; Z90.49 Acquired absence of other specified parts of digestive tract
CPT/HCPCS: 00840; 36415; 74018; 74018-26; 80048; 81025; 85025; 85027; 85610; 85730; 86850; 86900; 86901; A9270-GY; J0690; J1100; J1170; J1885; J2250; J2270; J2370; J2405; J2704; J2710; J3010; J3490; J7120

== ENCOUNTER 2020-12-20 13:29 | Emergency (ER) | payer MEDICAID ==
[2020-12-20 13:39] VITALS: BP 118/70; PULSE 100
[2020-12-20] MEDS ORDERED: Sodium Chloride 0.9% 10 ML Syringe FLUSH PRN (13:48)
[2020-12-20] MEDS ORDERED: HYDROmorphone 0.5 MG/0.5 ML Syringe IVPUSH ONE (13:51)
--- NOTE | 2020-12-20 13:58 | EDM.PDOC ---
ED HPI GENERAL MEDICAL PROBLEM - General Chief Complaint: Skin Complaint Stated Complaint: POSS INFECTED INCISION POST SURGERY Time Seen by Provider: 12/20/20 13:38 Source of Information: Reports: Patient, RN Notes Reviewed History Limitations: Reports: No Limitations - History of Present Illness INITIAL COMMENTS - FREE TEXT/NARRATIVE: Patient is a 45-year-old female who presents to the ER for evaluation of her redness and swelling of the surgical site. Patient had a open hysterectomy done on December [address] Romero. Patient notes that the surgery most of what while she is not told that there was any complications. Since then, she has developed redness/swelling and increased tenderness to the right side of the incision on the superior aspect. She is denying any fevers or chills, nausea/vomiting/diarrhea, or any cough or shortness of breath. She was seen by Dr. Romero in her office on Tuesday and started on cephalexin, but the patient states it does not seem to be helping as the redness is spreading and the pain is somewhat worse. Lower Abdomen Pain Score (Numeric/FACES): 6 - Related Data Allergies Allergy/AdvReac Type Severity Reaction Status Date / Time Iodinated Contrast Media Allergy Severe Anaphylactic Verified 12/20/20 13:40 [Iodinated Contrast Media - Shock IV Dye] azithromycin Allergy Intermediate Rash Verified 12/20/20 13:40 erythromycin lactobionate Allergy Intermediate Rash Verified 12/20/20 13:40 [From Erythrocin] Penicillins Allergy Intermediate Rash Verified 12/20/20 13:40 ciprofloxacin [From Cipro] Allergy Mild Hives Verified 12/20/20 13:40 ciprofloxacin HCl Allergy Mild Hives Verified 12/20/20 13:40 [From Cipro] Home Meds: Home Meds Rivaroxaban [Xarelto] 20 mg PO DAILY 11/09/20 [History] Acetaminophen/oxyCODONE [Percocet 325-5 MG] 1 - 2 tab PO Q6HR PRN #10 tablet 12/12/20 [Rx] Docusate Sodium [Colace] 100 mg PO BID cap 12/12/20 [Rx] cephALEXin [Cephalexin] 0 mg PO QID 12/20/20 [History] Past Medical History - Past Health History Medical/Surgical History: Denies Medical/Surgical History HEENT History: Reports: Impaired Vision Other HEENT History: wears contacts and glasses Cardiovascular History: Reports: Arrhythmia, Blood Clots/VTE/DVT, Heart Murmur, Other (See Below) Other Cardiovascular History: pulmonary valve insufficiency, pulmonary stenosis, heart catheterization as child Respiratory History: Reports: None Gastrointestinal History: Reports: Hemorrhoids Genitourinary History: Reports: None 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 SPECIALIST 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: Reports: Dysfunctional Uterine Bleeding, 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, , Other (See Below) Other SENIOR ENGINEERING SPECIALIST History: abnormal uterine bleeding, menorrhagia, endometriosis, multiple laparoscopies, diagnostic laparotomy Musculoskeletal History: Reports: None Neurological History: Reports: Migraines Other Neuro History: neurofibromatosis Psychiatric History: Reports: None Endocrine/Metabolic History: Reports: None Hematologic History: Reports: Anemia, Anticoagulation Therapy, Blood Transfusion(s), Iron Deficiency Immunologic History: Reports: None Oncologic (Cancer) History: Reports: None Dermatologic History: Reports: None - Infectious Disease History Infectious Disease History: Reports: Influenza - Past Surgical History Head Surgeries/Procedures: Reports: None HEENT Surgical History: Reports: Adenoidectomy, Tonsillectomy Cardiovascular Surgical History: Reports: Other (See Below) Other Cardiovascular Surgeries/Procedures: interventional radiology uterine artery embolization Respiratory Surgical History: Reports: None GI Surgical History: Reports: Appendectomy, Colonoscopy, EGD Other GI Surgeries/Procedures: hemorrhoid banding Female Surgical History: Reports: Section, Hysterectomy, Oophorectomy, Salpingo-Oophorectomy, Other (See Below) Other Female Surgeries/Procedures: left side Endocrine Surgical History: Reports: None Neurological Surgical History: Reports: None Musculoskeletal Surgical History: Reports: None Oncologic Surgical History: Reports: None Dermatological Surgical History: Reports: None Social & Family History - Family History Family Medical History: No Pertinent Family History Neurological: Reports: Other (See Below) Other Neurological Family History: neurofibromatosis - father & brother Endocrine/Metabolic: Reports: Diabetes, type II Other Oncologic Family History: several cancers in dad's side of family - Tobacco Use Tobacco Use Status *Q: Never Tobacco User Second Hand Smoke Exposure: No - Caffeine Use Caffeine Use: Reports: Coffee Other Caffeine Use: daily - Recreational Drug Use Recreational Drug Use: No ED ROS GENERAL - Review of Systems Review Of Systems: Comprehensive ROS is negative, except as noted in HPI. ED EXAM, SKIN/RASH Exam: See Below Exam Limited By: No Limitations General Appearance: Alert, WD/WN, No Apparent Distress Respiratory/Chest: No Respiratory Distress, Lungs Clear, Normal Breath Sounds, No Accessory Muscle Use, Chest Non-Tender Cardiovascular: Normal Peripheral Pulses, Regular Rate, Rhythm, No Edema Peripheral Pulses: 2+: Radial (L), Radial (R) GI/Abdominal: Normal Bowel Sounds, Soft, Other (see skin assessment for further detail of surgical site concern.) Extremities: Normal Inspection, Normal Capillary Refill Neurological: Alert, Oriented, Normal Cognition, No Motor/Sensory Deficits Psychiatric: Normal Affect, Normal Mood Skin: Warm, Dry, Intact, Wound/Incision (healing laparascopic surgical wounds/ surgical site for open hysterectomy does demonstrate redness/swelling that measures around 8x4cm there does seem to be some fluctuance but the area is tender.) Course - Vital Signs Last Recorded V/S: Last Vital Signs Temp 97.5 F 12/20/20 13:37 Pulse 100 12/20/20 13:37 Resp 16 12/20/20 13:37 BP 118/70 12/20/20 13:37 Pulse Ox 96 12/20/20 13:37 - Orders/Labs/Meds Orders: Active Orders 24 hr Category Date Time Status Notify Provider Consults [RC] ASDIRECTED Care 12/20/20 14:20 Ordered Peripheral IV Care [RC] . DIRECTED Care 12/20/20 13:48 Active Consult to Physician [CONS] Stat Cons 12/20/20 14:20 Ordered Abdomen Ltd [US] Stat Exams 12/20/20 13:50 Ordered CULTURE ANAEROBIC + SMEAR [RM] Stat Lab 12/20/20 14:35 Received Sodium Chloride 0.9% [Saline Flush] Med 12/20/20 13:48 Active 10 ml FLUSH ASDIRECTED PRN Peripheral IV Insertion Adult [OM.PC] Routine Oth 12/20/20 13:48 Ordered Medication Orders Sodium Chloride (Sodium Chloride 0.9% 10 Ml Syringe) 10 ml FLUSH ASDIRECTED PRN PRN Reason: Keep Vein Open Last Admin: 12/20/20 14:00 Dose: 10 ml Documented by: TIGIST Labs: Laboratory Tests 12/20/20 12/20/20 Range/Units 13:55 13:55 WBC 19.22 H (3.98-10.04) K/mm3 RBC 4.06 (3.98-5.22) M/mm3 Hgb 10.3 L (11.2-15.7) gm/dl Hct 33.3 L (34.1-44.9) % MCV 82.0 D (79.4-94.8) fl MCH 25.4 L (25.6-32.2) pg MCHC 30.9 L (32.2-35.5) g/dl RDW Std Deviation 45.5 (36.4-46.3) fL Plt Count 407 H D (182-369) K/mm3 MPV 9.0 L (9.4-12.3) fl Neutrophils % (Manual) 80 H (40-60) % Band Neutrophils % 0 (0-10) % Lymphocytes % (Manual) 11 L (20-40) % Atypical Lymphs % 0 % Monocytes % (Manual) 8 (2-10) % Eosinophils % (Manual) 1 (0.7-5.8) % Basophils % (Manual) 0 L (0.1-1.2) Platelet Estimate Adequate RBC Morph Comment Normal Sodium 138 (136-145) mEq/L Potassium 3.0 L (3.5-5.1) mEq/L Chloride 101 (98-107) mEq/L Carbon Dioxide 28 (21-32) mEq/L Anion Gap 12.0 (5-15) BUN 10 (7-18) mg/dL Creatinine 0.7 (0.55-1.02) mg/dL Est Cr Clr Drug Dosing 80.27 mL/min Estimated GFR (MDRD) > 60 (>60) mL/min BUN/Creatinine Ratio 14.3 (14-18) Glucose 114 H (74-106) mg/dL Calcium 9.2 (8.5-10.1) mg/dL Total Bilirubin 0.3 (0.2-1.0) mg/dL AST 20 (15-37) U/L ALT 30 (14-59) U/L Alkaline Phosphatase 111 (46-116) U/L Total Protein 7.2 (6.4-8.2) g/dl Albumin 3.0 L (3.4-5.0) g/dl Globulin 4.2 gm/dL Albumin/Globulin Ratio 0.7 L (1-2) Meds: Medications Generic Name Dose Route Start Last Admin Trade Name Freq PRN Reason Stop Dose Admin Sodium Chloride 10 ml 12/20/20 13:48 12/20/20 14:00 Sodium Chloride 0.9% 10 Ml Syringe FLUSH 10 ml ASDIRECTED PRN Administration Keep Vein Open Discontinued Medications Generic Name Dose Route Start Last Admin Trade Name Ludmila PRN Reason Stop Dose Admin Hydromorphone HCl 0.5 mg 12/20/20 13:51 12/20/20 14:00 Hydromorphone 0.5 Mg/0.5 Ml Syringe IVPUSH 12/20/20 13:52 0.5 mg ONETIME ONE Administration Lidocaine HCl 10 ml 12/20/20 14:26 12/20/20 15:06 Lidocaine 1% 10 Ml Mdv INJECT 12/20/20 14:27 10 ml ONETIME ONE Administration Potassium Chloride 40 meq 12/20/20 14:59 12/20/20 15:24 Potassium Chloride 20 Meq Tab.Er PO 12/20/20 15:00 40 meq ONETIME ONE Administration - Re-Assessments/Exams Free Text/Narrative Re-Assessment/Exam: 12/20/20 13:57 Patient presents to the ER for her skin concern near her surgical wound, I did call Dr. Romero initially, and she notes that the area of concern was measuring roughly 3 x 4 cm on Tuesday. Today I gave her a rough estimate of about 8 x 4 cm. She does request ultrasound of the area to be performed, we will start IV, get some basic labs for ongoing management. She will get 0.5 mg Dilaudid just prior to the ultrasound being performed for pain management. 12/20/20 14:28 Dr. Romero has been in to see the patient, she states that the area does not seem markedly different than it did on Tuesday however patient's white count has elevated a little bit from 13,[address] Romero's report to 19,000 with 80% neutrophils and no bands. Dr. Romero will perform a small I&D of the area to see if there is any purulent material versus bleeding. Have ordered lidocaine, and have gotten supplies for Dr. Romero to perform the I&D. 12/20/20 14:50 Dr. Romero states that she was able to get quite a bit of purulent material out of the area of concern. Ultrasound report is still pending however Dr. Romero was in the room to see the imaging being done, will call her if anything worrisome comes up on the findings however patient is to follow-up with Dr. Romero on Tuesday, she is to still take the Keflex, and to hold her Xarelto. 12/20/20 15:30 The patient's potassium was mildly low at 3.0, she will get 1 dose of oral potassium supplementation in the ER. Ultrasound demonstrated an area approximately 6.8 x 2.7 x 6.5 cm complex collection with no internal blood flow. Departure - Departure Time of Disposition: 14:50 Disposition: Home, Self-Care 01 Condition: Good Clinical Impression: Cellulitis and abscess of other specified site - Discharge Information *PRESCRIPTION DRUG MONITORING PROGRAM REVIEWED*: No *COPY OF PRESCRIPTION DRUG MONITORING REPORT IN PATIENT SEN: No Instructions: Skin Abscess, [id number] Referrals: Vicki Torres MD [Primary Care Provider] - Forms: ED Department Discharge Additional Instructions: You were evaluated in the ER today regarding a suspected skin infection. This area has been observed by Dr. Romero, and she did perform an incision and drainage on the area and she did get quite a bit of purulent material out of the area of concern. She did pack the wound, and she wants you to follow-up with her in her clinic on Tuesday morning, she states to show up there in the morning and she will take care of the rest. You are to stop taking your Xarelto, until you can see Dr. Romero on Tuesday. Please continue the use of your Keflex antibiotic, until told otherwise by Dr. Romero. You may try to use heat/ice packs to the area to help reduce pain/swelling. You may take 500 mg Tylenol or 600 mg ibuprofen every 6 hours as needed for further pain relief. Do not exceed 4000 mg Tylenol or 3200 mg ibuprofen in a 24-hour time span. Dr. Romero is going to send you a continuing prescription for Percocet tablets, for dressing changes of the wound. Please take these as directed by Dr. Romero. Please return to the ER at any time if your symptoms change or worsen. Sepsis Event Note (ED) - Evaluation Sepsis Screening Result: No Definite Risk - Focused Exam Vital Signs: Vital Signs Temp Pulse Resp BP Pulse Ox 12/20/20 13:37 97.5 F 100 16 118/70 96 - My Orders Last 24 Hours: My Active Orders 12/20/20 13:48 Peripheral IV Care [RC] . DIRECTED Sodium Chloride 0.9% [Saline Flush] 10 ml FLUSH ASDIRECTED PRN Peripheral IV Insertion Adult [OM.PC] Routine 12/20/20 13:50 Abdomen Ltd [US] Stat 12/20/20 14:20 Notify Provider Consults [RC] ASDIRECTED Consult to Physician [CONS] Stat - Assessment/Plan Last 24 Hours: My Active Orders 12/20/20 13:48 Peripheral IV Care [RC] . DIRECTED Sodium Chloride 0.9% [Saline Flush] 10 ml FLUSH ASDIRECTED PRN Peripheral IV Insertion Adult [OM.PC] Routine 12/20/20 13:50 Abdomen Ltd [US] Stat 12/20/20 14:20 Notify Provider Consults [RC] ASDIRECTED Consult to Physician [CONS] Stat
[2020-12-20] MEDS ORDERED: Lidocaine 1% 10 ML MDV INJECT ONE (14:26)
[2020-12-20] MEDS ORDERED: Potassium Chloride 20 MEQ Tab.ER PO ONE (14:59)
--- NOTE | 2020-12-20 15:42 | PCM.CONS ---
H&P History of Present Illness - General Date of Service: 12/20/20 Source of Information: Patient History Limitations: Reports: No Limitations - History of Present Illness Initial Comments - Free Text/Narative: Patient is a 45 y/o woman who underwent DULCE on 12/10 for AUB secondary to chronic anticoagulation. Patient bleeding history notable for requiring several blood transfusions and also required stabilization with uterine artery embolization by IR prior to surgery. Had been seen in clinic on 12/17 for concerns of a lump wh ich was newly present at right aspect of her incision. Area thought likely to represent a hematoma, but to be cautious was started on Kelfex and had plans to reassess in 1 week. Presents, however, now to ER as she feels area is even larger than previous. No fevers. No drainage. Lower Abdomen Pain Score (Numeric/FACES): 6 - Related Data Allergies/Adverse Reactions: Allergies Allergy/AdvReac Type Severity Reaction Status Date / Time Iodinated Contrast Media Allergy Severe Anaphylactic Verified 12/20/20 13:40 [Iodinated Contrast Media - Shock IV Dye] azithromycin Allergy Intermediate Rash Verified 12/20/20 13:40 erythromycin lactobionate Allergy Intermediate Rash Verified 12/20/20 13:40 [From Erythrocin] Penicillins Allergy Intermediate Rash Verified 12/20/20 13:40 ciprofloxacin [From Cipro] Allergy Mild Hives Verified 12/20/20 13:40 ciprofloxacin HCl Allergy Mild Hives Verified 12/20/20 13:40 [From Cipro] Home Medications: Home Meds Rivaroxaban [Xarelto] 20 mg PO DAILY 11/09/20 [History] Acetaminophen/oxyCODONE [Percocet 325-5 MG] 1 - 2 tab PO Q6HR PRN #10 tablet 12/12/20 [Rx] Docusate Sodium [Colace] 100 mg PO BID cap 12/12/20 [Rx] cephALEXin [Cephalexin] 0 mg PO QID 12/20/20 [History] Past Medical History HEENT History: Reports: Impaired Vision Other HEENT History: wears contacts and glasses Cardiovascular History: Reports: Blood Clots/VTE/DVT, Heart Murmur, Other (See Below) Other Cardiovascular History: pulmonary valve insufficiency, pulmonary stenosis, heart catheterization as child Gastrointestinal History: Reports: Hemorrhoids 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: Dysfunctional Uterine Bleeding, 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 : 1 Para: 1 Neurological History: Reports: Migraines Other Neuro History: neurofibromatosis Hematologic History: Reports: Anemia, Anticoagulation Therapy, Blood Transfusion(s), Iron Deficiency - Past Surgical History HEENT Surgical History: Reports: Adenoidectomy, Tonsillectomy Cardiovascular Surgical History: Reports: Other (See Below) Other Cardiovascular Surgeries/Procedures: interventional radiology uterine artery embolization GI Surgical History: Reports: Appendectomy, Colonoscopy, EGD Other GI Surgeries/Procedures: hemorrhoid banding Female Surgical History: Reports: Section, Hysterectomy, Oophorectomy Social & Family History - Family History Family Medical History: No Pertinent Family History Neurological: Reports: Other (See Below) Other Neurological Family History: neurofibromatosis - father & brother Endocrine/Metabolic: Reports: Diabetes, type II Other Oncologic Family History: several cancers in dad's side of family - Tobacco Use Tobacco Use Status *Q: Never Tobacco User Second Hand Smoke Exposure: No - Caffeine Use Caffeine Use: Reports: Coffee Other Caffeine Use: daily - Alcohol Use Alcohol Use History: No - Recreational Drug Use Recreational Drug Use: No H&P Review of Systems - Review of Systems: Review Of Systems: See Below General: Reports: No Symptoms Pulmonary: Reports: No Symptoms Cardiovascular: Reports: No Symptoms Gastrointestinal: Reports: Abdominal Pain (worsening along right aspect of incision ) Genitourinary: Reports: No Symptoms Musculoskeletal: Reports: No Symptoms Exam - Exam Exam: See Below - Vital Signs Vital Signs: Last Vital Signs Temp 36.4 C 12/20/20 13:37 Pulse 100 12/20/20 13:37 Resp 16 12/20/20 13:37 BP 118/70 12/20/20 13:37 Pulse Ox 96 12/20/20 13:37 Weight: 57.606 kg - Exam General: Alert, Oriented, Cooperative GI/Abdominal Exam: Soft, Non-Tender. No: Guarding, Rebound Physical Exam Comments:: Incision: At right aspect of incision are of fullness has increased in size. In past 4 x 2 cm, but now more like 7 x 4 cm. Now also feels warm to touch - Patient Data Result Diagrams: 12/20/20 13:55 12/20/20 13:55 Sepsis Event Note - Evaluation Sepsis Screening Result: No Definite Risk - Focused Exam Vital Signs: Vital Signs Temp Pulse Resp BP Pulse Ox 12/20/20 13:37 36.4 C 100 16 118/70 96 Consult PN Assessment/Plan Procedures: Procedures BL SMEAR W/DIFF WBC COUNT (03/19/19) BLOOD TRANSFUSION SERVICE (11/24/20) BLOOD TYPING SEROLOGIC ABO (11/24/20) BLOOD TYPING SEROLOGIC RH(D) (11/24/20) CHORIONIC GONADOTROPIN ASSAY (11/24/20) COMPATIBILITY TEST ANTIGLOB (11/24/20) COMPLETE CBC AUTOMATED (03/19/19) COMPLETE CBC W/AUTO DIFF WBC (11/24/20) COMPREHEN METABOLIC PANEL (11/24/20) ECHO EXAM OF ABDOMEN (08/28/14) EMERGENCY DEPT VISIT (11/24/20) EMERGENCY DEPT VISIT (11/16/20) EMERGENCY DEPT VISIT (11/13/20) EMERGENCY DEPT VISIT (09/01/20) EMERGENCY DEPT VISIT (06/19/20) EMERGENCY DEPT VISIT (01/03/20) EMERGENCY DEPT VISIT (03/19/19) EMERGENCY DEPT VISIT (06/20/18) EMERGENCY DEPT VISIT (12/26/17) EMERGENCY DEPT VISIT (11/16/15) EMERGENCY DEPT VISIT (05/16/15) EMERGENCY DEPT VISIT (08/28/14) EMERGENCY DEPT VISIT (12/15/13) EXTREMITY STUDY (06/19/20) HEPATOBIL SYST IMAGE W/DRUG (05/20/16) HYDRATE IV INFUSION ADD-ON (08/28/14) IMMUNIZATION ADMIN (01/03/20) PROTHROMBIN TIME (11/09/20) RBC ANTIBODY SCREEN (11/24/20) ROUTINE VENIPUNCTURE (11/24/20) RPR S/N/AX/GEN/TRNK 2.5CM/< (01/03/20) SARS-COV-2 COVID-19 AMP PRB (12/08/20) TDAP VACCINE 7 YRS/> IM (01/03/20) THER/PROPH/DIAG INJ IV PUSH (08/28/14) THER/PROPH/DIAG INJ SC/IM (11/16/15) THROMBOPLASTIN TIME PARTIAL (11/09/20) TRANSVAGINAL US NON-OB (11/09/20) TX/PRO/DX INJ NEW DRUG ADDON (08/28/14) URINALYSIS AUTO W/SCOPE (03/19/19) X-RAY EXAM NECK SPINE 2-3 VW (11/16/15) (1) Post op infection SNOMED Code(s): 86744524 Code(s): T81.40XA - INFECTION FOLLOWING A PROCEDURE, UNSPECIFIED, INIT Problem List Initiated/Reviewed/Updated: Yes My Orders Last 24 Hours: My Active Orders 12/20/20 14:35 CULTURE ANAEROBIC + SMEAR [RM] Stat Plan: * US ordered of site * WBC elevated. Likely post op abscess. Reviewed can do I&D bedside she agrees. See separate procedure note. * Patient's mother to do dressing change tomorrow 12/21 * Continue Keflex * Refill percocet * Return to clinic in 2 days * Would like her to hold her Xarelto tonight and tomorrow night in case further surgical exploration of wound warranted ED I&D PROCEDURES - I&D Skin prep: Chlorhexidine (Hibiciens) Local anesthesia - Lidocaine (Xylocaine): 1% Plain Local Anesthetic Volume: 2cc Area Incised With: 11 Blade Drainage: Purulent Probed to Break Up Loculations: Yes Packed With: 1/4 in. Iodoform, Other Sterile Dressinx4(s) Complications: No Progress/Comments: Area cleansed with chlorhexadine and infiltrated with small amount of 1% lidoc sunil. 1 cm incision made with 11 blade releasing large amount of purulent material. Area probed with a sterile q-tip. Area then packed and covered with gauze
--- NOTE | 2020-12-21 10:41 | US ---
Limited abdominal ultrasound: Multiple real-time images were obtained of the abdominal wall. Findings: Irregular hypoechoic area is noted within the abdominal wall measuring 6.8 x 2.7 x 6.5 cm. This could possibly represent an abscess. Impression: 1. Findings suspicious for abdominal wall abscess as noted above. Diagnostic code #3 I agree with preliminary report from [facility], finalized on 12/20/20, 3:58 PM CDT
== END 2020-12-20 15:24 | disposition home or self-care (01) ==
LOC: JD.ED 13:29
DX: L02.211 Cutaneous abscess of abdominal wall (principal); L03.311 Cellulitis of abdominal wall; Z91.041 Radiographic dye allergy status; Z88.1 Allergy status to other antibiotic agents; Z88.0 Allergy status to penicillin
CPT/HCPCS: 10060; 36415; 76705; 80053; 85007; 85027; 87075; 87205; 96374; 99284; A9270; J1170

== ENCOUNTER 2021-06-22 20:04 | Emergency (ER) | payer MEDICAID ==
[2021-06-22 20:26] VITALS: BP 118/67; PULSE 75
[2021-06-22] MEDS ORDERED: Ketorolac 15 MG/ML SDV IVPUSH ONE (20:40)
--- NOTE | 2021-06-22 20:50 | EDM.PDOC ---
ED HPI GENERAL MEDICAL PROBLEM - General Chief Complaint: Abdominal Pain Stated Complaint: LT SIDE PAIN Time Seen by Provider: 06/22/21 20:35 Source of Information: Reports: Patient History Limitations: Reports: No Limitations - History of Present Illness INITIAL COMMENTS - FREE TEXT/NARRATIVE: Patient is 45-year-old female with past history of neurofibromatosis presenting with chief complaint of lower abdominal pain. Patient reports several days of left lower quadrant abdominal pain. Patient reports the pain is sharp and seems to be worse with certain movements such as squatting and bending over. It is improved with rest and somewhat improved with Tylenol. Patient denies any associated fevers, chills, diarrhea, constipation, dysuria, hematuria, vaginal bleeding. Patient has no prior history of similar pain. Patient has had previous appendectomy as well as several laparoscopies for endometriosis/ovarian cyst. Right Lower Abdomen Pain Score (Numeric/FACES): 5 - Related Data Allergies Allergy/AdvReac Type Severity Reaction Status Date / Time Iodinated Contrast Media Allergy Severe Anaphylactic Verified 06/22/21 20:22 [Iodinated Contrast Media - Shock IV Dye] azithromycin Allergy Intermediate Rash Verified 06/22/21 20:22 erythromycin lactobionate Allergy Intermediate Rash Verified 06/22/21 20:22 [From Erythrocin] Penicillins Allergy Intermediate Rash Verified 06/22/21 20:22 ciprofloxacin [From Cipro] Allergy Mild Hives Verified 06/22/21 20:22 ciprofloxacin HCl Allergy Mild Hives Verified 06/22/21 20:22 [From Cipro] Home Meds: Home Meds Rivaroxaban [Xarelto] 20 mg PO DAILY 11/09/20 [History] Past Medical History - Past Health History Medical/Surgical History: Denies Medical/Surgical History HEENT History: Reports: Impaired Vision Other HEENT History: wears contacts and glasses Cardiovascular History: Reports: Blood Clots/VTE/DVT, Heart Murmur, Other (See Below) Other Cardiovascular History: pulmonary valve insufficiency, pulmonary stenosis, heart catheterization as child Respiratory History: Reports: None Gastrointestinal History: Reports: Hemorrhoids Genitourinary History: Reports: None [employer] History: Reports: Dysfunctional Uterine Bleeding, 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 Other [employer] History: abnormal uterine bleeding, menorrhagia, endometriosis, multiple laparoscopies, diagnostic laparotomy Musculoskeletal History: Reports: None Neurological History: Reports: Migraines Other Neuro History: neurofibromatosis Psychiatric History: Reports: None Endocrine/Metabolic History: Reports: None Hematologic History: Reports: Anemia, Anticoagulation Therapy, Blood Transfusion (s), Iron Deficiency Immunologic History: Reports: None Oncologic (Cancer) History: Reports: None Dermatologic History: Reports: None - Infectious Disease History Infectious Disease History: Reports: Influenza - Past Surgical History Head Surgeries/Procedures: Reports: None HEENT Surgical History: Reports: Adenoidectomy, Tonsillectomy Cardiovascular Surgical History: Reports: Other (See Below) Other Cardiovascular Surgeries/Procedures: interventional radiology uterine artery embolization Respiratory Surgical History: Reports: None GI Surgical History: Reports: Appendectomy, Colonoscopy, EGD Other GI Surgeries/Procedures: hemorrhoid banding Female Surgical History: Reports: Section, Hysterectomy, Oophorectomy Other Female Surgeries/Procedures: left side Endocrine Surgical History: Reports: None Neurological Surgical History: Reports: None Musculoskeletal Surgical History: Reports: None Oncologic Surgical History: Reports: None Dermatological Surgical History: Reports: None Social & Family History - Family History Family Medical History: No Pertinent Family History Neurological: Reports: Other (See Below) Other Neurological Family History: neurofibromatosis - father & brother Endocrine/Metabolic: Reports: Diabetes, type II Other Oncologic Family History: several cancers in dad's side of family - Tobacco Use Tobacco Use Status *Q: Never Tobacco User - Caffeine Use Caffeine Use: Reports: Coffee Other Caffeine Use: daily - Recreational Drug Use Recreational Drug Use: No ED ROS GENERAL - Review of Systems Review Of Systems: See Below Free Text/Narrative/Comment: In addition to that documented in the HPI above, the additional ROS was obtained: Constitutional: Denies fevers or chills Eyes: Denies vision changes ENMT: Denies sore throat CV: Denies chest pain Resp: Denies SOB GI: Denies vomiting or diarrhea : Denies painful urination MSK: Denies recent trauma Skin: Denies new rashes Neuro: Denies new numbness or tingling or weakness Endocrine: Denies unexpected weight loss Heme: Denies bleeding disorders ED EXAM, GI/ABD - Physical Exam Exam: See Below Text/Narrative:: I have reviewed the triage vital signs Const: Well nourished, well developed, appears stated age Eyes: Pupils Equal and reactive to light bilaterally, no conjunctival injection HENT: No signs of trauma or swelling, Neck supple without meningismus CV: Regular Rate Rhythm, Warm, well-perfused extremities RESP: Unlabored respiratory effort GI: soft, non-tender, non-distended, no masses MSK: No gross deformities appreciated Skin: Warm, dry. No rashes Neuro: Alert, molten iron pourer II-XII grossly intact. Sensation and motor function of extremities grossly intact. Psych: Appropriate mood and affect. Course - Vital Signs Last Recorded V/S: Last Vital Signs Temp 35.9 C L 06/22/21 20:24 Pulse 75 06/22/21 20:24 Resp 15 06/22/21 20:24 BP 118/67 06/22/21 20:24 Pulse Ox 99 06/22/21 20:24 - Orders/Labs/Meds Labs: Laboratory Tests 06/22/21 06/22/21 06/22/21 Range/Units 20:55 20:55 20:58 WBC 8.93 (3.98-10.04) K/mm3 RBC 4.90 (3.98-5.22) M/mm3 Hgb 13.5 D (11.2-15.7) gm/dl Hct 42.8 (34.1-44.9) % MCV 87.3 D (79.4-94.8) fl MCH 27.6 (25.6-32.2) pg MCHC 31.5 L (32.2-35.5) g/dl RDW Std Deviation 59.2 H (36.4-46.3) fL Plt Count 255 D (182-369) K/mm3 MPV 9.3 L (9.4-12.3) fl Neut % (Auto) 66.0 (34.0-71.1) % Lymph % (Auto) 20.2 (19.3-51.7) % [place] % (Auto) 10.2 (4.7-12.5) % Eos % (Auto) 1.8 (0.7-5.8) Baso % (Auto) 0.8 (0.1-1.2) % Neut # (Auto) 5.90 (1.56-6.13) K/mm3 Lymph # (Auto) 1.80 (1.18-3.74) K/mm3 [place] # (Auto) 0.91 H (0.24-0.36) K/mm3 Eos # (Auto) 0.16 (0.04-0.36) K/mm3 Baso # (Auto) 0.07 (0.01-0.08) K/mm3 Sodium 137 (136-145) mEq/L Potassium 4.1 (3.5-5.1) mEq/L Chloride 102 (98-107) mEq/L Carbon Dioxide 29 (21-32) mEq/L Anion Gap 10.1 (5-15) BUN 15 (7-18) mg/dL Creatinine 0.6 (0.55-1.02) mg/dL Est Cr Clr Drug Dosing 93.65 mL/min Estimated GFR (MDRD) > 60 (>60) mL/min BUN/Creatinine Ratio 25.0 H (14-18) Glucose 94 (70-99) mg/dL Calcium 9.0 (8.5-10.1) mg/dL Total Bilirubin 0.2 (0.2-1.0) mg/dL AST 18 (15-37) U/L ALT 19 (14-59) U/L Alkaline Phosphatase 64 (46-116) U/L Total Protein 7.2 (6.4-8.2) g/dl Albumin 3.7 (3.4-5.0) g/dl Globulin 3.5 gm/dL Albumin/Globulin Ratio 1.1 (1-2) Urine Color Yellow (Yellow) Urine Appearance Clear (Clear) Urine pH 7.0 (5.0-8.0) Ur Specific [place] 1.025 (1.005-1.030) Urine Protein Negative (Negative) Urine Glucose (UA) Negative (Negative) Urine Ketones Negative (Negative) Urine Occult Blood Negative (Negative) Urine Nitrite Negative (Negative) Urine Bilirubin Negative (Negative) Urine Urobilinogen 0.2 (0.2-1.0) Ur Leukocyte Esterase Trace H (Negative) Urine RBC 0-5 (0-5) /hpf Urine WBC 0-5 (0-5) /hpf Ur Squamous Epith Cells 0-5 (0-5) /hpf Urine Bacteria Rare (FEW) /hpf Urine Mucus Not seen (FEW) /hpf Urine HCG, Qual (NEGATIVE) 06/22/21 Range/Units 20:58 WBC (3.98-10.04) K/mm3 RBC (3.98-5.22) M/mm3 Hgb (11.2-15.7) gm/dl Hct (34.1-44.9) % MCV (79.4-94.8) fl MCH (25.6-32.2) pg MCHC (32.2-35.5) g/dl RDW Std Deviation (36.4-46.3) fL Plt Count (182-369) K/mm3 MPV (9.4-12.3) fl Neut % (Auto) (34.0-71.1) % Lymph % (Auto) (19.3-51.7) % [place] % (Auto) (4.7-12.5) % Eos % (Auto) (0.7-5.8) Baso % (Auto) (0.1-1.2) % Neut # (Auto) (1.56-6.13) K/mm3 Lymph # (Auto) (1.18-3.74) K/mm3 [place] # (Auto) (0.24-0.36) K/mm3 Eos # (Auto) (0.04-0.36) K/mm3 Baso # (Auto) (0.01-0.08) K/mm3 Sodium (136-145) mEq/L Potassium (3.5-5.1) mEq/L Chloride (98-107) mEq/L Carbon Dioxide (21-32) mEq/L Anion Gap (5-15) BUN (7-18) mg/dL Creatinine (0.55-1.02) mg/dL Est Cr Clr Drug Dosing mL/min Estimated GFR (MDRD) (>60) mL/min BUN/Creatinine Ratio (14-18) Glucose (70-99) mg/dL Calcium (8.5-10.1) mg/dL Total Bilirubin (0.2-1.0) mg/dL AST (15-37) U/L ALT (14-59) U/L Alkaline Phosphatase (46-116) U/L Total Protein (6.4-8.2) g/dl Albumin (3.4-5.0) g/dl Globulin gm/dL Albumin/Globulin Ratio (1-2) Urine Color (Yellow) Urine Appearance (Clear) Urine pH (5.0-8.0) Ur Specific [place] (1.005-1.030) Urine Protein (Negative) Urine Glucose (UA) (Negative) Urine Ketones (Negative) Urine Occult Blood (Negative) Urine Nitrite (Negative) Urine Bilirubin (Negative) Urine Urobilinogen (0.2-1.0) Ur Leukocyte Esterase (Negative) Urine RBC (0-5) /hpf Urine WBC (0-5) /hpf Ur Squamous Epith Cells (0-5) /hpf Urine Bacteria (FEW) /hpf Urine Mucus (FEW) /hpf Urine HCG, Qual Negative (NEGATIVE) Meds: Medications Discontinued Medications Generic Name Dose Route Start Last Admin Trade Name Freq PRN Reason Stop Dose Admin Ketorolac Tromethamine 15 mg 06/22/21 20:40 06/22/21 20:54 Ketorolac 15 Mg/Ml Sdv IVPUSH 06/22/21 20:41 15 mg ONETIME ONE Administration Departure - Departure Time of Disposition: 21:44 Disposition: Home, Self-Care 01 Clinical Impression: Abdominal pain - Discharge Information *PRESCRIPTION DRUG MONITORING PROGRAM REVIEWED*: Not Applicable *COPY OF PRESCRIPTION DRUG MONITORING REPORT IN PATIENT SEN: Not Applicable Instructions: Abdominal Pain, Adult Referrals: Vicki Torres MD [Primary Care Provider] - Forms: ED Department Discharge Sepsis Event Note (ED) - Evaluation Sepsis Screening Result: No Definite Risk - Focused Exam Vital Signs: Vital Signs Temp Pulse Resp BP Pulse Ox 06/22/21 20:24 35.9 C L 75 15 118/67 99 - Assessment/Plan Assessment:: Patient 45-year-old female presented to emergency with a chief complaint of lower abdominal pain. Patient had unremarkable abdominal exam, normal vital signs and work-up which did not demonstrate any significant abnormality. Differential diagnosis for this patient include kidney stone, UTI, pyelonephritis, diverticulitis. No evidence of leukocytosis and urinary tract looks otherwise unremarkable. Patient not having any urinary symptoms. Patient given Toradol with improvement of symptoms in the emergency room. Will discharge with outpatient follow-up. Return precautions given usual. Patient agrees with plan.
== END 2021-06-22 21:52 | disposition home or self-care (01) ==
LOC: JD.ED 20:04
DX: R10.32 Left lower quadrant pain (principal); Z88.1 Allergy status to other antibiotic agents; Z91.041 Radiographic dye allergy status; Z88.0 Allergy status to penicillin; Z86.718 Personal history of other venous thrombosis and embolism; Z79.01 Long term (current) use of anticoagulants
CPT/HCPCS: 36415; 80053; 81001; 81025; 85025; 96374; 99284; J1885

== ENCOUNTER 2021-08-13 15:52 | Emergency (ER) | payer MEDICAID ==
[2021-08-13] MEDS ORDERED: Sodium Chloride 0.9% 10 ML Syringe FLUSH PRN (16:48)
[2021-08-13] MEDS ORDERED: Ondansetron 4 MG/2 ML SDV IVPUSH ONE (16:48)
[2021-08-13] MEDS ORDERED: Sodium Chloride 0.9% 1,000 ML IV SCH (17:00)
[2021-08-13] MEDS ORDERED: Sodium Chloride 0.9% 1,000 ML IV STA (19:02)
[2021-08-13] MEDS ORDERED: Ketorolac 30 MG/ML SDV IVPUSH ONE (19:02)
[2021-08-13] MEDS ORDERED: Dicyclomine 10 MG Cap PO ONE (19:03)
[2021-08-13 19:23] VITALS: BP 100/65; PULSE 96
--- NOTE | 2021-08-13 19:47 | EDM.PDOC ---
ED HPI GENERAL MEDICAL PROBLEM - General Chief Complaint: Respiratory Problem Stated Complaint: VOMITING/DIARRHEA Time Seen by Provider: 08/13/21 17:30 Source of Information: Reports: Patient, RN Notes Reviewed History Limitations: Reports: No Limitations - History of Present Illness INITIAL COMMENTS - FREE TEXT/NARRATIVE: Patient is a 45-year-old female presenting to the emergency department with complaints of nausea and vomiting, diarrhea, and generalized abdominal cramping. Symptoms began during the night. She estimates she is vomit approximate 8 times and had 2 episodes of watery diarrhea. Reports she vomits every time she tries to drink anything. Denies any questionable food intake. Her mother and brother both have Covid and she has been exposed to them. Denies any respiratory complaints. Headache Pain Score (Numeric/FACES): 6 Generalized Pain Score (Numeric/FACES): 5 Abdomen Pain Score (Numeric/FACES): 6 - Related Data Allergies Allergy/AdvReac Type Severity Reaction Status Date / Time Iodinated Contrast Media Allergy Severe Anaphylactic Verified 06/22/21 20:22 [Iodinated Contrast Media - Shock IV Dye] azithromycin Allergy Intermediate Rash Verified 06/22/21 20:22 erythromycin lactobionate Allergy Intermediate Rash Verified 06/22/21 20:22 [From Erythrocin] Penicillins Allergy Intermediate Rash Verified 06/22/21 20:22 ciprofloxacin [From Cipro] Allergy Mild Hives Verified 06/22/21 20:22 ciprofloxacin HCl Allergy Mild Hives Verified 06/22/21 20:22 [From Cipro] Home Meds: Home Meds Aspirin [Halfprin] 81 mg PO DAILY 08/13/21 [History] Dicyclomine [Bentyl] 20 mg PO Q8H PRN #12 tab 08/13/21 [Rx] Ondansetron [Zofran ODT] 4 mg PO Q6H PRN #10 tab.dis 08/13/21 [Rx] Past Medical History - Past Health History Medical/Surgical History: Denies Medical/Surgical History HEENT History: Reports: Impaired Vision Other HEENT History: wears contacts and glasses Cardiovascular History: Reports: Blood Clots/VTE/DVT, Heart Murmur, Other (See Below) Other Cardiovascular History: pulmonary valve insufficiency, pulmonary stenosis, heart catheterization as child;LEFT LEG DVT-NOT TAKING XARELTO BUT USING ASPIRIN INSTEAD Respiratory History: Reports: None Gastrointestinal History: Reports: Hemorrhoids Genitourinary History: Reports: None RN ED History: Reports: Dysfunctional Uterine Bleeding, 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 Other RN ED History: abnormal uterine bleeding, menorrhagia, endometriosis, multiple laparoscopies, diagnostic laparotomy Musculoskeletal History: Reports: None Neurological History: Reports: Migraines Other Neuro History: neurofibromatosis Psychiatric History: Reports: None Endocrine/Metabolic History: Reports: None Hematologic History: Reports: Anemia, Anticoagulation Therapy, Blood Transfusion(s), Iron Deficiency Immunologic History: Reports: None Oncologic (Cancer) History: Reports: None Dermatologic History: Reports: None - Infectious Disease History Infectious Disease History: Reports: Influenza - Past Surgical History Head Surgeries/Procedures: Reports: None HEENT Surgical History: Reports: Adenoidectomy, Tonsillectomy Cardiovascular Surgical History: Reports: Other (See Below) Other Cardiovascular Surgeries/Procedures: interventional radiology uterine artery embolization Respiratory Surgical History: Reports: None GI Surgical History: Reports: Appendectomy, Colonoscopy, EGD Other GI Surgeries/Procedures: hemorrhoid banding Female Surgical History: Reports: Section, Hysterectomy, Oophorectomy Other Female Surgeries/Procedures: left side Endocrine Surgical History: Reports: None Neurological Surgical History: Reports: None Musculoskeletal Surgical History: Reports: None Oncologic Surgical History: Reports: None Dermatological Surgical History: Reports: None Social & Family History - Family History Family Medical History: No Pertinent Family History Neurological: Reports: Other (See Below) Other Neurological Family History: neurofibromatosis - father & brother Endocrine/Metabolic: Reports: Diabetes, type II Other Oncologic Family History: several cancers in dad's side of family - Tobacco Use Tobacco Use Status *Q: Never Tobacco User - Caffeine Use Caffeine Use: Reports: Coffee, Energy Drinks, Soda, Tea Other Caffeine Use: daily - Recreational Drug Use Recreational Drug Use: No ED ROS GENERAL - Review of Systems Review Of Systems: See Below Constitutional: Reports: Fever, Chills, Decreased Appetite HEENT: Reports: No Symptoms Respiratory: Reports: No Symptoms Cardiovascular: Reports: No Symptoms Endocrine: Reports: No Symptoms GI/Abdominal: Reports: Abdominal Pain (Cramping), Diarrhea, Nausea, Vomiting. Denies: Bloody Stool, Hematemesis : Reports: No Symptoms. Denies: Dysuria Musculoskeletal: Reports: No Symptoms Skin: Reports: No Symptoms Neurological: Reports: Headache. Denies: Confusion, Dizziness Psychiatric: Reports: No Symptoms Hematologic/Lymphatic: Reports: No Symptoms Immunologic: Reports: No Symptoms ED EXAM, GENERAL - Physical Exam Exam: See Below Exam Limited By: No Limitations General Appearance: Alert, WD/WN, No Apparent Distress Respiratory/Chest: No Respiratory Distress, Lungs Clear, Normal Breath Sounds, No Accessory Muscle Use, Chest Non-Tender Cardiovascular: Normal Peripheral Pulses, Regular Rate, Rhythm, No Edema, No Gallop, No JVD, No Murmur, No Rub GI/Abdominal: Normal Bowel Sounds, Soft, No Organomegaly, No Distention, No Abnormal Bruit, No Mass, Tender (Mild, generalized abdominal tenderness. No rigidity or peritoneal signs.) Neurological: Alert, Oriented, CN II-XII Intact, Normal Cognition, Normal Gait, Normal Reflexes, No Motor/Sensory Deficits Psychiatric: Normal Affect, Normal Mood Skin Exam: Warm, Dry, Intact, Normal Color, No Rash Course - Vital Signs Last Recorded V/S: Last Vital Signs Temp 100.1 F 08/13/21 16:45 Pulse 96 08/13/21 19:00 Resp 18 08/13/21 19:00 BP 100/65 08/13/21 19:00 Pulse Ox 97 08/13/21 19:00 Orthostatic Blood Pressure [ 107/91 Standing] Orthostatic Blood Pressure [ 116/62 Supine] - Orders/Labs/Meds Orders: Active Orders 24 hr Category Date Time Status Communication Order [RC] ASDIRECTED Care 08/13/21 16:48 Active Communication Order [RC] ASDIRECTED Care 08/13/21 16:48 Active Communication Order [RC] ASDIRECTED Care 08/13/21 16:48 Active Communication Order [RC] ASDIRECTED Care 08/13/21 16:48 Active Orthostatic Vital Signs [RC] ASDIRECTED Care 08/13/21 16:48 Active Peripheral IV Care [RC] . DIRECTED Care 08/13/21 16:48 Active Sodium Chloride 0.9% [Saline Flush] Med 08/13/21 16:48 Active 10 ml FLUSH ASDIRECTED PRN Peripheral IV Insertion Adult [OM.PC] Stat Oth 08/13/21 16:48 Ordered Medication Orders Sodium Chloride (Sodium Chloride 0.9% 10 Ml Syringe) 10 ml FLUSH ASDIRECTED PRN PRN Reason: Keep Vein Open Last Admin: 08/13/21 17:59 Dose: 10 ml Documented by: SALEEM Labs: Laboratory Tests 08/13/21 08/13/21 08/13/21 Range/Units 17:00 18:07 18:07 WBC 13.33 H (3.98-10.04) K/mm3 RBC 5.00 (3.98-5.22) M/mm3 Hgb 14.6 (11.2-15.7) gm/dl Hct 45.4 H (34.1-44.9) % MCV 90.8 D (79.4-94.8) fl MCH 29.2 (25.6-32.2) pg MCHC 32.2 (32.2-35.5) g/dl RDW Std Deviation 43.0 (36.4-46.3) fL Plt Count 221 (182-369) K/mm3 MPV 9.5 (9.4-12.3) fl Neut % (Auto) 92.7 H (34.0-71.1) % Lymph % (Auto) 2.3 L (19.3-51.7) % [place] % (Auto) 4.5 L (4.7-12.5) % Eos % (Auto) 0 L (0.7-5.8) Baso % (Auto) 0.2 (0.1-1.2) % Neut # (Auto) 12.36 H (1.56-6.13) K/mm3 Lymph # (Auto) 0.31 L (1.18-3.74) K/mm3 [place] # (Auto) 0.60 H (0.24-0.36) K/mm3 Eos # (Auto) 0.00 L (0.04-0.36) K/mm3 Baso # (Auto) 0.02 (0.01-0.08) K/mm3 Manual Slide Review Abnormal smear Sodium 142 (136-145) mEq/L Potassium 3.7 (3.5-5.1) mEq/L Chloride 106 (98-107) mEq/L Carbon Dioxide 24 (21-32) mEq/L Anion Gap 15.7 H (5-15) BUN 17 (7-18) mg/dL Creatinine 0.6 (0.55-1.02) mg/dL Est Cr Clr Drug Dosing 93.65 mL/min Estimated GFR (MDRD) > 60 (>60) mL/min BUN/Creatinine Ratio 28.3 H (14-18) Glucose 96 (70-99) mg/dL Calcium 8.4 L (8.5-10.1) mg/dL Magnesium 2.0 (1.8-2.4) mg/dL Total Bilirubin 0.5 (0.2-1.0) mg/dL AST 11 L (15-37) U/L ALT 19 (14-59) U/L Alkaline Phosphatase 41 L (46-116) U/L C-Reactive Protein 2.0 H* (<1.0) mg/dL Total Protein 7.3 (6.4-8.2) g/dl Albumin 3.9 (3.4-5.0) g/dl Globulin 3.4 gm/dL Albumin/Globulin Ratio 1.2 (1-2) Lipase 82 (73-393) U/L HCG, Quant < 1.0 mIU/mL Urine Color (Yellow) Urine Appearance (Clear) Urine pH (5.0-8.0) Ur Specific [place] (1.005-1.030) Urine Protein (Negative) Urine Glucose (UA) (Negative) Urine Ketones (Negative) Urine Occult Blood (Negative) Urine Nitrite (Negative) Urine Bilirubin (Negative) Urine Urobilinogen (0.2-1.0) Ur Leukocyte Esterase (Negative) Urine RBC (0-5) /hpf Urine WBC (0-5) /hpf Ur Squamous Epith Cells (0-5) /hpf Urine Bacteria (FEW) /hpf Urine Mucus (FEW) /hpf Influenza Type A RNA Cancelled Influenza Type B RNA Cancelled SARS-CoV-2 RNA (BRETT) Negative (NEGATIVE) 08/13/21 Range/Units 20:40 WBC (3.98-10.04) K/mm3 RBC (3.98-5.22) M/mm3 Hgb (11.2-15.7) gm/dl Hct (34.1-44.9) % MCV (79.4-94.8) fl MCH (25.6-32.2) pg MCHC (32.2-35.5) g/dl RDW Std Deviation (36.4-46.3) fL Plt Count (182-369) K/mm3 MPV (9.4-12.3) fl Neut % (Auto) (34.0-71.1) % Lymph % (Auto) (19.3-51.7) % [place] % (Auto) (4.7-12.5) % Eos % (Auto) (0.7-5.8) Baso % (Auto) (0.1-1.2) % Neut # (Auto) (1.56-6.13) K/mm3 Lymph # (Auto) (1.18-3.74) K/mm3 [place] # (Auto) (0.24-0.36) K/mm3 Eos # (Auto) (0.04-0.36) K/mm3 Baso # (Auto) (0.01-0.08) K/mm3 Manual Slide Review Sodium (136-145) mEq/L Potassium (3.5-5.1) mEq/L Chloride (98-107) mEq/L Carbon Dioxide (21-32) mEq/L Anion Gap (5-15) BUN (7-18) mg/dL Creatinine (0.55-1.02) mg/dL Est Cr Clr Drug Dosing mL/min Estimated GFR (MDRD) (>60) mL/min BUN/Creatinine Ratio (14-18) Glucose (70-99) mg/dL Calcium (8.5-10.1) mg/dL Magnesium (1.8-2.4) mg/dL Total Bilirubin (0.2-1.0) mg/dL AST (15-37) U/L ALT (14-59) U/L Alkaline Phosphatase (46-116) U/L C-Reactive Protein (<1.0) mg/dL Total Protein (6.4-8.2) g/dl Albumin (3.4-5.0) g/dl Globulin gm/dL Albumin/Globulin Ratio (1-2) Lipase (73-393) U/L HCG, Quant mIU/mL Urine Color Yellow (Yellow) Urine Appearance Clear (Clear) Urine pH 5.5 (5.0-8.0) Ur Specific [place] > or = 1.030 (1.005-1.030) Urine Protein Negative (Negative) Urine Glucose (UA) Negative (Negative) Urine Ketones 3+ H (Negative) Urine Occult Blood Negative (Negative) Urine Nitrite Negative (Negative) Urine Bilirubin 1+ H (Negative) Urine Urobilinogen 0.2 (0.2-1.0) Ur Leukocyte Esterase Negative (Negative) Urine RBC 0-5 (0-5) /hpf Urine WBC 0-5 (0-5) /hpf Ur Squamous Epith Cells 5-10 H (0-5) /hpf Urine Bacteria Moderate H (FEW) /hpf Urine Mucus Many H (FEW) /hpf Influenza Type A RNA Influenza Type B RNA SARS-CoV-2 RNA (BRETT) (NEGATIVE) Meds: Medications Generic Name Dose Route Start Last Admin Trade Name Freq PRN Reason Stop Dose Admin Sodium Chloride 10 ml 08/13/21 16:48 08/13/21 17:59 Sodium Chloride 0.9% 10 Ml Syringe FLUSH 10 ml ASDIRECTED PRN Administration Keep Vein Open Discontinued Medications Generic Name Dose Route Start Last Admin Trade Name Freq PRN Reason Stop Dose Admin Dicyclomine HCl 20 mg 08/13/21 19:03 08/13/21 19:21 Dicyclomine 10 Mg Cap PO 08/13/21 19:04 20 mg ONETIME ONE Administration Sodium Chloride 1,000 mls @ 999 mls/hr 08/13/21 17:00 08/13/21 17:58 Normal Saline IV 08/13/21 17:59 999 mls/hr Q1H MELISSA Administration Sodium Chloride 1,000 mls @ 999 mls/hr 08/13/21 19:02 08/13/21 19:21 Normal Saline IV 08/13/21 20:02 999 mls/hr NOW STA Administration Ketorolac Tromethamine 30 mg 08/13/21 19:02 08/13/21 19:21 Ketorolac 30 Mg/Ml Sdv IVPUSH 08/13/21 19:03 30 mg ONETIME ONE Administration Ondansetron HCl 4 mg 08/13/21 16:48 08/13/21 17:58 Ondansetron 4 Mg/2 Ml Sdv IVPUSH 08/13/21 16:49 4 mg ONETIME ONE Administration - Re-Assessments/Exams Free Text/Narrative Re-Assessment/Exam: Patient is a 45-year-old female presenting to the emergency department with complaints of generalized abdominal cramping, diarrhea, and vomiting which began during the evening last night. On exam, she has mild generalized abdominal tenderness. Blood work, Covid test, IV fluids, and Zofran were ordered per standing order during the triage process. Hematology significant for WBC minimally elevated 13.33, anion gap 15.7, CRP 2.0. Otherwise unremarkable. Covid is negative. She has not produced a urine sample thus far. Vomiting and nausea has improved with the Zofran. She has been tolerating ice chips. We will give her another liter of fluid, Bentyl for abdominal cramping, Toradol for headache. 08/13/21 21:20 Urinalysis is negative for infection. Patient is feeling better. I will discharge her home with prescription for Bentyl and Zofran. Recommend clear liquid diet for 24 to 72 hours and slowly advance as tolerated. Discussed with patient that if her symptoms do not improve over the next few days, I would recommend being tested for Covid again as she has had such close exposure to Covid positive individuals. Discussed return precautions. Discharge instructions as documented. Departure - Departure Time of Disposition: 21:21 Disposition: Home, Self-Care 01 Condition: Good Clinical Impression: Viral gastroenteritis - Discharge Information *PRESCRIPTION DRUG MONITORING PROGRAM REVIEWED*: No *COPY OF PRESCRIPTION DRUG MONITORING REPORT IN PATIENT SEN: No Prescriptions: Dicyclomine [Bentyl] 20 mg PO Q8H PRN #12 tab PRN Reason: Abdominal Pain Ondansetron [Zofran ODT] 4 mg PO Q6H PRN #10 tab.dis PRN Reason: Nausea/Vomiting Referrals: Vicki Torres MD [Primary Care Provider] - Forms: ED Department Discharge Additional Instructions: Use the Zofran and dicyclomine as prescribed. Recommend clear liquid diet for the next 24 to 72 hours and slowly advance as tolerated. If symptoms fail to improve over the next few days, I would recommend being retested for Covid. If you experience any new or worsening symptoms of concern, please do not hesitate to return to the emergency department for reevaluation. Sepsis Event Note (ED) - Focused Exam Vital Signs: Vital Signs Temp Pulse Resp BP Pulse Ox 08/13/21 19:00 96 18 100/65 97 08/13/21 16:45 100.1 F 106 H 20 107/73 98 - My Orders Last 24 Hours: My Active Orders 08/13/21 16:48 Communication Order [RC] ASDIRECTED Communication Order [RC] ASDIRECTED Communication Order [RC] ASDIRECTED Communication Order [RC] ASDIRECTED Orthostatic Vital Signs [RC] ASDIRECTED Peripheral IV Care [RC] . DIRECTED Sodium Chloride 0.9% [Saline Flush] 10 ml FLUSH ASDIRECTED PRN Peripheral IV Insertion Adult [OM.PC] Stat - Assessment/Plan Last 24 Hours: My Active Orders 08/13/21 16:48 Communication Order [RC] ASDIRECTED Communication Order [RC] ASDIRECTED Communication Order [RC] ASDIRECTED Communication Order [RC] ASDIRECTED Orthostatic Vital Signs [RC] ASDIRECTED Peripheral IV Care [RC] . DIRECTED Sodium Chloride 0.9% [Saline Flush] 10 ml FLUSH ASDIRECTED PRN Peripheral IV Insertion Adult [OM.PC] Stat
== END 2021-08-13 21:38 | disposition home or self-care (01) ==
LOC: JD.ED 15:52
DX: A08.4 Viral intestinal infection, unspecified (principal); Z79.82 Long term (current) use of aspirin; Z91.041 Radiographic dye allergy status; Z88.1 Allergy status to other antibiotic agents; Z88.0 Allergy status to penicillin; Z20.822 Contact with and (suspected) exposure to COVID-19
CPT/HCPCS: 36415; 80053; 81001; 83690; 83735; 84702; 85025; 86140; 87635; 87804; 96374; 96375; 99284; A9270; J1885; J2405; J7030; U0002

== ENCOUNTER 2021-11-18 15:58 | Emergency (ER) | payer MEDICAID ==
[2021-11-18 16:44] VITALS: BP 126/78; PULSE 76
== END 2021-11-18 20:00 | disposition home or self-care (01) ==
LOC: JD.ED 15:58
DX: S86.112A Strain of other muscle(s) and tendon(s) of posterior muscle group at lower leg level, left leg, initial encounter (principal); Z88.1 Allergy status to other antibiotic agents; Z91.041 Radiographic dye allergy status; Z88.0 Allergy status to penicillin; Z79.82 Long term (current) use of aspirin; Z79.899 Other long term (current) drug therapy
CPT/HCPCS: 36415; 85379; 93971-26-LT; 93971-LT; 99284; 99284-25

== ENCOUNTER 2022-06-29 17:27 | Emergency (ER) | payer MEDICAID ==
[2022-06-29 18:11] VITALS: BP 115/85; PULSE 93
== END 2022-06-29 19:47 | disposition home or self-care (01) ==
LOC: JD.ED 17:27
DX: M79.604 Pain in right leg (principal); K21.9 Gastro-esophageal reflux disease without esophagitis; Z79.899 Other long term (current) drug therapy; Z88.8 Allergy status to other drugs, medicaments and biological substances
CPT/HCPCS: 93971-26-RT; 93971-RT; 99283

== ENCOUNTER 2022-09-20 16:53 | Emergency (ER) | payer MEDICAID ==
[2022-09-20 17:29] VITALS: BP 122/85; PULSE 75
[2022-09-20] MEDS ORDERED: Sodium Chloride 0.9% 10 ML Syringe FLUSH PRN (17:42)
[2022-09-20] MEDS ORDERED: HYDROmorphone 0.5 MG/0.5 ML Syringe IVPUSH ONE (17:44)
[2022-09-20] MEDS ORDERED: Sodium Chloride 0.9% 1,000 ML IV SCH (17:45)
[2022-09-20 18:34] LABS: ESTIMATED GFR 108 mL/min (>60)
[2022-09-20] MEDS ORDERED: Acetaminophen/oxyCODONE 325-5 MG Tab PO ONE (21:40)
== END 2022-09-20 22:20 | disposition home or self-care (01) ==
LOC: JD.ED 16:53
DX: N83.201 Unspecified ovarian cyst, right side (principal); Z91.041 Radiographic dye allergy status; Z88.1 Allergy status to other antibiotic agents; Z88.0 Allergy status to penicillin; Z79.899 Other long term (current) drug therapy; Z90.49 Acquired absence of other specified parts of digestive tract; Z90.710 Acquired absence of both cervix and uterus
CPT/HCPCS: 36415; 76830; 80053; 81001; 83690; 85025; 96361; 96374; 99284; A9270; J1170; J3490; J7030

== ENCOUNTER 2022-12-22 19:26 | Emergency (ER) | payer MEDICAID ==
[2022-12-22 19:35] VITALS: BP 112/76; PULSE 79
== END 2022-12-22 21:09 | disposition home or self-care (01) ==
LOC: JD.ED 19:26
DX: R10.31 Right lower quadrant pain (principal); Z91.041 Radiographic dye allergy status; Z88.1 Allergy status to other antibiotic agents; Z88.0 Allergy status to penicillin; Z79.01 Long term (current) use of anticoagulants
CPT/HCPCS: 36415; 74176; 74176-26; 80053; 81001; 83690; 85025; 99284

== ENCOUNTER 2023-09-13 20:14 | Emergency (ER) | payer SELFPAY ==
[2023-09-13] MEDS ORDERED: Sodium Chloride 0.9% 10 ML Syringe FLUSH PRN (21:48)
[2023-09-13 22:01] LABS: BASOPHILS ABSOLUTE AUTO 0.1 K/mm3 (0.0-0.2); BASOPHILS PERCENT AUTO 0.9 % (0.0-1.0); EOSINOPHILS ABSOLUTE AUTO 0.1 K/mm3 (0.0-0.4); HEMOGLOBIN 14.4 gm/dl (12.0-16.0); IMMATURE GRAN PERCENT AUTO 0.8 % (0.0-0.4); LYMPHOCYTES ABSOLUTE AUTO 2.4 K/mm3 (1.0-4.8); LYMPHOCYTES PERCENT AUTO 18.5 % (24.0-44.0); MEAN CORPUSCULAR HEMOGLOBIN 30.1 pg (28.0-32.0); MEAN CORPUSCULAR HGB CONC 33.5 g/dl (32.0-36.0); MEAN PLATELET VOLUME 9.2 fl (9.4-12.3); MONOCYTES PERCENT AUTO 7.8 % (0.0-8.0); NEUTROPHILS ABSOLUTE AUTO 9.1 K/mm3 (1.8-7.7); PLATELET COUNT,PLT 252 K/mm3 (150-400); RED BLOOD CELL COUNT 4.78 M/mm3 (4.10-5.30); WHITE BLOOD CELL COUNT,WBC 12.77 K/mm3 (3.9-11.3)
[2023-09-13 22:02] LABS: APPEARANCE,URINE CLEAR (Clear); BILIRUBIN,URINE NEGATIVE (Negative); COLOR,URINE YELLOW (Yellow); GLUCOSE,URINE NEGATIVE (Negative); KETONES,URINE NEGATIVE (Negative); LEUKOCYTE ESTERASE,URINE NEGATIVE (Negative); NITRITE,URINE NEGATIVE (Negative); OCCULT BLOOD,URINE NEGATIVE (Negative); PROTEIN,URINE NEGATIVE (Negative); UROBILINOGEN,URINE 0.2 (0.2-1.0)
[2023-09-13 22:14] LABS: BACTERIA,URINE MODERATE /hpf (FEW); MUCUS,URINE FEW /hpf (FEW); RBC,URINE 0-5 /hpf (0-5); WBC,URINE 0-5 /hpf (0-5)
[2023-09-13 22:26] LABS: ALBUMIN 3.6 g/dl (3.4-5.0); ANION GAP 12.3 (5-15); BILIRUBIN TOTAL 0.3 mg/dL (0.2-1.0); BUN/CREATININE RATIO 21.4 (14-18); C-REACTIVE PROTEIN 1.2 mg/dL (<1.0); CREATININE 0.7 mg/dL (0.55-1.02); EST CRCL DRUG DOSING (CG) 78.58 mL/min; POTASSIUM,K 3.3 mEq/L (3.5-5.1); PROTEIN TOTAL,TP 7.2 g/dl (6.4-8.2)
[2023-09-14 00:18] VITALS: BP 121/71; PULSE 79
== END 2023-09-14 00:17 | disposition home or self-care (01) ==
LOC: JD.ED 20:14
DX: A08.4 Viral intestinal infection, unspecified (principal); Z91.041 Radiographic dye allergy status; Z88.1 Allergy status to other antibiotic agents; Z88.0 Allergy status to penicillin; Z79.899 Other long term (current) drug therapy; Z90.49 Acquired absence of other specified parts of digestive tract; Z90.710 Acquired absence of both cervix and uterus
CPT/HCPCS: 36415; 74018; 74018-26; 80053; 81001; 83690; 83735; 84702; 85025; 86140; 99284